=== PATIENT | male | born 1970 | race Caucasian/White ===

== ENCOUNTER 2020-12-12 14:23 | Emergency (ER) | payer SELFPAY ==
[2020-12-12 14:34] VITALS: BP 152/96; PULSE 80; RESP 16; TEMP 36.7; O2SAT 99
--- NOTE | 2020-12-12 14:39 | W.ED.GENAD ---
Discharge Plan Disposition Patient Disposition: HOME Condition: Stable Discharge Details Clinical Impression: Abrasion, corneal, Eye foreign body Primary Care Provider: Unknown,Unknown ED Provider: Jean Guillen Home Meds and New Rx's Prescriptions: New erythromycin 5 mg/gram (0.5 %) ointment 0.5 inch ophthalmic (eye) QID Qty: 1 RF: 0 Discharge Instructions Instructions: Corneal Abrasion (ED), Eye Foreign Body (ED) Additional Instructions: Foreign body of the eye removed without difficulty. [id number] Tylenol and/or Motrin as directed for discomfort. Avoid rubbing your eye. Erythromycin as directed. You may also use [id number] lubricating drops such as Systane or GenTeal, do not use at the same time as erythromycin. Please watch for new or worsening symptoms and return to the ER for any concerns. If symptoms are to persist over the next few days, I do recommend reaching out your clerical support specialist for reevaluation Medical Decision Making 50-year-old gentleman presents for potential foreign body and/or abrasion to his left eye after working outside yesterday. Eyelid flipped for examination. Tetracaine and fluorescein used for examination. Foreign body visualized and removed. Examined again with fluorescein, uptake present, corneal abrasion. Patient reports feeling asymptomatic. Denies blurry or double vision. We will instill Ilotycin here in the ER. HPI General Mode of arrival: ambulatory. Date/Time Provider Initiated Documentation: 12/12/20 14:38. Limitations to Documentation: no limitations. Information obtained by: patient. HPI Narrative: This is a 50-year-old man, denies significant past medical history, does not wear contacts or glasses, concerned about a potential foreign body and/or abrasion to his left eye. He states yesterday he was outside, felt as though dirt blew into his eye. He used jtam-nkp-bjvaccq drops with mild relief. Woke up this morning with minimal crusting. Denies any other injuries, fever, double vision or visual changes. Denies blurry vision Related Data Home Medications Medication Instructions Recorded Confirmed erythromycin 0.5 inch OPHTHALMIC (EYE) QID #1 g 12/12/20 Previous Rx's Medication Instructions Recorded erythromycin 0.5 inch OPHTHALMIC (EYE) QID #1 g 12/12/20 Allergies Allergy/AdvReac Type Severity Reaction Status Date / Time diphenhydramine Allergy Anaphylaxis Unverified 12/12/20 14:33 General Stated Complaint: EyeProblem SHANNON: 4 Review of Systems Constitutional Constitutional: Denies headache(s) Eyes Eyes: Denies blurry vision, Denies change in vision and Reports irritation ENT Ears, Nose, Mouth, and Throat: Denies headache(s) Neurologic Neurologic: Denies headache(s) [facility] Social History Smoking/Tobacco Use Status: Former Tobacco Use Smoking risk assessment performed?: Yes Alcohol Intake: current Alcohol Intake frequency: a few times a month Drug use: Never Do you feel safe at home: Yes Do you feel safe in your relationship?: Yes Exam Const General: cooperative, healthy appearing, comfortable and no acute distress Orientation: alert, awake and oriented x3 HENMT Head: normal to inspection, normocephalic and atraumatic Face and sinus: normal facial exam Mouth: moist mucous membranes Eyes Alignment and Position: alignment normal Periorbital: periorbital findings normal Eyelids: eyelids normal and other (Left upper lid flipped) Conjunctivae: conjunctival abnormality left conjunctival injection diffuse (mild) Sclera: sclerae normal Cornea: corneas abnormal on the left fluorescein used, abrasion and foreign body (3 o'clock position) and fluorescein used Pupils: PERRL EOM: EOM intact bilaterally Direct ophthalmoscopy: normal light reflex Neck Neck: normal visual inspection, full ROM, trachea midline and supple Resp Effort & Inspection: normal respiratory effort and able to speak in complete sentences Skin General skin exam: no rashes or lesions noted Neuro General: patient alert, patient awake, moves all extremities and no focal motor deficits Sensory Exam: no sensory deficits noted Psych Appearance: grossly normal Mental Status: mental status grossly normal Course Vital Signs Vital signs: Vital Signs Temperature 36.7 C 12/12/20 14:34 Pulse 80 12/12/20 14:34 Respiratory Rate 16 12/12/20 14:34 Blood Pressure 152/96 H 12/12/20 14:34 Pulse Oximetry 99 12/12/20 14:34 Temperature 36.7 C 12/12/20 14:34 Temperature Source Temporal Artery Scan 12/12/20 14:34 Pulse 80 12/12/20 14:34 Respiratory Rate 16 12/12/20 14:34 Respiratory Effort Non-Labored 12/12/20 14:37 Blood Pressure 152/96 H 12/12/20 14:34 Blood Pressure Position Sitting 12/12/20 14:34 Pulse Oximetry 99 12/12/20 14:34 Oxygen Delivery Method Room Air 12/12/20 14:34 Oxygen Flow Rate 0 12/12/20 14:34 Pain Level 7 12/12/20 14:34 Procedures FB Removal Eye Time Out performed: Yes Location: eye (L) Topical anesthetic used: tetracaine Foreign body: other (Unsure) Technique: cotton tip swab (Unsuccessful) and needle (Successful) Procedure performed under: direct visualization with magnification Post-procedure medication: ophthalmic antibiotic Patient tolerated procedure: well and no complications
[2020-12-12] MEDS: Balanced Salt Solution 15 ML BTL (15:03)
[2020-12-12] MEDS: Fluorescein STRIPS 100/BOX 1 MG (15:04)
[2020-12-12] MEDS: Tetracaine 0.5% 4 ML BTL (15:04)
[2020-12-12] MEDS: Erythromycin Ophth Oint 3.5 GM TUBE OS (15:35)
--- NOTE | 2020-12-12 16:47 | NUR.NOTE ---
Nursing Note: Vitaly called stating he still had some mild burning sensation in his eye. Is this normal?--reviewed Erthromycin eye ointment use-3-4 times daily. If discomfort becomes worse/visual changes return to er for re-evaluation.
== END 2020-12-12 15:43 | disposition home or self-care (01) ==
PROVIDERS: Emergency Provider Physician Assistant
DX: T15.02XA Foreign body in cornea, left eye, initial encounter (principal); X58.XXXA Exposure to other specified factors, initial encounter
CPT/HCPCS: 99283

== ENCOUNTER 2022-01-20 18:08 | Outpatient (REF) | payer BC, SELFPAY ==
[2022-01-20 18:57] LABS: ESR 24 mm/hr (0-20)
[2022-01-20 18:58] LABS: Abs Immature Grans 0.06 10^3/uL (0.0-0.06); Absolute Basophil Count 0.03 10^3/uL (0.0-0.2); Absolute Eosinophil Count 0.24 10^3/uL (0.0-0.7); Absolute Lymphocyte Count 1.05 10^3/uL (1.2-3.4); Absolute Monocyte Count 0.44 10^3/uL (0.1-0.8); Absolute Neutrophil Count 4.67 10^3/uL (1.2-6.7); Basophils % 0.5; Eosinophils % 3.7; HGB 15.6 g/dL (13.5-17.5); Immature Grans % 0.9; Lymphocytes % 16.2; MCH 29.2 pg (27.0-33.0); MCHC 34.7 % (32.0-36.0); MCV 84 fL (80-95); MPV 12.6 fL (8.0-11.0); Monocytes % 6.8; Neutrophils % 71.9; Platelet Count 174 10^3/uL (130-400); RBC 5.34 10^6/uL (4.36-5.78); RDW 12.3 % (11.8-14.1); RDW-SD 36.9 fL; WBC 6.49 10^3/uL (4.4-10.8)
[2022-01-20 19:19] LABS: ALT 67 U/L (16-63); AST 27 U/L (15-37); Albumin 3.7 g/dL (3.4-5.0); Alkaline Phosphatase 139 U/L (46-116); Anion Gap 5.8 mmol/L (3-11); BUN 16 mg/dL (7-18); Bilirubin, Total 0.8 mg/dL (0.2-1.0); C-Reactive Protein 2.44 mg/dL (0.0-0.3); CO2 31.2 mmol/L (21.0-32.0); CREATININE 1.3 mg/dL (0.70-1.30); Calcium 8.7 mg/dL (8.5-10.1); Chloride 99 mmol/L (98-107); Estimated GFR 65.69 (mL/min/1.73m2); Glucose 430 mg/dL (74-106); Sodium 136 mmol/L (136-145); TSH (W/Ref FT4) 1.49 uIU/mL (0.36-3.74); Total Protein 7.6 g/dL (6.4-8.2)
== END 2022-01-20 18:09 | disposition home or self-care (01) ==
LOC: LBN 18:08
PROVIDERS: Visit Provider Nurse Practitioner Family
DX: R63.4 Abnormal weight loss (principal)
CPT/HCPCS: 80053; 85652; 84443; 85025; 86140

== ENCOUNTER 2023-01-18 11:21 | Emergency (ER) | payer BC, SELFPAY ==
[2023-01-18] VITALS (43 sets, daily range): BP systolic 141–189; BP diastolic 82–143; PULSE 59–94; RESP 11–22; TEMP 36.5; O2SAT 94–100
[2023-01-18 12:05] LABS: Abs Immature Grans 0.02 10^3/uL (0.0-0.06); Absolute Basophil Count 0.03 10^3/uL (0.0-0.2); Absolute Lymphocyte Count 0.56 10^3/uL (1.2-3.4); Absolute Monocyte Count 0.34 10^3/uL (0.1-0.8); Absolute Neutrophil Count 3.58 10^3/uL (1.2-6.7); Basophils % 0.6; Eosinophils % 2.2; HCT 42.8 % (40.0-50.0); HGB 14.3 g/dL (13.5-17.5); Immature Grans % 0.4; Lymphocytes % 12.1; MCH 29.2 pg (27.0-33.0); MCHC 33.4 % (32.0-36.0); MCV 88 fL (80-95); Monocytes % 7.3; Neutrophils % 77.4; Platelet Count 126 10^3/uL (130-400); RBC 4.89 10^6/uL (4.36-5.78); RDW 14.1 % (11.8-14.1); RDW-SD 45.6 fL; WBC 4.63 10^3/uL (4.4-10.8)
--- NOTE | 2023-01-18 12:07 | W.ED.GENAD ---
Discharge Plan Disposition Patient Disposition: Home Condition: Serious Discharge Details Clinical Impression: Pancreatic mass, Hyperbilirubinemia, Transaminitis Primary Care Provider: Unknown,Unknown ED Provider: Asa Lawrence Home Meds and New Rx's Prescriptions: No Action albuterol sulfate 90 mcg/actuation HFA aerosol inhaler 2 puff inhalation Q6H PRN metformin 500 mg tablet 500 mg PO BID insulin glargine [Lantus Solostar U-100 Insulin] 100 unit/mL (3 mL) insulin pen 10 unit subcut QPM omeprazole 20 mg capsule,delayed release(DR/EC) 20 mg PO DAILY Patient Comments: pt states not taking meclizine 25 mg tablet 25 mg PO TID Patient Comments: pt states not taking erythromycin 5 mg/gram (0.5 %) ointment 0.5 inch ophthalmic (eye) QID Qty: 1 0RF Patient Comments: pt states not taking Discharge Instructions Stand Alone Forms: Work Release Medical Decision Making 1213?52-year-old male with history of insulin-dependent diabetes, on metformin, hypertension, here with mid abdominal discomfort over the past few days with associated jaundice. Patient is tender in his mid abdomen with no peritoneal findings. Patient is quite hypertensive. Afebrile, saturating well in no respiratory distress. Concern for acute hepatitis. Plan to obtain screening labs. -- Labs reviewed: transaminitis and hyperbilirubinemia (9.9) noted. 1359 -- I called [facility] transfer center and requested transfer. They are at capacity at [facility] and cannot accept the patient in transfer. I called [facility] transfer center and requested emergent transfer. They are at capacity and cannot accept the patient in transfer. [facility] transfer center contacted again and noted [facility] as potential option. Awaiting call back. 1448 --received call back from [facility] and unfortunately [facility] was unable to accept the patient in transfer because of lack of capability. [facility] was contacted and refused due to lack of capacity. [facility] was then contacted, I spoke with Dr. Medrano, discussed ED presentation and course and she will accept the patient in transfer. Lab Data Lab results reviewed: Yes I reviewed the patient's lab results. Labs: Laboratory Tests Range/Units 01/18/23 01/18/23 01/18/23 11:44 11:44 11:44 WBC (4.4-10.8) 10^3/uL 4.63 RBC (4.36-5.78) 10^6/uL 4.89 Hgb (13.5-17.5) g/dL 14.3 Hct (40.0-50.0) % 42.8 MCV (80-95) fL 88 MCH (27.0-33.0) pg 29.2 MCHC (32.0-36.0) % 33.4 RDW (11.8-14.1) % 14.1 Plt Count (130-400) 10^3/uL 126 L MPV (8.0-11.0) fL Immature Gran % 0.4 Neutrophils % 77.4 Lymphocytes % 12.1 Monocytes % 7.3 Eosinophils % 2.2 Basophils % 0.6 Nucleated RBC % (0.0-0.3) % 0.0 Absolute Neutrophils (1.2-6.7) 10^3/uL 3.58 Absolute Lymphocytes (1.2-3.4) 10^3/uL 0.56 L Absolute Monocytes (0.1-0.8) 10^3/uL 0.34 Absolute Eosinophils (0.0-0.7) 10^3/uL 0.10 Absolute Basophils (0.0-0.2) 10^3/uL 0.03 RBC Morphology Normal VBG Lactate (0.6-1.4) mmol/L Sodium (136-145) mmol/L 138 Potassium (3.5-5.1) mmol/L 3.4 L Chloride (98-107) mmol/L 100 Carbon Dioxide (21.0-32.0) mmol/L 28.2 Anion Gap (3-11) mmol/L 9.8 BUN (7-18) mg/dL 19 H Creatinine (0.70-1.30) mg/dL 1.2 Est GFR (CKD-EPI 2020) (mL/min/1.73m2) 71.86 Glucose (74-106) mg/dL 249 H Calcium (8.5-10.1) mg/dL 8.9 Magnesium (1.8-2.4) mg/dL 1.9 Total Bilirubin (0.2-1.0) mg/dL 9.9 H AST (15-37) U/L 152 H ALT (16-63) U/L 492 H Alkaline Phosphatase (46-116) U/L 269 H Troponin I Cancelled < 50 Total Protein (6.4-8.2) g/dL 7.4 Albumin (3.4-5.0) g/dL 3.6 Lipase Cancelled 11 L TSH (0.36-3.74) uIU/mL 1.38 Range/Units 01/18/23 01/18/23 11:44 12:18 WBC (4.4-10.8) 10^3/uL RBC (4.36-5.78) 10^6/uL Hgb (13.5-17.5) g/dL Hct (40.0-50.0) % MCV (80-95) fL MCH (27.0-33.0) pg MCHC (32.0-36.0) % RDW (11.8-14.1) % Plt Count (130-400) 10^3/uL MPV (8.0-11.0) fL Immature Gran % Neutrophils % Lymphocytes % Monocytes % Eosinophils % Basophils % Nucleated RBC % (0.0-0.3) % Absolute Neutrophils (1.2-6.7) 10^3/uL Absolute Lymphocytes (1.2-3.4) 10^3/uL Absolute Monocytes (0.1-0.8) 10^3/uL Absolute Eosinophils (0.0-0.7) 10^3/uL Absolute Basophils (0.0-0.2) 10^3/uL RBC Morphology VBG Lactate (0.6-1.4) mmol/L 1.1 Sodium (136-145) mmol/L Potassium (3.5-5.1) mmol/L Chloride (98-107) mmol/L Carbon Dioxide (21.0-32.0) mmol/L Anion Gap (3-11) mmol/L BUN (7-18) mg/dL Creatinine (0.70-1.30) mg/dL Est GFR (CKD-EPI 2020) (mL/min/1.73m2) Glucose (74-106) mg/dL Calcium (8.5-10.1) mg/dL Magnesium (1.8-2.4) mg/dL Total Bilirubin (0.2-1.0) mg/dL AST (15-37) U/L ALT (16-63) U/L Alkaline Phosphatase (46-116) U/L Troponin I Total Protein (6.4-8.2) g/dL Albumin (3.4-5.0) g/dL Lipase TSH (0.36-3.74) uIU/mL Cancelled HPI General Mode of arrival: ambulatory. Date/Time Provider Initiated Documentation: 01/18/23 11:26. Limitations to Documentation: no limitations. Information obtained by: patient. HPI Narrative: 52-year-old male with history of insulin-dependent diabetes, hypertension, here with chief complaint of abdominal discomfort. Patient notes abdominal discomfort over the past 3 to 4 days. Discomfort is localized to mid abdomen. He has associated loose stool over the past few days and has not been eating much. No associated nausea vomiting. Patient also notes yellow discoloration to his skin and eyes over the past couple days. Patient has no known history of liver disease. No associated fever. No tick bites. Patient denies regular Tylenol use and when he has used that he is only used a couple tablets. He does not consume alcohol regularly. Patient is a former smoker approximately 20+ pack year. Related Data Home Medications Medication Instructions Recorded Confirmed erythromycin 5 mg/gram (0.5 %) eye 0.5 inch ophthalmic (eye) QID #1 g 12/12/20 ointment albuterol sulfate 90 mcg/actuation 2 puff inhalation Q6H PRN 03/27/22 01/18/23 aerosol inhaler insulin glargine 100 unit/mL (3 10 unit subcut QPM 03/27/22 01/18/23 mL) subcutaneous pen (Lantus Solostar U-100 Insulin) meclizine 25 mg tablet 25 mg PO TID 03/27/22 metformin 500 mg tablet 500 mg PO BID 03/27/22 01/18/23 omeprazole 20 mg capsule,delayed 20 mg PO DAILY 03/27/22 release Previous Rx's Medication Instructions Recorded erythromycin 5 mg/gram (0.5 %) eye 0.5 inch ophthalmic (eye) QID #1 g 12/12/20 ointment Allergies Allergy/AdvReac Type Severity Reaction Status Date / Time diphenhydramine Allergy Anaphylaxis Unverified 12/12/20 14:33 General Stated Complaint: Abd Prob SHANNON: 3 Review of Systems All systems reviewed & are unremarkable except as noted in HPI and below Constitutional Constitutional: Denies fever(s) Gastrointestinal Gastrointestinal: Reports as per HPI PFSH All Active Problems (Updated 01/18/23 @ 14:51 by Asa Lawrence MD) Pancreatic mass (Acute) Hyperbilirubinemia (Acute) Transaminitis (Acute) Abnormal weight loss (Acute) Asthma (Chronic) Hypertension (Chronic) Diabetes (Chronic) Screening for colon cancer (Acute) Abrasion, corneal (Acute) Eye foreign body (Acute) Social History Smoking/Tobacco Use Status: Former Tobacco Use Smoking risk assessment performed?: Yes Alcohol Intake: current Alcohol Intake frequency: a few times a month Drug use: Never Do you feel safe at home: Yes Do you feel safe in your relationship?: Yes Course Vital Signs Vital signs: Vital Signs Temperature 36.5 C 01/18/23 11:30 Pulse 81 01/18/23 11:30 Respiratory Rate 16 01/18/23 11:30 Blood Pressure 181/114 H 01/18/23 11:30 Pulse Oximetry 97 01/18/23 11:30 Temperature 36.5 C 01/18/23 11:30 Pulse 72 01/18/23 11:51 Pulse 74 01/18/23 11:52 Respiratory Rate 19 01/18/23 11:52 Respiratory Effort Normal 01/18/23 11:47 Blood Pressure 171/99 H 01/18/23 11:51 Blood Pressure Mean 118 01/18/23 11:51 Pulse Oximetry 97 01/18/23 11:52 Oxygen Delivery Method Room Air 01/18/23 11:30 Oxygen Flow Rate 0 01/18/23 11:30 Pain Level 5 01/18/23 11:54 Comment States abdominal pain is stabbing, consistent. Nothing makes worse or better. 01/18/23 11:30 Lab/Test Results Lab/Test Results: Laboratory Tests Range/Units 01/18/23 11:44 Troponin I Cancelled Lipase Cancelled
[2023-01-18 12:20] LABS: Diff Comment PLT Morph Reviewed; RBC Morphology Normal
[2023-01-18 12:22] LABS: Lactate 1.1 mmol/L (0.6-1.4)
--- NOTE | 2023-01-18 12:30 | DI.CT_ITS ---
Exam(s) CT ABDOMEN PELVIS W EXAM: CT ABDOMEN PELVIS W CLINICAL HISTORY: mid abdominal pain, acute hyperbilirubinemia TECHNIQUE: Imaging Protocol: Axial computed tomography images with coronal and sagittal reformatted images were created and reviewed CONTRAST MATERIAL: Intravenous: Omnipaque 350 Contrast volume:100 mL Oral: No COMPARISON: No exams were available for comparison FINDINGS: ABDOMEN: Lung Bases: Small hiatal hernia. Liver: Normal density. There is a 5 mm hypodensity in the anterior segment of the right lobe of the l iver. There is a 4 mm hypodensity in the posterior segment of the right lobe of the liver. Portal, Superior Mesenteric, and Splenic Veins: The pancreatic head mass narrows the proximal main po rtal vein. Gallbladder and Biliary Tract: Please see the section under pancreas. There is distention of the gal lbladder. Pancreas: There is a 4.3 x 3.7 cm hypodense mass in the head of the pancreas. There is atrophy of th e distal pancreas with dilatation of the pancreatic duct. There is intra and extrahepatic bile duct dilatation and distention of the gallbladder. Spleen: Splenomegaly. Adrenals: No masses seen. Kidneys: Normal size, contour and axis. No radiodense stones or obstructive uropathy. No masses seen. Abdominal Aorta: Abdominal portion non-dilated. Bowel: No obstruction or bowel wall thickening. There is no evidence of appendicitis. There is a mod erate amount of stool in the colon. There is an area of narrowing near the rectosigmoid junction. T here is dilatation of the sigmoid colon proximally. This may be in peristalsis but small mass cannot be excluded. Colonoscopy should be considered for further evaluation. Peritoneal Cavity: There is a trace amount of free fluid in the pelvis. No free air. Lymph Nodes: Within normal limits. Bones: Within normal limits for the patient's age. No aggressive osseous lesions. Soft Tissues: There is a fat containing left inguinal hernia. PELVIS: Bladder: Symmetric distention, no gross wall thickening. Reproductive Organs: Unremarkable as visualized. Lymph Nodes: Within normal limits. Bones: Within normal limits for the patient's age. IMPRESSION: 1. 4.3 x 3.7 cm pancreatic head mass consistent with malignancy. It causes obstruction of the pancre atic and common bile duct. There is also compression upon the adjacent portal vein. 2. Distended gallbladder with intra and extrahepatic biliary ductal dilatation secondary to the pancr eatic mass. No gallstones are seen. 3. Splenomegaly. 4. Area of narrowing versus peristalsis in the rectosigmoid junction. Colonoscopy should be consider ed for further evaluation. Unexpected findings RADIATION DOSE DELIVERED: 980.14mGy.cm Total DLP DATA REPOSITORY: All CT scans at this facility are submitted to the National Radiology Data Registry (NRDR) Dose Index Registry (DIR) with the [employer] ([employer]). RADIATION OPTIMIZATION: All CT scans at this facility use at least one of these dose optimization te chniques: automated exposure control; mA and/or kV adjustment per patient size (includes targeted exa ms where dose is matched to clinical indication); or iterative reconstruction.
[2023-01-18 12:32] LABS: ALT 492 U/L (16-63); AST 152 U/L (15-37); Albumin 3.6 g/dL (3.4-5.0); Alkaline Phosphatase 269 U/L (46-116); Anion Gap 9.8 mmol/L (3-11); BUN 19 mg/dL (7-18); Bilirubin, Total 9.9 mg/dL (0.2-1.0); CO2 28.2 mmol/L (21.0-32.0); CREATININE 1.2 mg/dL (0.70-1.30); Calcium 8.9 mg/dL (8.5-10.1); Chloride 100 mmol/L (98-107); Estimated GFR 71.86 (mL/min/1.73m2); Glucose 249 mg/dL (74-106); Lipase 11 U/L (16-77); Magnesium 1.9 mg/dL (1.8-2.4); Potassium 3.4 mmol/L (3.5-5.1); Sodium 138 mmol/L (136-145); TSH (W/Ref FT4) 1.38 uIU/mL (0.36-3.74); Total Protein 7.4 g/dL (6.4-8.2); Troponin I < 50 ng/L (<or=60)
[2023-01-18] MEDS: Normal Saline - Diluent 50 ML VIAL IV (13:16)
[2023-01-18] MEDS: Omnipaque 350 MG/ML 100 ML BTL IJ (13:17)
--- NOTE | 2023-01-18 13:38 | DI.VRAD_ITS ---
PROCEDURE INFORMATION: Exam: CT Abdomen And Pelvis With Contrast Exam date and time: 01/18/2023 1:05 PM Age: 52 years old Clinical indication: Abdominal pain; Generalized TECHNIQUE: Imaging protocol: Computed tomography of the abdomen and pelvis with contrast. Radiation optimization: All CT scans at this facility use at least one of these dose optimization techniques: automated exposure control; mA and/or kV adjustment per patient size (includes targeted exams where dose is matched to clinical indication); or iterative reconstruction. Contrast material: OMNIPAQUE 350; Contrast volume: 100 ml; Contrast route: INTRAVENOUS (IV); COMPARISON: No relevant prior studies available. FINDINGS: Liver: No mass. Intra hepatic and extrahepatic ductal dilatation Gallbladder and bile ducts: The gallbladder is distended 13 cm. There is intra hepatic and extrahepatic ductal dilatation. The common bile duct is dilated 16 mm. No definite gallstone in the dilated common duct. . Pancreas: Mass in the head of the pancreas 3.95 x 3.67. Series 4, image 26. It is obstructing the pancreatic duct and the common duct. Findings consistent with pancreatic malignancy. Spleen: Splenomegaly 14 cm. Adrenal glands: Normal. No mass. Kidneys and ureters: Normal. No hydronephrosis. Stomach and bowel: Unremarkable. No obstruction. No mucosal thickening. Appendix: No evidence of appendicitis. Intraperitoneal space: Unremarkable. No free air. No significant fluid collection. Vasculature: Unremarkable. No abdominal aortic aneurysm. Lymph nodes: Unremarkable. No enlarged lymph nodes. Urinary bladder: Unremarkable as visualized. Reproductive: Unremarkable as visualized. Bones/joints: Unremarkable. No acute fracture. Soft tissues: Unremarkable. IMPRESSION: 1. Mass in the head of the pancreas 3.95 x 3.67. Series 4, image 26. It is obstructing the pancreatic duct and the common duct. Findings consistent with pancreatic malignancy. 2. The gallbladder is distended 13 cm. There is intra hepatic and extrahepatic ductal dilatation. The common bile duct is dilated 16 mm. No definite gallstone in the dilated common duct. . 3. Splenomegaly 14 cm. THIS REPORT CONTAINS FINDINGS THAT MAY BE CRITICAL TO PATIENT CARE. The findings were verbally communicated via telephone conference with Asa Lawrence at 1:37 PM EDT on 01/18/2023. The findings were acknowledged and understood. Dictated and Authenticated by: Hussein Looney MD. Ordering:VIJAYA Bray MD
[2023-01-18] MEDS: LORazepam 2 MG/ML VIAL 0.5 MG IVP ×2 (14:15→15:38)
[2023-01-18] MEDS: Lactated Ringers 1,000 ML 125 ML IV (14:57)
[2023-01-21 09:49] LABS: Lyme Ab w Rflx to Lyme Confirm Negative (Negative)
[2023-01-21 11:03] LABS: Hepatitis A Antibody IgM Negative (Negative); Hepatitis B Core Antibody Negative (Negative); Hepatitis B surface Ag Negative (Negative); Hepatitis C Ab w Rflx HCV PCR Negative (Negative)
[2023-01-23 09:17] LABS: Anaplasma phagocytophilum Negative (Negative); B. miyamotoi PCR Negative (Negative); Babesia divergens/MO-1 Negative (Negative); Babesia duncani Negative (Negative); Babesia microti Negative (Negative); Ehrlichia chaffeensis Negative (Negative); Ehrlichia ewingii/canis Negative (Negative); Ehrlichia muris eauclairensis Negative (Negative)
== END 2023-01-18 15:43 | disposition home or self-care (01) ==
PROVIDERS: Emergency Provider Student in an Organized Health Care Education/Training Program
DX: R10.9 Unspecified abdominal pain (principal); E80.6 Other disorders of bilirubin metabolism; R19.00 Intra-abdominal and pelvic swelling, mass and lump, unspecified site; R74.01 Elevation of levels of liver transaminase levels; E11.9 Type 2 diabetes mellitus without complications; Z79.84 Long term (current) use of oral hypoglycemic drugs; I10 Essential (primary) hypertension
CPT/HCPCS: 36415; 80053; 83690; 86704; 86709; 86803; 87340; 87798; 96374; 96375; 99285; 74177; 83605; 83735; 84443; 84484; 85025; 86618; J2060; J3490

== ENCOUNTER 2023-01-25 12:34 | Emergency (ER) | payer BC, SELFPAY ==
[2023-01-25 12:51] VITALS: BP 162/100; PULSE 80; RESP 20; TEMP 37; O2SAT 99
--- NOTE | 2023-01-25 13:15 | W.ED.GENAD ---
Discharge Plan Disposition Patient Disposition: Home Condition: Stable Discharge Details Clinical Impression: Rash Primary Care Provider: Unknown,Unknown ED Provider: Saravanan Hastings Home Meds and New Rx's Prescriptions: New prednisone 20 mg tablet 60 mg PO DAILY 5 Days Qty: 15 0RF Continued albuterol sulfate 90 mcg/actuation HFA aerosol inhaler 2 puff inhalation Q6H PRN metformin 500 mg tablet 500 mg PO BID insulin glargine [Lantus Solostar U-100 Insulin] 100 unit/mL (3 mL) insulin pen 10 unit subcut QPM Discontinued omeprazole 20 mg capsule,delayed release(DR/EC) 20 mg PO DAILY Patient Comments: pt states not taking meclizine 25 mg tablet 25 mg PO TID Patient Comments: pt states not taking erythromycin 5 mg/gram (0.5 %) ointment 0.5 inch ophthalmic (eye) QID Qty: 1 0RF Patient Comments: pt states not taking Discharge Instructions Instructions: Acute Rash (ED) Additional Instructions: follow up with your primary care provider as scheduled tomorrow if you feel more ill, have difficulty breathing or fevers return to the emergency department Medical Decision Making 52 yo male recently seen here and transferred to [place] (all other tertiary care centers at [facility]) for jaundice and pancreatic mass who comes in with cc of rash. HE had ercp and two stents placed while he was there and is waiting for biopsy results before seeing [place] [facility] [place]. He states for a day he has an itchy rash on his arms and torso, no fevers, chills, dyspnea. HE doesn't appear jaundiced and states this resolved shortly after his procedure. He has mild erythematous patches on his right inner arm that is not warm to touch and also on his back of various sizes. He has no severe pain, no mucous membrane lesions. The rash appears to be a dermatitis, no findings on exam or history to suggest infectious etiology, sjs/ten, or anaphylaxis. Will provide short course of oral steroids, has pcp f/u tomorrow, return precautions given. Differential Diagnosis Differential Diagnosis: contact dermatitis, urticaria HPI General Mode of arrival: ambulatory. Date/Time Provider Initiated Documentation: 01/25/23 12:44. Limitations to Documentation: no limitations. Information obtained by: patient. History of Present Illness 52 year old M presents to the emergency department with the chief complaint of rash, described as moderate, Patient started experiencing this day(s) (1) and it has been constant. No relieving factors improve symptom(s), No exacerbating factors reported . Patient notes denies chest pain, fever/chills and shortness of breath. Patient did receive the following treatments prior to arrival, none Related Data Home Medications Medication Instructions Recorded Confirmed albuterol sulfate 90 mcg/actuation 2 puff inhalation Q6H PRN 03/27/22 01/18/23 aerosol inhaler insulin glargine 100 unit/mL (3 10 unit subcut QPM 03/27/22 01/18/23 mL) subcutaneous pen (Lantus Solostar U-100 Insulin) metformin 500 mg tablet 500 mg PO BID 03/27/22 01/18/23 prednisone 20 mg tablet 60 mg PO DAILY 5 days #15 tabs 01/25/23 Previous Rx's Medication Instructions Recorded prednisone 20 mg tablet 60 mg PO DAILY 5 days #15 tabs 01/25/23 Allergies Allergy/AdvReac Type Severity Reaction Status Date / Time diphenhydramine Allergy Anaphylaxis Unverified 01/25/23 12:55 General Stated Complaint: RashLesion SHANNON: 4 Review of Systems All systems reviewed & are unremarkable except as noted in HPI and below Constitutional Constitutional: Denies chills, Denies fever(s) and Denies weakness Cardiovascular Cardiovascular: Denies chest pain and Denies dyspnea Respiratory Respiratory: Denies cough and Denies dyspnea Gastrointestinal Gastrointestinal: Denies abdominal pain, Denies nausea and Denies vomiting Musculoskeletal Musculoskeletal: Denies joint swelling Neurologic Neurologic: Denies weakness Psychiatric Psychiatric: Denies depression PFSH All Active Problems (Updated 01/25/23 @ 13:16 by Saravanan Hastings MD) Pancreatic mass (Acute) Hyperbilirubinemia (Acute) Transaminitis (Acute) Rash (Acute) Abnormal weight loss (Acute) Asthma (Chronic) Hypertension (Chronic) Diabetes (Chronic) Screening for colon cancer (Acute) Abrasion, corneal (Acute) Eye foreign body (Acute) Social History Smoking/Tobacco Use Status: Former Tobacco Use Smoking risk assessment performed?: Yes Alcohol Intake: current Alcohol Intake frequency: a few times a month Drug use: Never Substance use type: does not use Do you feel safe at home: Yes Do you feel safe in your relationship?: Yes Exam Const General: no acute distress Orientation: alert HENMT Head: normal to inspection Ears: external ears normal General nose exam: external nose normal Mouth: moist mucous membranes Eyes General: appearance normal, both eyes and all related structures Neck Neck: normal visual inspection Resp Effort & Inspection: normal respiratory effort and able to speak in complete sentences Cardio Rate: regular rate Skin General skin exam: elasticity normal Neuro General: patient alert and patient oriented x3 Extrem General: normal to inspection Psych Mental Status: mental status grossly normal Course Vital Signs Vital signs: Vital Signs Temperature 37.0 C 01/25/23 12:51 Pulse 80 01/25/23 12:51 Respiratory Rate 20 01/25/23 12:51 Blood Pressure 162/100 H 01/25/23 12:51 Pulse Oximetry 99 01/25/23 12:51 Temperature 37.0 C 01/25/23 12:51 Pulse 80 01/25/23 12:51 Respiratory Rate 20 01/25/23 12:51 Respiratory Effort Normal 01/25/23 12:56 Blood Pressure 162/100 H 01/25/23 12:51 Blood Pressure Position Sitting 01/25/23 12:51 Pulse Oximetry 99 01/25/23 12:51
[2023-01-25 13:28] VITALS: BP 151/88; PULSE 65; RESP 18; O2SAT 97
== END 2023-01-25 13:29 | disposition home or self-care (01) ==
PROVIDERS: Emergency Provider Emergency Medicine
DX: L50.9 Urticaria, unspecified (principal); K86.89 Other specified diseases of pancreas; I10 Essential (primary) hypertension; E11.9 Type 2 diabetes mellitus without complications; Z79.4 Long term (current) use of insulin
CPT/HCPCS: 99282; 99283

== ENCOUNTER 2023-01-26 13:49 | Outpatient (REF) | payer BC, SELFPAY ==
[2023-01-26 14:43] LABS: HCT 41.7 % (40.0-50.0); HGB 13.7 g/dL (13.5-17.5); MCH 29.5 pg (27.0-33.0); MCHC 32.9 % (32.0-36.0); MCV 90 fL (80-95); Platelet Count 152 10^3/uL (130-400); RBC 4.64 10^6/uL (4.36-5.78); RDW 13.2 % (11.8-14.1); RDW-SD 44.2 fL; WBC 7.44 10^3/uL (4.4-10.8)
[2023-01-26 15:04] LABS: ALT 209 U/L (16-63); AST 51 U/L (15-37); Albumin 3.4 g/dL (3.4-5.0); Alkaline Phosphatase 213 U/L (46-116); Anion Gap 7.4 mmol/L (3-11); BUN 16 mg/dL (7-18); Bilirubin, Total 3.1 mg/dL (0.2-1.0); CO2 29.6 mmol/L (21.0-32.0); CREATININE 1.1 mg/dL (0.70-1.30); Chloride 101 mmol/L (98-107); Estimated GFR 79.77 (mL/min/1.73m2); Glucose 239 mg/dL (74-106); Sodium 138 mmol/L (136-145); Total Protein 6.9 g/dL (6.4-8.2)
== END 2023-01-26 13:50 | disposition home or self-care (01) ==
LOC: NCHCN 13:49
PROVIDERS: PCP Family Medicine; Visit Provider Family Medicine
DX: I10 Essential (primary) hypertension (principal); E11.9 Type 2 diabetes mellitus without complications
CPT/HCPCS: 80053; 85027

== ENCOUNTER 2023-02-20 02:32 | Outpatient (CLI) | payer BC, SELFPAY ==
[2023-02-20 08:13] LABS: Abs Immature Grans 0.04 10^3/uL (0.0-0.06); Absolute Basophil Count 0.03 10^3/uL (0.0-0.2); Absolute Lymphocyte Count 1.07 10^3/uL (1.2-3.4); Absolute Monocyte Count 0.47 10^3/uL (0.1-0.8); Absolute Neutrophil Count 4.22 10^3/uL (1.2-6.7); Basophils % 0.5; Eosinophils % 12.1; HCT 38.4 % (40.0-50.0); Immature Grans % 0.6; Lymphocytes % 16.1; MCH 29.2 pg (27.0-33.0); MCHC 33.9 % (32.0-36.0); MCV 86 fL (80-95); MPV 12.1 fL (8.0-11.0); Monocytes % 7.1; Neutrophils % 63.6; Platelet Count 116 10^3/uL (130-400); RBC 4.45 10^6/uL (4.36-5.78); RDW 13.2 % (11.8-14.1); RDW-SD 41.2 fL; WBC 6.63 10^3/uL (4.4-10.8)
[2023-02-20 08:33] LABS: ALT 33 U/L (16-63); AST 12 U/L (15-37); Albumin 3.3 g/dL (3.4-5.0); Alkaline Phosphatase 122 U/L (46-116); Anion Gap 6.4 mmol/L (3-11); BUN 15 mg/dL (7-18); Bilirubin, Total 0.8 mg/dL (0.2-1.0); CO2 29.6 mmol/L (21.0-32.0); CREATININE 1.1 mg/dL (0.70-1.30); Calcium 8.8 mg/dL (8.5-10.1); Calculated LDL 86 mg/dL (<100); Chloride 100 mmol/L (98-107); Cholesterol 158 mg/dL (<200); Estimated GFR 79.77 (mL/min/1.73m2); Glucose 290 mg/dL (74-106); HDL Cholesterol 44 mg/dL (40-60); Potassium 3.6 mmol/L (3.5-5.1); Sodium 136 mmol/L (136-145); Total Protein 7.3 g/dL (6.4-8.2); Triglyceride 144 mg/dL (<150)
[2023-02-23 10:58] LABS: CA 19-9 534 U/mL (<35)
== END 2023-02-20 02:33 | disposition home or self-care (01) ==
LOC: LBO 02:32
PROVIDERS: PCP Family Medicine; Visit Provider Nurse Practitioner Family
DX: E11.9 Type 2 diabetes mellitus without complications (principal); C25.0 Malignant neoplasm of head of pancreas
CPT/HCPCS: 36415; 80053; 80061; 85025; 86301

== ENCOUNTER 2023-03-08 00:03 | Outpatient (RCR) | payer BC, SELFPAY ==
[2023-02-22] MEDS: Heparin 500 UNITS/5 ML SYRINGE IV (13:23)
[2023-02-22] MEDS: Normal Saline Flush 10 ML SYR IVP (13:24)
[2023-03-06] MEDS: Normal Saline Flush 10 ML SYR IVP (08:13)
[2023-03-06 08:54] LABS: Abs Immature Grans 0.03 10^3/uL (0.0-0.06); Absolute Basophil Count 0.03 10^3/uL (0.0-0.2); Absolute Eosinophil Count 0.29 10^3/uL (0.0-0.7); Absolute Lymphocyte Count 0.94 10^3/uL (1.2-3.4); Absolute Monocyte Count 0.72 10^3/uL (0.1-0.8); Absolute Neutrophil Count 4.25 10^3/uL (1.2-6.7); Basophils % 0.5; Eosinophils % 4.6; HCT 35.7 % (40.0-50.0); HGB 12.2 g/dL (13.5-17.5); Immature Grans % 0.5; MCH 29.3 pg (27.0-33.0); MCHC 34.2 % (32.0-36.0); MCV 86 fL (80-95); MPV 11.4 fL (8.0-11.0); Monocytes % 11.5; Neutrophils % 67.9; Platelet Count 125 10^3/uL (130-400); RBC 4.17 10^6/uL (4.36-5.78); RDW-SD 39.8 fL; WBC 6.26 10^3/uL (4.4-10.8)
[2023-03-06 09:01] LABS: ALT 30 U/L (16-63); AST 12 U/L (15-37); Albumin 3.2 g/dL (3.4-5.0); Alkaline Phosphatase 107 U/L (46-116); Anion Gap 7.5 mmol/L (3-11); BUN 13 mg/dL (7-18); Bilirubin, Total 0.8 mg/dL (0.2-1.0); CO2 29.5 mmol/L (21.0-32.0); CREATININE 1.1 mg/dL (0.70-1.30); Calcium 9.1 mg/dL (8.5-10.1); Chloride 103 mmol/L (98-107); Estimated GFR 79.77 (mL/min/1.73m2); Glucose 209 mg/dL (74-106); Potassium 3.5 mmol/L (3.5-5.1); Sodium 140 mmol/L (136-145); Total Protein 7.2 g/dL (6.4-8.2)
[2023-03-08 13:06] VITALS: BP 123/81; PULSE 80; RESP 16; TEMP 36.2; O2SAT 98
[2023-03-08] MEDS: Normal Saline Flush 10 ML SYR IVP (13:11)
[2023-03-08] MEDS: Heparin 500 UNITS/5 ML SYRINGE IV (13:12)
[2023-03-09 16:30] LABS: CA 19-9 547 U/mL (<35)
== END 2023-03-17 23:59 | disposition home or self-care (01) ==
LOC: INF 00:03
PROVIDERS: PCP Family Medicine; Visit Provider Internal Medicine Hematology & Oncology
DX: C25.0 Malignant neoplasm of head of pancreas (principal); Z45.2 Encounter for adjustment and management of vascular access device
CPT/HCPCS: 36591; 80053; 96523; 85025; 86301

== ENCOUNTER 2023-04-02 14:57 | Emergency (ER) | payer BC, SELFPAY ==
[2023-04-02] VITALS (16 sets, daily range): BP systolic 120–162; BP diastolic 87–105; PULSE 77–93; RESP 13–21; TEMP 36.4–36.6; O2SAT 94–99
--- NOTE | 2023-04-02 15:00 | DI.CT_ITS ---
Exam(s) CT ABDOMEN PELVIS W EXAM: CT ABDOMEN PELVIS W CLINICAL HISTORY: abd pain; hx pancreatic ca. TECHNIQUE: Imaging Protocol: Axial computed tomography images with coronal and sagittal reformatted images were created and reviewed CONTRAST MATERIAL: Intravenous: Omnipaque-350 100cc Oral: None COMPARISON: CT CT ABDOMEN PELVIS W from 01/18/2023 FINDINGS: VISUALIZED LUNG BASES: No significant nodules nor pleural effusions evident. Tiny calcified granulom a left lower lobe posteriorly. ABDOMEN: There has been interval placement of a self expanding-type cyst stent in the common bile duct. LIVER: There is a new hypodense lesion in the caudate lobe of the liver which measures approximately 3.5 x 4 by7.5cm craniocaudal. This was not previously present either represents rapid malignant spre ad or abscess. GALLBLADDER/BILIARY: Gallbladder is less distended than previous. Mild wall thickening. Some air is seen in the gallbladder lumen as well as within intrahepatic ducts. No evidence of gallbladder perf oration. PANCREAS: Pancreatic head malignant mass is again noted. Pancreatic duct is dilated. SPLEEN: Splenomegaly again noted, measuring 17 cm craniocaudal.. No intrasplenic lesions. Splenic v ein is patent but prominent in diameter, measuring 1.5 cm. There is narrowing of the portal vein con fluence related to adjacent neoplasm. There is significant narrowing of the portal vein now evident anterior to the lower aspect of the of the above described new mass or abscess. There is no intralum inal thrombus within the portal vein at this time. Some periportal edema is noted. ADRENALS: There are no significant adrenal masses. KIDNEYS:No cysts evident. No solid renal masses. No calculi nor hydronephrosis.. ABDOMINAL AORTA: Abdominal aorta is not enlarged. There is some tumor case mint around the right bra nch of the celiac which is the common hepatic artery. There is some tumor tissue adjacent to but not encircling the superior mesenteric artery. LYMPH NODES:Mildly prominent retroperitoneal lymph nodes. No para-aortic adenopathy. ABDOMINAL WALL: Fat containing left inguinal hernia. GI: There are few slightly dilated and fluid-filled small bowel loops but there does not appear to be small bowel obstruction. : Is predominately collapsed and difficult to evaluate. PELVIS: GI: Appendix not able to be identified as separate structure but no obvious appendicitis.No evidence of sigmoid diverticulitis. LYMPH NODES: There is no intrapelvic nor inguinal adenopathy. REPRODUCTIVE: Prostate size normal. URINARY BLADDER: Mildly distended. Otherwise unremarkable. OSSEOUS: No fractures and no significant osseous lesions. IMPRESSION: 1. Compared to prior CT scan of 01/18/2023 there has been interval placement of a self expanding-type stent in the CBD. The lower most aspect of the stent is in the lower CBD. The CBD diameter immedia tely above the stent is 11 mm. 2. There is a new abnormal peripherally enhancing hypodensity in and below the caudate lobe adjacent to the stent which measures approximately 7.5 cm craniocaudal by 3.5 x 4.5 cm. Possibly an abscess or rapid contiguous metastatic growth. Other possibility given the recent ERCP intervention would be from bile leak. 3. Splenomegaly again noted 4. There is now some narrowing of the portal vein adjacent to the above finding and just posterior to the CBD stent. At this time there is no obvious intraluminal thrombus within the portal vein. Other findings as above. Called by myself to ER physician RADIATION DOSE DELIVERED: Total DLP DATA REPOSITORY: All CT scans at this facility are submitted to the National Radiology Data Registry (NRDR) Dose Index Registry (DIR) with the [employer] (ACR). RADIATION OPTIMIZATION: All CT scans at this facility use at least one of these dose optimization te chniques: automated exposure control; mA and/or kV adjustment per patient size (includes targeted exa ms where dose is matched to clinical indication); or iterative reconstruction.
--- NOTE | 2023-04-02 15:11 | ED.GENADUL_ITS ---
Discharge Plan Disposition Patient Disposition: Home Condition: Stable Discharge Details Clinical Impression: Nausea & vomiting, Abdominal pain Primary Care Provider: Zohaib Camargo ED Provider: Andrea Álvarez Home Meds and New Rx's Prescriptions: New prochlorperazine [Compazine] 25 mg suppository 25 mg [place] BID PRN (Reason: nausea and vomiting) Qty: 12 0RF No Action albuterol sulfate 90 mcg/actuation HFA aerosol inhaler 2 puff inhalation Q6H PRN metformin 500 mg tablet 500 mg PO BID insulin glargine [Lantus Solostar U-100 Insulin] 100 unit/mL (3 mL) insulin pen 10 unit subcut QPM Discharge Instructions Instructions: Acute Nausea and Vomiting (ED), Abdominal Pain (ED) HPI General Date/Time Provider Initiated Documentation: 04/02/23 15:03 . HPI Narrative: 52 year old male presents to the ED with c/o n/v/d and abd pain. He has recent dx of pancreatic ca 2 months ago, on chemo, last tx was 1 week ago (gets it every 2 weeks). He has not felt well for the past few days, but n/v/d today. No fever/chills. No cp/sob. He did try 2 different nausea meds at home without any relief. Related Data Home Medications Medication Instructions Recorded Confirmed albuterol sulfate 90 mcg/actuation 2 puff inhalation Q6H PRN 03/27/22 04/02/23 aerosol inhaler insulin glargine 100 unit/mL (3 10 unit subcut QPM 03/27/22 04/02/23 mL) subcutaneous pen (Lantus Solostar U-100 Insulin) metformin 500 mg tablet 500 mg PO BID 03/27/22 04/02/23 prochlorperazine 25 mg rectal 25 mg [place] BID PRN nausea and 04/02/23 suppository (Compazine) vomiting #12 ea Previous Rx's Medication Instructions Recorded prochlorperazine 25 mg rectal 25 mg [place] BID PRN nausea and 04/02/23 suppository (Compazine) vomiting #12 ea Allergies Allergy/AdvReac Type Severity Reaction Status Date / Time diphenhydramine Allergy Anaphylaxis Unverified 04/02/23 15:46 General Stated Complaint: Nausea/Vomit/Diar SHANNON: 3 Review of Systems Narrative: CONST: no fever or chills HEENT: no sore throat SKIN: no rashes PULM: no sob, no cough CARD: no cp, no palpitations ABD: +abd pain, +n/v/d EXTR: no swelling NEURO: No focal weakness PFSH All Active Problems (Updated 04/02/23 @ 20:07 by Andrea Álvarez MD) Abdominal pain (Acute) Nausea & vomiting (Acute) Abnormal weight loss (Acute) Asthma (Chronic) Hypertension (Chronic) Diabetes (Chronic) Screening for colon cancer (Acute) Abrasion, corneal (Acute) Eye foreign body (Acute) Social History Smoking/Tobacco Use Status: Former Tobacco Use Smoking risk assessment performed?: Yes Alcohol Intake: current Alcohol Intake frequency: a few times a month Drug use: Never Substance use type: does not use Do you feel safe at home: Yes Do you feel safe in your relationship?: Yes Exam Narrative Exam Narrative: Const: well appearing, no acute distress HEENT: normocephalic, atraumatic; MMM Lungs: CTA, no wheezing or rales Heart: RRR Abd: soft, NT/ND Ext: well perfused Neuro: non-focal Skin: no rashes Course Reevaluation(s) Initial Evaluation: spoke to the radiologist, new hypodense area adjacent to his biliary stent compared to recent scan. Pt feeling better, still having a little pain, but is in LLQ, will give a little more pain meds, PO ok now. Consult out to [facility] to discuss CT. Reevaluation: 1857 - attempted to speak to [facility] GI, call back from transfer center, stent placed at [facility], recommend calling GI there but if unable to get in touch with anyone then can call back. [facility] contacted for consult. 1955 - pt states he wants to go home, still waiting for GI callback. He feels better, nausea improved, and tolerating PO. Not unreasonable, discussed risks including permanant disability and , he and verbalize understanding. They will plan call their doctors in the morning to f/u on CT findings. Reevaluation #2: 2056 - I spoke to GI at [facility], discussed all pertinent aspects of case, says CT findings not complication of stent, that would have happened in January, suspects extension of his cancer. Vital Signs Vital signs: Vital Signs Temperature 36.6 C 04/02/23 14:58 Pulse 93 H 04/02/23 14:58 Respiratory Rate 16 04/02/23 14:58 Blood Pressure 162/105 H 04/02/23 14:58 Pulse Oximetry 99 04/02/23 14:58 Temperature 36.6 C 04/02/23 15:08 Temperature Source Skin 04/02/23 15:08 Pulse 93 H 04/02/23 15:08 Respiratory Rate 16 04/02/23 15:08 Respiratory Effort Normal, Non-Labored 04/02/23 15:10 Blood Pressure 133/100 H 04/02/23 15:08 Blood Pressure Position Sitting 04/02/23 15:08 Pulse Oximetry 99 04/02/23 15:08 Oxygen Delivery Method Room Air 04/02/23 15:08 Oxygen Flow Rate 0 04/02/23 15:08 Pain Level 6 04/02/23 15:08
[2023-04-02] MEDS: MORPHine 4 MG/ML SYR IVP ×2 (15:31→18:53)
[2023-04-02] MEDS: Ondansetron 4 MG/2 ML VIAL 8 MG IVP (15:31)
[2023-04-02] MEDS: Normal Saline 1,000 ML 1000 ML IV (15:32)
[2023-04-02 15:47] LABS: Abs Immature Grans 0.07 10^3/uL (0.0-0.06); Absolute Basophil Count 0.02 10^3/uL (0.0-0.2); Absolute Eosinophil Count 0.06 10^3/uL (0.0-0.7); Absolute Lymphocyte Count 0.85 10^3/uL (1.2-3.4); Absolute Monocyte Count 0.28 10^3/uL (0.1-0.8); Absolute Neutrophil Count 5.02 10^3/uL (1.2-6.7); Basophils % 0.3; HCT 34.7 % (40.0-50.0); HGB 11.7 g/dL (13.5-17.5); Immature Grans % 1.1; Lymphocytes % 13.5; MCH 27.4 pg (27.0-33.0); MCHC 33.7 % (32.0-36.0); MCV 81 fL (80-95); MPV 11.4 fL (8.0-11.0); Monocytes % 4.4; Neutrophils % 79.7; Platelet Count 150 10^3/uL (130-400); RBC 4.27 10^6/uL (4.36-5.78); RDW-SD 38.4 fL
[2023-04-02 16:03] LABS: ALT 26 U/L (16-63); AST 14 U/L (15-37); Alkaline Phosphatase 83 U/L (46-116); Anion Gap 5.3 mmol/L (3-11); BUN 10 mg/dL (7-18); Bilirubin, Total 0.6 mg/dL (0.2-1.0); CO2 29.7 mmol/L (21.0-32.0); Calcium 9.8 mg/dL (8.5-10.1); Chloride 99 mmol/L (98-107); Estimated GFR 89.44 (mL/min/1.73m2); Glucose 262 mg/dL (74-106); Lipase < 10 U/L (16-77); Potassium 3.9 mmol/L (3.5-5.1); Sodium 134 mmol/L (136-145); Total Protein 7.7 g/dL (6.4-8.2)
[2023-04-02] MEDS: Normal Saline - Diluent 50 ML VIAL IJ (16:20)
[2023-04-02] MEDS: Omnipaque 350 MG/ML 100 ML BTL IJ (16:21)
[2023-04-02] MEDS: Normal Saline Flush 10 ML SYR IVP (16:22)
== END 2023-04-02 20:31 | disposition home or self-care (01) ==
PROVIDERS: Emergency Provider Emergency Medicine; PCP Family Medicine
DX: R11.2 Nausea with vomiting, unspecified (principal); R19.7 Diarrhea, unspecified; R10.9 Unspecified abdominal pain; E11.9 Type 2 diabetes mellitus without complications; C25.9 Malignant neoplasm of pancreas, unspecified; Z92.21 Personal history of antineoplastic chemotherapy; Z79.4 Long term (current) use of insulin; Z87.891 Personal history of nicotine dependence
CPT/HCPCS: 80053; 83690; 96361; 96374; 96375; 96376; 99285; 74177; 85025; 99284; J2270; J2405; J3490; J8498

== ENCOUNTER 2023-04-12 01:21 | Outpatient (RCR) | payer BC, SELFPAY ==
[2023-03-18 00:23] VITALS: BP 123/81; PULSE 80; RESP 16; TEMP 36.2
[2023-03-20 09:01] LABS: Abs Immature Grans 0.02 10^3/uL (0.0-0.06); Absolute Basophil Count 0.01 10^3/uL (0.0-0.2); Absolute Eosinophil Count 0.18 10^3/uL (0.0-0.7); Absolute Lymphocyte Count 0.84 10^3/uL (1.2-3.4); Absolute Monocyte Count 0.67 10^3/uL (0.1-0.8); Absolute Neutrophil Count 3.49 10^3/uL (1.2-6.7); Basophils % 0.2; Eosinophils % 3.5; HCT 31.5 % (40.0-50.0); HGB 10.7 g/dL (13.5-17.5); Immature Grans % 0.4; Lymphocytes % 16.1; MCH 28.8 pg (27.0-33.0); MCV 85 fL (80-95); MPV 11.9 fL (8.0-11.0); Monocytes % 12.9; Neutrophils % 66.9; Platelet Count 130 10^3/uL (130-400); RBC 3.71 10^6/uL (4.36-5.78); RDW 12.6 % (11.8-14.1); RDW-SD 38.4 fL; WBC 5.21 10^3/uL (4.4-10.8)
[2023-03-20] MEDS: Normal Saline Flush 10 ML SYR IVP (09:13)
[2023-03-20 09:17] LABS: ALT 22 U/L (16-63); AST 9 U/L (15-37); Albumin 3.1 g/dL (3.4-5.0); Alkaline Phosphatase 110 U/L (46-116); Anion Gap 10.2 mmol/L (3-11); BUN 11 mg/dL (7-18); Bilirubin, Total 0.5 mg/dL (0.2-1.0); CO2 26.8 mmol/L (21.0-32.0); CREATININE 1.1 mg/dL (0.70-1.30); Calcium 8.8 mg/dL (8.5-10.1); Chloride 98 mmol/L (98-107); Estimated GFR 79.77 (mL/min/1.73m2); Glucose 479 mg/dL (74-106); Potassium 3.6 mmol/L (3.5-5.1); Sodium 135 mmol/L (136-145); Total Protein 7.3 g/dL (6.4-8.2)
[2023-03-23 13:23] LABS: CA 19-9 684 U/mL (<35)
[2023-03-27 08:32] LABS: Absolute Eosinophil Count 0.07 10^3/uL (0.0-0.7); Absolute Lymphocyte Count 0.99 10^3/uL (1.2-3.4); Absolute Monocyte Count 1.28 10^3/uL (0.1-0.8); Basophils % 0.3; Eosinophils % 0.6; HCT 34.1 % (40.0-50.0); HGB 11.4 g/dL (13.5-17.5); Immature Grans % 1.7; Lymphocytes % 8.3; MCH 28.2 pg (27.0-33.0); MCHC 33.4 % (32.0-36.0); MCV 84 fL (80-95); MPV 11.6 fL (8.0-11.0); Monocytes % 10.7; Neutrophils % 78.4; Platelet Count 151 10^3/uL (130-400); RBC 4.04 10^6/uL (4.36-5.78); RDW 13.1 % (11.8-14.1); WBC 11.98 10^3/uL (4.4-10.8)
[2023-03-27 08:37] LABS: Absolute Basophil Count 0.04 10^3/uL (0.0-0.2); Absolute Neutrophil Count 9.39 10^3/uL (1.2-6.7)
[2023-03-27 08:54] LABS: ALT 23 U/L (16-63); AST 18 U/L (15-37); Alkaline Phosphatase 97 U/L (46-116); Anion Gap 12.9 mmol/L (3-11); BUN 14 mg/dL (7-18); Bilirubin, Total 0.9 mg/dL (0.2-1.0); CO2 24.1 mmol/L (21.0-32.0); Calcium 8.9 mg/dL (8.5-10.1); Chloride 99 mmol/L (98-107); Estimated GFR 89.44 (mL/min/1.73m2); Glucose 145 mg/dL (74-106); Potassium 3.3 mmol/L (3.5-5.1); Sodium 136 mmol/L (136-145)
[2023-03-27] MEDS: Normal Saline Flush 10 ML SYR IVP (09:18)
[2023-03-29] MEDS: Heparin 500 UNITS/5 ML SYRINGE IV (13:37)
[2023-03-29] MEDS: Normal Saline Flush 10 ML SYR IVP (13:38)
[2023-03-30 09:35] LABS: CA 19-9 205 U/mL (<35)
[2023-04-10] MEDS: Normal Saline Flush 10 ML SYR IVP (08:17)
[2023-04-10 08:28] LABS: Abs Immature Grans 0.04 10^3/uL (0.0-0.06); Absolute Basophil Count 0.01 10^3/uL (0.0-0.2); Absolute Eosinophil Count 0.11 10^3/uL (0.0-0.7); Absolute Lymphocyte Count 0.83 10^3/uL (1.2-3.4); Absolute Monocyte Count 0.76 10^3/uL (0.1-0.8); Absolute Neutrophil Count 5.21 10^3/uL (1.2-6.7); Basophils % 0.1; Eosinophils % 1.6; HCT 32.3 % (40.0-50.0); HGB 10.5 g/dL (13.5-17.5); Immature Grans % 0.6; Lymphocytes % 11.9; MCH 27.5 pg (27.0-33.0); MCHC 32.5 % (32.0-36.0); MCV 85 fL (80-95); MPV 11.1 fL (8.0-11.0); Monocytes % 10.9; Neutrophils % 74.9; Platelet Count 154 10^3/uL (130-400); RBC 3.82 10^6/uL (4.36-5.78); RDW 13.6 % (11.8-14.1); RDW-SD 41.8 fL; WBC 6.96 10^3/uL (4.4-10.8)
[2023-04-10 08:48] LABS: ALT 18 U/L (16-63); AST 12 U/L (15-37); Albumin 2.6 g/dL (3.4-5.0); Alkaline Phosphatase 86 U/L (46-116); Anion Gap 7.4 mmol/L (3-11); BUN 6 mg/dL (7-18); Bilirubin, Total 0.8 mg/dL (0.2-1.0); CO2 27.6 mmol/L (21.0-32.0); Calcium 8.8 mg/dL (8.5-10.1); Chloride 101 mmol/L (98-107); Estimated GFR 89.44 (mL/min/1.73m2); Glucose 208 mg/dL (74-106); Potassium 3.2 mmol/L (3.5-5.1); Sodium 136 mmol/L (136-145)
[2023-04-12 13:30] VITALS: BP 149/80; PULSE 91; TEMP 36.6; O2SAT 99
[2023-04-12] MEDS: Normal Saline Flush 10 ML SYR IVP (13:33)
[2023-04-12] MEDS: Heparin 500 UNITS/5 ML SYRINGE IV (13:33)
[2023-04-13 13:39] LABS: CA 19-9 84 U/mL (<35)
== END 2023-04-16 23:59 | disposition home or self-care (01) ==
LOC: INF 01:21
PROVIDERS: PCP Family Medicine; Visit Provider Internal Medicine Hematology & Oncology
DX: C25.0 Malignant neoplasm of head of pancreas (principal); Z45.2 Encounter for adjustment and management of vascular access device
CPT/HCPCS: 36591; 80053; 96523; 85025; 86301

== ENCOUNTER 2023-05-08 01:38 | Outpatient (RCR) | payer BC, SELFPAY ==
[2023-04-17 00:25] VITALS: BP 123/81; PULSE 80; RESP 16; TEMP 36.2
[2023-04-22] MEDS: Normal Saline Flush 10 ML SYR IVP (07:51)
[2023-04-22 08:03] LABS: Abs Immature Grans 0.07 10^3/uL (0.0-0.06); Absolute Basophil Count 0.02 10^3/uL (0.0-0.2); Absolute Eosinophil Count 0.04 10^3/uL (0.0-0.7); Absolute Lymphocyte Count 0.73 10^3/uL (1.2-3.4); Absolute Monocyte Count 1.03 10^3/uL (0.1-0.8); Absolute Neutrophil Count 7.05 10^3/uL (1.2-6.7); Basophils % 0.2; Eosinophils % 0.4; HCT 29.9 % (40.0-50.0); HGB 9.7 g/dL (13.5-17.5); Immature Grans % 0.8; Lymphocytes % 8.2; MCH 26.2 pg (27.0-33.0); MCHC 32.4 % (32.0-36.0); MCV 81 fL (80-95); Monocytes % 11.5; Neutrophils % 78.9; Platelet Count 178 10^3/uL (130-400); RDW 14.4 % (11.8-14.1); RDW-SD 42.2 fL; WBC 8.94 10^3/uL (4.4-10.8)
[2023-04-22 08:24] LABS: ALT 20 U/L (16-63); AST 18 U/L (15-37); Albumin 2.5 g/dL (3.4-5.0); Alkaline Phosphatase 89 U/L (46-116); Anion Gap 10.1 mmol/L (3-11); BUN 9 mg/dL (7-18); CO2 27.9 mmol/L (21.0-32.0); CREATININE 1.1 mg/dL (0.70-1.30); Calcium 8.8 mg/dL (8.5-10.1); Chloride 95 mmol/L (98-107); Estimated GFR 79.77 (mL/min/1.73m2); Glucose 256 mg/dL (74-106); Sodium 133 mmol/L (136-145); Total Protein 8.1 g/dL (6.4-8.2)
[2023-04-23 00:34] LABS: CA 19-9 125 U/mL (<35)
== END 2023-05-17 23:59 | disposition home or self-care (01) ==
LOC: INF 01:38
PROVIDERS: PCP Family Medicine; Visit Provider Internal Medicine Hematology & Oncology
DX: C25.0 Malignant neoplasm of head of pancreas (principal); Z45.2 Encounter for adjustment and management of vascular access device
CPT/HCPCS: 36591; 80053; 85025; 86301

== ENCOUNTER 2023-05-08 08:49 | Outpatient (CLI) | payer BC, SELFPAY ==
[2023-05-08 07:56] LABS: Abs Immature Grans 0.05 10^3/uL (0.0-0.06); Absolute Basophil Count 0.02 10^3/uL (0.0-0.2); Absolute Eosinophil Count 0.06 10^3/uL (0.0-0.7); Absolute Lymphocyte Count 1.06 10^3/uL (1.2-3.4); Absolute Neutrophil Count 4.97 10^3/uL (1.2-6.7); Basophils % 0.3; Eosinophils % 0.9; HCT 32.3 % (40.0-50.0); HGB 9.9 g/dL (13.5-17.5); Immature Grans % 0.8; Lymphocytes % 16.4; MCH 25.7 pg (27.0-33.0); MCHC 30.7 % (32.0-36.0); MCV 84 fL (80-95); MPV 9.9 fL (8.0-11.0); Monocytes % 4.6; Platelet Count 229 10^3/uL (130-400); RBC 3.85 10^6/uL (4.36-5.78); RDW 18.3 % (11.8-14.1); RDW-SD 55.6 fL; WBC 6.46 10^3/uL (4.4-10.8)
[2023-05-08 08:17] LABS: ALT 19 U/L (16-63); AST 12 U/L (15-37); Albumin 2.4 g/dL (3.4-5.0); Alkaline Phosphatase 84 U/L (46-116); Anion Gap 6.7 mmol/L (3-11); BUN 12 mg/dL (7-18); Bilirubin, Total 0.3 mg/dL (0.2-1.0); CO2 29.3 mmol/L (21.0-32.0); CREATININE 0.9 mg/dL (0.70-1.30); Calcium 8.9 mg/dL (8.5-10.1); Chloride 100 mmol/L (98-107); Estimated GFR 101.49 (mL/min/1.73m2); Glucose 194 mg/dL (74-106); Potassium 3.9 mmol/L (3.5-5.1); Sodium 136 mmol/L (136-145); Total Protein 8.9 g/dL (6.4-8.2)
[2023-05-08 21:02] LABS: CA 19-9 183 U/mL (<35)
== END 2023-05-08 08:50 | disposition home or self-care (01) ==
LOC: LBO 08:50
PROVIDERS: PCP Family Medicine; Visit Provider Internal Medicine Hematology & Oncology
DX: C25.0 Malignant neoplasm of head of pancreas (principal)
CPT/HCPCS: 36415; 80053; 85025; 86301

== ENCOUNTER 2023-06-04 15:23 | Emergency (ER) | payer BC, SELFPAY ==
--- NOTE | 2023-06-04 15:30 | DI.RAD_ITS ---
Exam(s) XR ABDOMEN FLAT PLATE EXAM: 2D digital imaging was performed. CLINICAL HISTORY: eval drain. COMPARISON: No exams were available for comparison TECHNIQUE: Supine views of the abdomen performed. FINDINGS: BOWEL GAS PATTERN: Nondistended. Large quantity of fecal material. No gastric or small bowel diste nsion. CALCIFICATIONS: No radiopaque calcifications. OSSEOUS STRUCTURES: Normal for age. OTHER FINDINGS: Tips. Lung bases are clear. Heart size normal. Degenerative changes in the spine. IMPRESSION: 1. Nonobstructive bowel gas pattern. Findings consistent with constipation. 2. No radiopaque calculi. DATA REPOSITORY: RADIATION DOSE DELIVERED:
[2023-06-04 15:37] VITALS: BP 190/114; PULSE 91; RESP 19; O2SAT 100
--- NOTE | 2023-06-04 16:12 | W.ED.GENAD ---
HPI General Date/Time Provider Initiated Documentation: 06/04/23 15:24. Limitations to Documentation: no limitations. Information obtained by: patient, family and RN/MD. HPI Narrative: 52-year-old gentleman with past medical history of hypertension, diabetes, pancreatic cancer and recent hepatic abscess presents for evaluation after dislodgment of his biliary drain. The tube came out today while he was doing some housework. They noted that there has not been any output from the tube in the last 2 days. Denies any fever or abdominal pain. Has been compliant with his antibiotics. He follows with [facility] oncology and has an appointment tomorrow for lab work. Related Data Home Medications Medication Instructions Recorded Confirmed albuterol sulfate 90 mcg/actuation 2 puff inhalation Q6H PRN 03/27/22 06/04/23 aerosol inhaler insulin glargine 100 unit/mL (3 10 unit subcut QPM 03/27/22 06/04/23 mL) subcutaneous pen (Lantus Solostar U-100 Insulin) metformin 500 mg tablet 500 mg PO BID 03/27/22 06/04/23 prochlorperazine 25 mg rectal 25 mg [place] BID PRN nausea and 04/02/23 06/04/23 suppository (Compazine) vomiting #12 ea amoxicillin 500 mg-potassium 2 tab PO TID 06/04/23 06/04/23 clavulanate 125 mg tablet empagliflozin 10 mg tablet 10 mg PO ONCE 06/04/23 06/04/23 (Jardiance) morphine 15 mg tablet,extended mg PO Q12H 06/04/23 release oxycodone 10 mg tablet 10 mg PO Q4H PRN 06/04/23 06/04/23 Previous Rx's Medication Instructions Recorded prochlorperazine 25 mg rectal 25 mg [place] BID PRN nausea and 04/02/23 suppository (Compazine) vomiting #12 ea Allergies Allergy/AdvReac Type Severity Reaction Status Date / Time diphenhydramine Allergy Anaphylaxis Unverified 06/04/23 15:31 General Stated Complaint: Abd Prob SHANNON: 2 Exam Narrative Exam Narrative: Review of Systems: All systems reviewed & are unremarkable except as noted in HPI and below Well-developed, no acute distress, chronically ill-appearing NACT PERRL, normal conjunctiva RRR Unlabored respiratory effort, port in right chest wall Nondistended abdomen, no significant tenderness Biliary drain with empty drain bag, tube appears intact and has been completely dislodged Extremities w/o deformity, no cyanosis, no edema No rashes or lesions. no focal neurologic deficits Appropriate mood and affect Course Vital Signs Vital signs: Vital Signs Pulse 91 H 06/04/23 15:37 Respiratory Rate 19 06/04/23 15:37 Blood Pressure 190/114 H 06/04/23 15:37 Pulse Oximetry 100 06/04/23 15:37 Pulse 91 H 06/04/23 15:37 Respiratory Rate 19 06/04/23 15:37 Blood Pressure 190/114 H 06/04/23 15:37 Blood Pressure Position Sitting 06/04/23 15:37 Pulse Oximetry 100 06/04/23 15:37 Oxygen Delivery Method Room Air 06/04/23 15:37 Oxygen Flow Rate 0 06/04/23 15:37 Pain Level 8 06/04/23 15:37 Medical Decision Making Emergent evaluation of biliary drain displacement. The patient and family are concerned that there is likely tube still inside of him however the tube tip appears intact. An x-ray was obtained and there does not appear to be any retained material. I discussed with interventional radiology at [facility] with the tube was placed in April for hepatic abscess. They report that the abscess had been improving since that time and that if he has not had any drain output that he may not need tube replacement. I also discussed the patient with the oncologist at [facility] who concurs no additional emergent workup is needed at this time and that the patient can follow-up with his regularly scheduled tomorrow. Return precautions advised. Medical Records Medical records reviewed: Yes I reviewed the patient's medical records. Quality:SDOH Health Related Social Needs: No Data to Display PFSH All Active Problems Biliary drain displacement (Acute) Abnormal weight loss (Acute) Asthma (Chronic) Hypertension (Chronic) Diabetes (Chronic) Screening for colon cancer (Acute) Abrasion, corneal (Acute) Eye foreign body (Acute) Social History Smoking/Tobacco Use Status: Former Tobacco Use Smoking risk assessment performed?: Yes Alcohol Intake: current Alcohol Intake frequency: a few times a month Drug use: Never Substance use type: does not use Housing: house Do you feel safe at home: Yes Do you feel safe in your relationship?: Yes Discharge Plan Disposition Patient Disposition: Home Discharge Details Clinical Impression: Biliary drain displacement Primary Care Provider: Zohaib Camargo ED Provider: Little Turner Home Meds and New Rx's Prescriptions: No Action albuterol sulfate 90 mcg/actuation HFA aerosol inhaler 2 puff inhalation Q6H PRN metformin 500 mg tablet 500 mg PO BID insulin glargine [Lantus Solostar U-100 Insulin] 100 unit/mL (3 mL) insulin pen 10 unit subcut QPM prochlorperazine [Compazine] 25 mg suppository 25 mg [place] BID PRN (Reason: nausea and vomiting) Qty: 12 0RF morphine 15 mg tablet extended release PO Q12H Patient Comments: TAKE ONE TABLET BY MOUTH TWICE A DAY oxycodone 10 mg tablet 10 mg PO Q4H PRN Patient Comments: TAKE 1-2 TABLETS BY MOUTH EVERY 4 HOURS NEEDED FOR PAIN Jardiance 10 mg tablet 10 mg PO ONCE Patient Comments: TAKE ONE TABLET BY MOUTH EVERY DAY amoxicillin-pot clavulanate 500-125 mg tablet 2 tab PO TID Patient Comments: TAKE TWO TABLETS BY MOUTH THREE TIMES A DAY Discharge Instructions Additional Instructions: please follow up with oncology as scheduled tomorrow Discharge Data Discharge Date/Time-TO BE ENTERED AT DEPARTURE: 06/04/23 17:47
[2023-06-04] MEDS: Simethicone/Sod Bicarb/Cit Ac, 4 gram PACKET 1 PACKET PO (16:28)
[2023-06-04 17:45] VITALS: BP 189/120; PULSE 88; RESP 20; O2SAT 97
--- NOTE | 2023-06-05 13:21 | NUR.NOTE ---
Accessed pt chart to determine EKG orders. EKG order cancelled due to no EKG. Nursing Note:
== END 2023-06-04 17:47 | disposition home or self-care (01) ==
PROVIDERS: Emergency Provider Emergency Medicine; PCP Family Medicine
DX: T85.520A Displacement of bile duct prosthesis, initial encounter (principal); C25.9 Malignant neoplasm of pancreas, unspecified; I10 Essential (primary) hypertension; E11.9 Type 2 diabetes mellitus without complications; Z79.4 Long term (current) use of insulin; Z92.21 Personal history of antineoplastic chemotherapy; Z87.891 Personal history of nicotine dependence
CPT/HCPCS: 99283; 74018

== ENCOUNTER 2023-06-07 00:01 | Outpatient (RCR) | payer BC, SELFPAY ==
[2023-05-18 00:10] VITALS: BP 123/81; PULSE 80; RESP 16; TEMP 36.2
[2023-05-22] MEDS: Normal Saline Flush 10 ML SYR IVP (08:03)
[2023-05-22 08:29] LABS: Abs Immature Grans 0.05 10^3/uL (0.0-0.06); Absolute Basophil Count 0.02 10^3/uL (0.0-0.2); Absolute Eosinophil Count 0.41 10^3/uL (0.0-0.7); Absolute Lymphocyte Count 0.88 10^3/uL (1.2-3.4); Absolute Monocyte Count 0.38 10^3/uL (0.1-0.8); Absolute Neutrophil Count 4.41 10^3/uL (1.2-6.7); Basophils % 0.3; Eosinophils % 6.7; HCT 33.2 % (40.0-50.0); HGB 10.1 g/dL (13.5-17.5); Immature Grans % 0.8; Lymphocytes % 14.3; MCH 25.6 pg (27.0-33.0); MCHC 30.4 % (32.0-36.0); MCV 84 fL (80-95); MPV 10.5 fL (8.0-11.0); Monocytes % 6.2; Neutrophils % 71.7; Platelet Count 142 10^3/uL (130-400); RBC 3.94 10^6/uL (4.36-5.78); RDW 18.9 % (11.8-14.1); RDW-SD 58.5 fL; WBC 6.15 10^3/uL (4.4-10.8)
[2023-05-22 08:44] LABS: ALT 18 U/L (16-63); AST 12 U/L (15-37); Alkaline Phosphatase 86 U/L (46-116); Anion Gap 8.6 mmol/L (3-11); BUN 9 mg/dL (7-18); Bilirubin, Total 0.4 mg/dL (0.2-1.0); CO2 28.4 mmol/L (21.0-32.0); Calcium 8.7 mg/dL (8.5-10.1); Chloride 102 mmol/L (98-107); Estimated GFR 89.44 (mL/min/1.73m2); Glucose 228 mg/dL (74-106); Potassium 3.3 mmol/L (3.5-5.1); Sodium 139 mmol/L (136-145); Total Protein 8.7 g/dL (6.4-8.2)
[2023-05-25 11:44] LABS: CA 19-9 185 U/mL (<35)
[2023-06-05] MEDS: Normal Saline Flush 10 ML SYR IVP (07:40)
[2023-06-05 07:53] LABS: Abs Immature Grans 0.02 10^3/uL (0.0-0.06); Absolute Basophil Count 0.02 10^3/uL (0.0-0.2); Absolute Eosinophil Count 0.24 10^3/uL (0.0-0.7); Absolute Monocyte Count 0.42 10^3/uL (0.1-0.8); Basophils % 0.3; Eosinophils % 4.1; HCT 33.3 % (40.0-50.0); HGB 10.2 g/dL (13.5-17.5); Immature Grans % 0.3; Lymphocytes % 13.6; MCH 25.4 pg (27.0-33.0); MCHC 30.6 % (32.0-36.0); MCV 83 fL (80-95); MPV 10.4 fL (8.0-11.0); Monocytes % 7.1; Neutrophils % 74.6; Platelet Count 119 10^3/uL (130-400); RBC 4.02 10^6/uL (4.36-5.78); RDW 17.6 % (11.8-14.1); RDW-SD 53.2 fL
[2023-06-05 08:06] LABS: ALT 13 U/L (16-63); AST 12 U/L (15-37); Albumin 3.1 g/dL (3.4-5.0); Alkaline Phosphatase 93 U/L (46-116); Anion Gap 7.6 mmol/L (3-11); BUN 14 mg/dL (7-18); Bilirubin, Total 0.4 mg/dL (0.2-1.0); CO2 28.4 mmol/L (21.0-32.0); Calcium 8.9 mg/dL (8.5-10.1); Chloride 101 mmol/L (98-107); Estimated GFR 89.44 (mL/min/1.73m2); Glucose 214 mg/dL (74-106); Potassium 3.7 mmol/L (3.5-5.1); Sodium 137 mmol/L (136-145); Total Protein 8.6 g/dL (6.4-8.2)
[2023-06-07] MEDS: Normal Saline Flush 10 ML SYR IVP (12:26)
[2023-06-08 11:45] LABS: CA 19-9 176 U/mL (<35)
== END 2023-06-17 23:59 | disposition home or self-care (01) ==
LOC: INF 00:01
PROVIDERS: PCP Family Medicine; Visit Provider Internal Medicine Hematology & Oncology
DX: C25.0 Malignant neoplasm of head of pancreas (principal); Z45.2 Encounter for adjustment and management of vascular access device
CPT/HCPCS: 36591; 80053; 96523; 85025; 86301

== ENCOUNTER 2023-07-05 00:29 | Outpatient (RCR) | payer BC, SELFPAY ==
[2023-06-18 00:06] VITALS: BP 123/81; PULSE 80; RESP 16; TEMP 36.2
[2023-06-19] MEDS: Normal Saline Flush 10 ML SYR IVP (07:20)
[2023-06-19 07:31] LABS: Abs Immature Grans 0.02 10^3/uL (0.0-0.06); Absolute Basophil Count 0.01 10^3/uL (0.0-0.2); Absolute Lymphocyte Count 0.64 10^3/uL (1.2-3.4); Absolute Monocyte Count 0.43 10^3/uL (0.1-0.8); Absolute Neutrophil Count 4.08 10^3/uL (1.2-6.7); Basophils % 0.2; Eosinophils % 1.9; HCT 31.5 % (40.0-50.0); HGB 9.9 g/dL (13.5-17.5); Immature Grans % 0.4; Lymphocytes % 12.1; MCH 24.9 pg (27.0-33.0); MCHC 31.4 % (32.0-36.0); MCV 79 fL (80-95); MPV 10.2 fL (8.0-11.0); Monocytes % 8.1; Neutrophils % 77.3; Platelet Count 104 10^3/uL (130-400); RBC 3.98 10^6/uL (4.36-5.78); RDW 17.1 % (11.8-14.1); RDW-SD 49.2 fL; WBC 5.28 10^3/uL (4.4-10.8)
[2023-06-19 07:48] LABS: ALT 18 U/L (16-63); AST 12 U/L (15-37); Alkaline Phosphatase 88 U/L (46-116); Anion Gap 9.1 mmol/L (3-11); BUN 10 mg/dL (7-18); Bilirubin, Total 0.5 mg/dL (0.2-1.0); CO2 27.9 mmol/L (21.0-32.0); CREATININE 0.8 mg/dL (0.70-1.30); Calcium 8.8 mg/dL (8.5-10.1); Chloride 102 mmol/L (98-107); Estimated GFR 105.17 (mL/min/1.73m2); Glucose 173 mg/dL (74-106); Potassium 3.4 mmol/L (3.5-5.1); Sodium 139 mmol/L (136-145); Total Protein 7.9 g/dL (6.4-8.2)
[2023-06-21 11:41] VITALS: BP 136/96; PULSE 85; RESP 18; TEMP 36; O2SAT 100
[2023-06-21] MEDS: Normal Saline Flush 10 ML SYR IVP (11:43)
[2023-06-22 09:57] LABS: CA 19-9 227 U/mL (<35)
[2023-07-03 08:21] LABS: Abs Immature Grans 0.01 10^3/uL (0.0-0.06); Absolute Eosinophil Count 0.07 10^3/uL (0.0-0.7); Absolute Lymphocyte Count 0.43 10^3/uL (1.2-3.4); Absolute Monocyte Count 0.22 10^3/uL (0.1-0.8); HCT 32.8 % (40.0-50.0); HGB 10.2 g/dL (13.5-17.5); Immature Grans % 0.3; Lymphocytes % 12.5; MCH 24.5 pg (27.0-33.0); MCHC 31.1 % (32.0-36.0); MCV 79 fL (80-95); Monocytes % 6.4; Neutrophils % 78.8; RBC 4.16 10^6/uL (4.36-5.78); RDW 16.9 % (11.8-14.1); RDW-SD 48.1 fL; WBC 3.43 10^3/uL (4.4-10.8)
[2023-07-03 08:37] LABS: ALT 18 U/L (16-63); AST 14 U/L (15-37); Albumin 3.2 g/dL (3.4-5.0); Alkaline Phosphatase 94 U/L (46-116); Anion Gap 10.1 mmol/L (3-11); BUN 9 mg/dL (7-18); Bilirubin, Total 0.3 mg/dL (0.2-1.0); CO2 27.9 mmol/L (21.0-32.0); CREATININE 0.9 mg/dL (0.70-1.30); Calcium 8.6 mg/dL (8.5-10.1); Chloride 102 mmol/L (98-107); Estimated GFR 101.49 (mL/min/1.73m2); Glucose 309 mg/dL (74-106); Sodium 140 mmol/L (136-145); Total Protein 7.9 g/dL (6.4-8.2)
[2023-07-03 08:38] LABS: Diff Comment Diff Reviewed; Platelet Count 81 10^3/uL (130-400); RBC Morphology Normal
[2023-07-03] MEDS: Normal Saline Flush 10 ML SYR IVP (08:56)
[2023-07-03 21:53] LABS: CA 19-9 257 U/mL (<35)
[2023-07-05] MEDS: Normal Saline Flush 10 ML SYR IVP (13:23)
== END 2023-07-16 23:59 | disposition home or self-care (01) ==
LOC: INF 00:29
PROVIDERS: PCP Family Medicine; Visit Provider Internal Medicine Hematology & Oncology
DX: C25.0 Malignant neoplasm of head of pancreas (principal); Z45.2 Encounter for adjustment and management of vascular access device
CPT/HCPCS: 36591; 80053; 96523; 85025; 86301

== ENCOUNTER 2023-07-31 17:18 | Emergency (ER) | payer BC, SELFPAY ==
[2023-07-31] VITALS (82 sets, daily range): BP systolic 84–133; BP diastolic 48–82; PULSE 65–139; RESP 9–22; TEMP 38–40.4; O2SAT 93–100
--- NOTE | 2023-07-31 17:15 | RT.EKG_ITS ---
APPROVED REPORT Exam: Resting ECG Reason for Exam: Passing out Patient Location: E HR:139 bpm ECG Measurements Heart Rate 139 AXIS IL 143 P 86 QRSd 78 QRS -87 QT 278 T 67 QTc 423 Conclusion Sinus tachycardia...rate> 99 Left anterior fascicular block...axis(240,-40), init forces inf sinus tachycardia, left axis
--- NOTE | 2023-07-31 17:15 | DI.RAD_ITS ---
Exam(s) XR CHEST 2V PA LATERAL EXAM: XR CHEST 2V PA LATERAL CLINICAL HISTORY: ams fever, hx of pancreatic ca. TECHNIQUE: 2D digital imaging was performed. COMPARISON: No exams were available for comparison FINDINGS: 2 views: Distal tip of the right-sided Port-A-Cath is at the SVC-RA junction. Heart size is normal. The mediastinum is not widened. No obvious infiltrates nor pleural effusions. No pulmonary edema. No pneumothorax. IMPRESSION: No acute pulmonary findings. DATA REPOSITORY: RADIATION DOSE DELIVERED:
--- NOTE | 2023-07-31 17:15 | DI.CT_ITS ---
Exam(s) CT HEAD WO EXAM: CT HEAD WO CLINICAL HISTORY: fever ams, hx pancreatic ca. TECHNIQUE: Imaging Protocol: Axial computed tomography images with coronal and sagittal reformatted images were created and reviewed COMPARISON: CR XR CHEST 2V PA LATERAL from 07/31/2023 FINDINGS: There are no skull fractures. There is no fluid in the visualized paranasal sinuses. There is no evidence of intracranial hemorrhage, mass effect, or shift of midline structures. There are no extra-axial fluid collections. The ventricles are not enlarged or shifted and there is no blo od within the ventricular system nor within the basal cisterns. IMPRESSION: No acute intracranial findings on this noninfused CT scan of the brain. Called by myself to ER physician. RADIATION DOSE DELIVERED: Total DLP DATA REPOSITORY: All CT scans at this facility are submitted to the National Radiology Data Registry (NRDR) Dose Index Registry (DIR) with the [employer] (ACR). RADIATION OPTIMIZATION: All CT scans at this facility use at least one of these dose optimization te chniques: automated exposure control; mA and/or kV adjustment per patient size (includes targeted exa ms where dose is matched to clinical indication); or iterative reconstruction.
[2023-07-31 17:41] LABS: BE (Venous) 8 mmol/L (-2-3); HCO3 (Venous) 31 mmol/L (23-28); O2 Sat (Venous) 69 %; TCO2 (Venous) 29 mmol/L (24-29); pCO2 (Venous) 42 mmHg (41-51); pH (Venous) 7.48 (7.31-7.41); pO2 (Venous) 34 mmHg
[2023-07-31] MEDS: Normal Saline 1,000 ML 1000 ML IV ×2 (17:43→18:37)
[2023-07-31] MEDS: ACETAMINOPHEN 1,000 MG/100 ML BTL 400 MG IVPB (17:44)
[2023-07-31 17:47] LABS: Abs Immature Grans 0.04 10^3/uL (0.0-0.06); Absolute Basophil Count 0.01 10^3/uL (0.0-0.2); Absolute Eosinophil Count 0.01 10^3/uL (0.0-0.7); Absolute Lymphocyte Count 0.11 10^3/uL (1.2-3.4); Absolute Monocyte Count 0.15 10^3/uL (0.1-0.8); Absolute Neutrophil Count 2.47 10^3/uL (1.2-6.7); Basophils % 0.4; Eosinophils % 0.4; HCT 31.4 % (40.0-50.0); HGB 9.8 g/dL (13.5-17.5); Immature Grans % 1.4; Lymphocytes % 3.9; MCH 24.3 pg (27.0-33.0); MCHC 31.2 % (32.0-36.0); MCV 78 fL (80-95); Monocytes % 5.4; Neutrophils % 88.5; Platelet Count 103 10^3/uL (130-400); RBC 4.04 10^6/uL (4.36-5.78); RDW-SD 50.2 fL; WBC 2.79 10^3/uL (4.4-10.8)
--- NOTE | 2023-07-31 17:55 | W.ED.GENAD ---
Discharge Plan Disposition Patient Disposition: Transfer-Acute Inpatient Care Specific Acute Inpt Facility: [facility] Condition: Serious Discharge Details Chief Complaint: Dizzy/Sync Clinical Impression: Septic shock, Ascending cholangitis Primary Care Provider: Zohaib Camargo ED Provider: Rodri Rodgers Home Meds and New Rx's Prescriptions: No Action albuterol sulfate 90 mcg/actuation HFA aerosol inhaler 2 puff inhalation Q6H PRN metformin 500 mg tablet 500 mg PO BID insulin glargine [Lantus Solostar U-100 Insulin] 100 unit/mL (3 mL) insulin pen 10 unit subcut QPM Hold Instructions: pts girlfriend states doesnt take at this time. prochlorperazine [Compazine] 25 mg suppository 25 mg [place] BID PRN (Reason: nausea and vomiting) Qty: 12 0RF morphine 15 mg tablet extended release 15 mg PO Q12H Patient Comments: TAKE ONE TABLET BY MOUTH TWICE A DAY oxycodone 10 mg tablet 10 mg PO Q4H PRN Patient Comments: TAKE 1-2 TABLETS BY MOUTH EVERY 4 HOURS NEEDED FOR PAIN Jardiance 10 mg tablet 10 mg PO ONCE Patient Comments: TAKE ONE TABLET BY MOUTH EVERY DAY amoxicillin-pot clavulanate 500-125 mg tablet 2 tab PO BID Patient Comments: TAKE TWO TABLETS BY MOUTH THREE TIMES A DAY sennosides [senna] 8.6 mg tablet 8.6 mg PO DAILY Patient Comments: TAKE ONE TABLET BY MOUTH TWICE A DAY Creon 24,000-76,000 -120,000 unit capsule,delayed release(DR/EC) 4 cap PO .COMPLEX Patient Comments: TAKE FOUR CAPSULES BY MOUTH PER MEAL AND 2-3 PER SNACK (15 PER DAY) Rx Instructions: 4 caps orally with meals; potassium chloride 20 mEq tablet,ER particles/crystals 20 meq PO BID Patient Comments: TAKE ONE TABLET BY MOUTH TWICE A DAY HPI General Date/Time Provider Initiated Documentation: 07/31/23 17:28. HPI Narrative: 52-year-old male history of pancreatic cancer, diabetes, recently returned from [place], brought in by friend for altered mental status, less responsive acting more agitated felt warm to the touch. Related Data Home Medications Medication Instructions Recorded Confirmed albuterol sulfate 90 mcg/actuation 2 puff inhalation Q6H PRN 03/27/22 07/31/23 aerosol inhaler insulin glargine 100 unit/mL (3 10 unit subcut QPM 03/27/22 07/31/23 mL) subcutaneous pen (Lantus Solostar U-100 Insulin) metformin 500 mg tablet 500 mg PO BID 03/27/22 07/31/23 prochlorperazine 25 mg rectal 25 mg [place] BID PRN nausea and 04/02/23 07/31/23 suppository (Compazine) vomiting #12 ea amoxicillin 500 mg-potassium 2 tab PO BID 06/04/23 07/31/23 clavulanate 125 mg tablet empagliflozin 10 mg tablet 10 mg PO ONCE 06/04/23 07/31/23 (Jardiance) morphine 15 mg tablet,extended 15 mg PO Q12H 06/04/23 07/31/23 release oxycodone 10 mg tablet 10 mg PO Q4H PRN 06/04/23 07/31/23 xinudc-xkhdnjrg-cutslus 4 cap PO .COMPLEX 07/31/23 07/31/23 24,000-76,000-120,000 unit capsule,delayed rel (Creon) potassium chloride 20 mEq 20 meq PO BID 07/31/23 07/31/23 tablet,extended release(part/cryst) sennosides 8.6 mg tablet (senna) 8.6 mg PO DAILY 07/31/23 07/31/23 Previous Rx's Medication Instructions Recorded prochlorperazine 25 mg rectal 25 mg [place] BID PRN nausea and 04/02/23 suppository (Compazine) vomiting #12 ea Allergies Allergy/AdvReac Type Severity Reaction Status Date / Time diphenhydramine Allergy Anaphylaxis Unverified 07/31/23 18:01 General Stated Complaint: Dizzy/Sync SHANNON: 2 Review of Systems Narrative: Review of Systems Constitutional: Altered mental status Eyes: negative ENT: negative Cardiovascular: negative Respiratory: negative Gastrointestinal: negative : negative Musculoskeletal: negative Skin: negative Neurologic: negative Psych: negative Exam Narrative Exam Narrative: Physical Examination General: Somnolent HEENT: normocephalic, atraumatic; PERRL, EOM intact, conjunctiva normal; dry oral mucosa Neck: supple, trachea midline; full ROM Chest: normal to inspection; Chemo-Port right subclavian clean dry no fluctuance or induration Respiratory: normal respiratory effort, speaking in full sentences, clear to auscultation, no wheezing, rales or rhonchi Cardiac: Tachycardia regular rhythm, S1S2 intact, no murmurs rubs or gallops GI: abdomen soft, non-tender, non-distended; no palpable mass or hepatosplenomegaly Skin: Sunburn, warm to the touch Neuro: Somnolent, following basic commands, no focality, incoherent speech Extremities: No edema, no trauma Psych: Somnolent however intermittently agitated Course Vital Signs Vital signs: Vital Signs Temperature 40.4 C H 07/31/23 17:23 Pulse 65 07/31/23 17:23 Respiratory Rate 18 07/31/23 17:23 Blood Pressure 126/77 07/31/23 17:23 Pulse Oximetry 93 07/31/23 17:23 Temperature 39.2 C H 07/31/23 17:40 Temperature Source Rectal 07/31/23 17:40 Pulse 65 07/31/23 17:23 Respiratory Rate 18 07/31/23 17:23 Respiratory Effort Normal 07/31/23 17:26 Blood Pressure 126/77 07/31/23 17:23 Blood Pressure Position Sitting 07/31/23 17:23 Pulse Oximetry 93 07/31/23 17:23 Oxygen Delivery Method Room Air 07/31/23 17:23 Oxygen Flow Rate 0 07/31/23 17:23 Lab/Test Results Lab/Test Results: 07/31/23 17:39 Blood Blood Culture - Pending 07/31/23 17:33 Blood Blood Culture - Pending Laboratory Tests Range/Units 07/31/23 17:33 VBG pH (7.31-7.41) 7.48 H VBG pCO2 (41-51) mmHg 42 VBG pO2 mmHg 34 VBG HCO3 (23-28) mmol/L 31 H VBG Total CO2 (24-29) mmol/L 29 VBG O2 Saturation % 69 VBG Base Excess (-2-3) mmol/L 8 H Medical Decision Making 52-year-old male history of pancreatic cancer, diabetes, recently returned from [place] presents with altered mental status, was with his friend acting normally then became more somnolent and intermittently agitated, noted to be warm to the touch and sunburn, dry oral mucosa, moved to room, stat fingerstick showed blood sugar greater than 300, EKG sinus tachycardia, heart rate in the 130s sinus tach, normotensive, oxygen ranging from 94 to 97% on room air. No peripheral edema no signs of trauma. Pupils round equal reactive; will obtain rectal temp as patient's temporal temp may be affected by sunburn. Consider dehydration versus DKA versus hyper osmolar nonketotic syndrome versus viral illness versus bacterial infection such as pneumonia or UTI or bacteremia must also consider encephalitis versus early meningitis although nonmeningeal, nonfocal neurologic exam low suspicion for CVA or intracerebral hemorrhage muscles consider intracerebral metastasis of pancreatic disease most also consider electrolyte derangement lower suspicions for trauma. Labs cultures urinalysis chest x-ray CT head fluids will check rectal temperature if no improvements after fluids will consider lumbar puncture and antibiotics if rectally febrile. 18: 52 patient improving after fluids and antipyretics, does have rectal temperature. No headache no meningeal alert following commands interactive. Collateral information obtained from patient's partner, patient has not had pancreatic surgery however has had multiple stents placed in his biliary tree and has had intra-abdominal abscesses in the past. Clinical picture history physical and labs now more concerning for cholangitis versus intra-abdominal abscess lower suspicion for meningitis given improved mental status no neck pain no headache. Per patient's partner he has had a fever over the last several days starting with a arrived in [place] has been taking amoxicillin or Augmentin. 20: [address] findings with radiologist who describes profound inflammatory process in right upper quadrant including concerns for acute ascending cholangitis as well as cholecystitis, stat consult to [facility] GI to discuss ERCP for decompression of the biliary tree. Initiating pressors as patient has had multiple episodes of hypotension as low as 80s systolic with maps around 60 despite crystalloid boluses 20: 54 patient responding to norepinephrine, blood pressure currently 123/74 heart rate of 100, mental status greatly improving, discussed case with [facility] ICU team as well as GI team who would like patient transferred for admission to critical care unit and likely ERCP in the morning. Accepting physician Dr. Devlin. Patient and family amenable to transfer Quality:SDOH Health Related Social Needs: No Data to Display Critical Care Time Critical Care Time Critical Care Time: Yes Total Critical Care Time: 30 Attestation: Critical care time spent at the bedside assessing patient interpreting labs diabetic imaging, coordinating care of patient in septic shock requiring pressor support and ICU level admission transferred to [facility] intensive care unit PFSH All Active Problems (Updated 07/31/23 @ 20:56 by Rodri Rodgers MD) Ascending cholangitis (Acute) Septic shock (Acute) Abnormal weight loss (Acute) Asthma (Chronic) Hypertension (Chronic) Diabetes (Chronic) Screening for colon cancer (Acute) Abrasion, corneal (Acute) Eye foreign body (Acute) Social History Smoking/Tobacco Use Status: Former Tobacco Use Smoking risk assessment performed?: Yes Alcohol Intake: current Alcohol Intake frequency: a few times a month Drug use: Never Substance use type: does not use Housing: house Do you feel safe at home: Yes Do you feel safe in your relationship?: Yes
[2023-07-31 18:07] LABS: Bilirubin Negative (Negative); Blood Negative (Negative); Clarity Clear (Clear); Glucose 500 mg/dL (Negative); Ketones Trace mg/dL (Negative); Leukocyte Esterase Negative (Negative); Nitrite Negative (Negative)
[2023-07-31 18:17] LABS: ALT 166 U/L (16-63); AST 177 U/L (15-37); Albumin 2.7 g/dL (3.4-5.0); Alkaline Phosphatase 683 U/L (46-116); Anion Gap 11.4 mmol/L (3-11); BUN 10 mg/dL (7-18); Bilirubin, Total 3.7 mg/dL (0.2-1.0); CO2 29.6 mmol/L (21.0-32.0); Calcium 8.4 mg/dL (8.5-10.1); Chloride 98 mmol/L (98-107); Creatine Kinase 90 U/L (39-308); Estimated GFR 89.44 (mL/min/1.73m2); Glucose 334 mg/dL (74-106); Lipase 10 U/L (16-77); Magnesium 1.7 mg/dL (1.8-2.4); Potassium 3.6 mmol/L (3.5-5.1); Sodium 139 mmol/L (136-145); TSH (W/Ref FT4) 1.57 uIU/mL (0.36-3.74)
[2023-07-31 18:18] LABS: ETHANOL BLOOD < 3.0 mg/dL (<10)
[2023-07-31 18:21] LABS: *AMPHETAMINES SCREEN URINE Negative (Negative); *BARBITURATES SCREEN URINE Negative (Negative); *BENZODIAZEPINES SCREEN URINE Negative (Negative); Cannabinoids THC Negative (Negative); Cocaine Screen,Urine Negative (Negative); METHADONE URINE SCREEN Negative (Negative); OPIATES URINE SCREEN Negative (Negative)
[2023-07-31 18:24] LABS: Tricyclic Antidepressants Negative (Negative)
[2023-07-31 18:25] LABS: INR 1.3 (0.9-1.1); PTT Activated 30.4 sec (23.6-32.8); Prothrombin Time 12.9 sec (9.1-11.1)
[2023-07-31 18:38] LABS: Acetaminophen 19 ug/mL (10-30)
[2023-07-31 18:40] LABS: COVID-19 PCR Negative (Negative); Influenza A PCR Negative (Negative); Influenza B PCR Negative (Negative); RSV PCR Negative (Negative); Source Nasopharynx
[2023-07-31 18:42] LABS: Salicylate < 2.8 mg/dL (<2.8)
--- NOTE | 2023-07-31 18:45 | DI.CT_ITS ---
Exam(s) CT ABDOMEN PELVIS W EXAM: CT ABDOMEN PELVIS W CLINICAL HISTORY: pancreatic ca, hx biliary stents, and abd abscess. TECHNIQUE: Imaging Protocol: Axial computed tomography images with coronal and sagittal reformatted images were created and reviewed CONTRAST MATERIAL: Intravenous: Omnipaque-350 100cc Oral: None COMPARISON: CT CT ABDOMEN PELVIS W from 04/02/2023 FINDINGS: VISUALIZED LUNG BASES: No nodules nor pleural effusions evident. ABDOMEN: Again noted is a CBD stent. The CBD diameter above the stent is enlarged to 1.9 cm and there is also dilatation of intrahepatic ducts, more so than previous. The gallbladder is also distended and antwon atous. There are no calcified gallstones noted. LIVER: There are new lesions in the liver consistent with probable metastatic disease. One of these measures 3.3 x 2.8 cm. The other measures 2.2 by 1.7 cm. The lesion in the caudate lobe of the live r appears to have decreased in size, presently measuring 1.6 x 1.3 cm. No dilated intrahepatic ducts . GALLBLADDER/BILIARY: Distended and edematous. CBD dilated as above PANCREAS: Hypodense pancreatic head mass is again noted similar in size. SPLEEN: Splenomegaly again noted. Splenic vein is patent. Significant narrowing of the portal vein confluence-proximal portal vein in the region of the tumor is again noted and this has further progre ssed. ADRENALS: There are no significant adrenal masses. KIDNEYS:No cysts evident. No solid renal masses. No calculi nor hydronephrosis.. ABDOMINAL AORTA: Abdominal aorta is not enlarged. LYMPH NODES:Multiple mesenteric lymph nodes noted. Also some para-aortic adenopathy. ABDOMINAL WALL: Fat only containing left inguinal hernia noted. GI: There is no evidence of bowel obstruction, free air, nor abscess. PELVIS: GI: No evidence of appendicitis.No evidence of sigmoid diverticulitis. LYMPH NODES: There is no intrapelvic nor inguinal adenopathy. REPRODUCTIVE: Prostate not enlarged. Seminal vesicles unremarkable. URINARY BLADDER: There is a Mckeon catheter in the urinary bladder and the bladder contains some air m ost probably related to this instrumentation. OSSEOUS: No fractures and no significant osseous lesions. IMPRESSION: 1. Compared to the prior CT scan of 11 there is a aeration. The CBD stent appears occluded with the CBD above this level dilated to 1.9 cm and containing denser than bile material, dilatation of intrah epatic ducts now evident, and there is also gallbladder distension and pericholecystic fluid consiste nt with acute cholecystitis. 2. Increasing lesions in the liver which are most probably metastatic. There are now 2 new lesions i n the right hepatic lobe measuring 3.3 and 2.2 cm 3. Significant narrowing of the portal vein by tumor tissue. This has further increased from the dariana or study. 4. Persistent lesion in the pancreatic head. Enlarged mesenteric lymph nodes. Significant splenomegaly. Spleen measures 22 cm length. RADIATION DOSE DELIVERED: Total DLP DATA REPOSITORY: All CT scans at this facility are submitted to the National Radiology Data Registry (NRDR) Dose Index Registry (DIR) with the [employer] (ACR). RADIATION OPTIMIZATION: All CT scans at this facility use at least one of these dose optimization te chniques: automated exposure control; mA and/or kV adjustment per patient size (includes targeted exa ms where dose is matched to clinical indication); or iterative reconstruction.
[2023-07-31] MEDS: Omnipaque 350 MG/ML 100 ML BTL IJ (18:59)
[2023-07-31] MEDS: Normal Saline - Diluent 50 ML VIAL IJ (18:59)
[2023-07-31] MEDS: PIPERACILLIN/TAZO 3.375 GM in Normal Saline 50 ML IVPB (19:46)
[2023-07-31] MEDS: Famotidine 20 MG/2 ML VIAL IVP (19:47)
[2023-07-31] MEDS: VANCOMYCIN 1,500 MG in Normal Saline 250 ML 166.6666 MG IVPB (19:47)
[2023-07-31] MEDS: MORPHine 4 MG/ML SYR 2 MG IVP (19:47)
--- NOTE | 2023-07-31 20:01 | DI.VRAD_ITS ---
Addendum created by Elvira Ross MD on 07/31/2023 8:01:01 PM EDT: THIS REPORT CONTAINS FINDINGS THAT MAY BE CRITICAL TO PATIENT CARE. The findings were verbally communicated via telephone conference with Rodri Rodgers at 7:50 PM EDT on 07/31/2023. The findings were acknowledged and understood. Initial report created on 07/31/2023 8:00:45 PM EDT: PROCEDURE INFORMATION: Exam: CT Abdomen And Pelvis With Contrast Exam date and time: 07/31/2023 6:57 PM Age: 52 years old Clinical indication: Other: Pancreatic CA, HX biliary stents, and abd abscess TECHNIQUE: Imaging protocol: Computed tomography of the abdomen and pelvis with contrast. Contrast material: 350; Contrast volume: 100 ml; Contrast route: INTRAVENOUS (IV); COMPARISON: CT ABDOMEN PELVIS W 02/04/2023 16:22 FINDINGS: Lungs: Calcified granuloma posterior left lower lobe. Diaphragm: Hiatal hernia. Liver: Dilated intrahepatic biliary ducts. There are 2 new mass lesions in the right hepatic lobe measuring 3 point 0 cm in the dome of the liver laterally and 2.0 cm in the dome medially. There is a 1 point 1 cm hypodense mass in the inferior right hepatic lobe. Gallbladder and bile ducts: Markedly dilated intrahepatic biliary ducts which has progressed since the prior study. Biliary stent in place. There is radiodense material in the common bile duct stent. Distended gallbladder with enhancing wall. Pancreas: Interval enlargement of the rim enhancing cystic lesions in the region of the pancreatic head the pancreatic body and tail are similar to prior study. Spleen: Splenomegaly. The spleen measures 22 cm in length. Adrenal glands: Normal. No mass. Kidneys and ureters: Normal. No hydronephrosis. Stomach and bowel: Fluid and air distended stomach. Large solid stool volume. Active focal inflammatory changes in the right upper quadrant with fluid around the gallbladder and infiltration of the fat in the right upper quadrant around the distal stomach, duodenum, hepatic flexure, and gallbladder. Dilated loop of small bowel in the left lower quadrant with enhancement of the mucosa measuring 2.9 cm in diameter. Appendix: No evidence of appendicitis. Intraperitoneal space: Trace free fluid in the pelvis. Infiltration of the mesenteric fat. Infiltration of the anterior right perirenal fascia and lateral conal fascia. Vasculature: Unremarkable. No abdominal aortic aneurysm. Lymph nodes: Unremarkable. No enlarged lymph nodes. Urinary bladder: Urine distended bladder with Mckeon catheter in place. Free air within the urinary bladder. Reproductive: Unremarkable as visualized. Bones/joints: Multilevel degenerative scoliotic changes of the spine. Degenerative changes of the SI joint. Soft tissues: Fat distension of the left inguinal canal. Infiltration of the anterior right perirenal fascia and lateral conal fascia. IMPRESSION: 1. Dilated intrahepatic biliary ducts and proximal common bile duct measuring 1.2 cm in diameter with fluid distended inflamed gallbladder and pericholecystic fluid consistent with acute cholecystitis. In addition this inflammatory process involves the organs in the right upper quadrant including the gallbladder, hepatic flexure, pancreas, and the distal stomach with free fluid in the pelvis. Findings are consistent with pancreatitis and acute ascending cholangitis and cholecystitis. 2. New mass lesions within the liver of concern for metastatic disease. 3. Enlarged mesenteric lymph nodes with infiltration of the mesenteric fat. 4. Marked splenomegaly. 5. Multiple additional findings as discussed above. THIS REPORT CONTAINS FINDINGS THAT MAY BE CRITICAL TO PATIENT CARE. The findings were verbally communicated via telephone conference with Rodri Rodgers at 7:50 PM EDT on 07/31/2023. The findings were acknowledged and understood. Dictated and Authenticated by: Elvira Ross MD. Ordering:BRAD Mace MD
[2023-07-31] MEDS: Norepinephrine in D5W 8 MG/250 ML BAG 9.375 MG IV (20:24)
[2023-07-31 21:23] LABS: Lactate 1.1 mmol/L (0.6-1.4)
[2023-08-01] VITALS: BP 118/78; PULSE 87; PULSE 89; RESP 15; O2SAT 96
[2023-08-01 00:01] VITALS: PULSE 85; RESP 19; O2SAT 96
[2023-08-01 00:10] VITALS: PULSE 97; RESP 16; O2SAT 96
[2023-08-01 00:15] VITALS: BP 131/79; PULSE 83; PULSE 86; RESP 17; O2SAT 95
--- NOTE | 2023-08-01 08:25 | NUR.NOTE ---
Lab called with preliminary blood culture results. Given to Dr. Garrett Hastings and then faxed to [facility] pt transferred to ICU [address] Hastings aware. Nursing Note:
--- NOTE | 2023-08-06 07:54 | NUR.NOTE ---
Final blood culture results and sensitivities printed and were faxed to [address]; fax # [phone]. Dr. Hastings aware. Nursing Note:
== END 2023-08-01 00:21 | disposition short-term general hospital (02) ==
PROVIDERS: Emergency Provider Emergency Medicine; PCP Family Medicine
DX: R65.21 Severe sepsis with septic shock (principal); K83.09 Other cholangitis; E11.65 Type 2 diabetes mellitus with hyperglycemia; R00.0 Tachycardia, unspecified; I95.9 Hypotension, unspecified; C25.9 Malignant neoplasm of pancreas, unspecified; Z95.9 Presence of cardiac and vascular implant and graft, unspecified; Z96.89 Presence of other specified functional implants; Z79.84 Long term (current) use of oral hypoglycemic drugs; Z79.4 Long term (current) use of insulin
CPT/HCPCS: 51702; 80053; 80307; 82550; 82805; 82962; 83690; 87040; 87077; 87637; 93005; 96361; 96365; 96366; 96368; 96375; 99285; 70450; 71046; 74177; 80320; 80329; 81003; 83605; 83735; 84443; 85025; 85610; 85730; 87186; 93010; J0131; J2270; J2543; J3370; J3490

== ENCOUNTER 2023-08-12 04:32 | Outpatient (RCR) | payer BC, SELFPAY ==
[2023-07-17 00:04] VITALS: BP 123/81; PULSE 80; RESP 16; TEMP 36.2
[2023-07-17 08:18] LABS: Abs Immature Grans 0.02 10^3/uL (0.0-0.06); Absolute Basophil Count 0.01 10^3/uL (0.0-0.2); Absolute Eosinophil Count 0.08 10^3/uL (0.0-0.7); Absolute Lymphocyte Count 0.47 10^3/uL (1.2-3.4); Absolute Monocyte Count 0.54 10^3/uL (0.1-0.8); Absolute Neutrophil Count 4.35 10^3/uL (1.2-6.7); Basophils % 0.2; Eosinophils % 1.5; HCT 33.7 % (40.0-50.0); HGB 10.6 g/dL (13.5-17.5); Immature Grans % 0.4; Lymphocytes % 8.6; MCH 24.6 pg (27.0-33.0); MCHC 31.5 % (32.0-36.0); MCV 78 fL (80-95); MPV 10.8 fL (8.0-11.0); Monocytes % 9.9; Neutrophils % 79.4; RBC 4.31 10^6/uL (4.36-5.78); RDW 16.7 % (11.8-14.1); RDW-SD 46.6 fL; WBC 5.47 10^3/uL (4.4-10.8)
[2023-07-17 08:34] LABS: Diff Comment Diff Reviewed; Platelet Count 82 10^3/uL (130-400); RBC Morphology Normal
[2023-07-17 08:35] LABS: ALT 18 U/L (16-63); AST 13 U/L (15-37); Albumin 3.2 g/dL (3.4-5.0); Alkaline Phosphatase 99 U/L (46-116); Anion Gap 11.5 mmol/L (3-11); BUN 9 mg/dL (7-18); Bilirubin, Total 0.5 mg/dL (0.2-1.0); CO2 26.5 mmol/L (21.0-32.0); CREATININE 0.9 mg/dL (0.70-1.30); Calcium 8.9 mg/dL (8.5-10.1); Chloride 102 mmol/L (98-107); Estimated GFR 101.49 (mL/min/1.73m2); Glucose 227 mg/dL (74-106); Potassium 3.3 mmol/L (3.5-5.1); Sodium 140 mmol/L (136-145); Total Protein 8.4 g/dL (6.4-8.2)
[2023-07-17] MEDS: Normal Saline Flush 10 ML SYR IVP (10:26)
[2023-07-17 20:02] LABS: CA 19-9 230 U/mL (<35)
[2023-08-12] MEDS: Normal Saline Flush 10 ML SYR IVP (07:35)
[2023-08-12 08:23] LABS: Abs Immature Grans 0.08 10^3/uL (0.0-0.06); Absolute Basophil Count 0.01 10^3/uL (0.0-0.2); Absolute Eosinophil Count 0.09 10^3/uL (0.0-0.7); Absolute Lymphocyte Count 0.52 10^3/uL (1.2-3.4); Absolute Neutrophil Count 5.29 10^3/uL (1.2-6.7); Basophils % 0.2; Eosinophils % 1.4; HGB 7.3 g/dL (13.5-17.5); Immature Grans % 1.3; Lymphocytes % 8.3; MCH 25.6 pg (27.0-33.0); MCHC 30.4 % (32.0-36.0); MCV 84 fL (80-95); MPV 10.7 fL (8.0-11.0); Monocytes % 4.8; Platelet Count 193 10^3/uL (130-400); RBC 2.85 10^6/uL (4.36-5.78); RDW 22.5 % (11.8-14.1); WBC 6.29 10^3/uL (4.4-10.8)
[2023-08-12 08:35] LABS: Anisocytosis 2+; Diff Comment Diff Reviewed; Hypochromasia 2+; Polychromasia Present
[2023-08-12 09:07] LABS: ALT 23 U/L (16-63); AST 16 U/L (15-37); Albumin 1.9 g/dL (3.4-5.0); Alkaline Phosphatase 251 U/L (46-116); Anion Gap 6.8 mmol/L (3-11); BUN 6 mg/dL (7-18); Bilirubin, Total 0.4 mg/dL (0.2-1.0); CO2 27.2 mmol/L (21.0-32.0); Calcium 7.9 mg/dL (8.5-10.1); Chloride 100 mmol/L (98-107); Estimated GFR 89.44 (mL/min/1.73m2); Glucose 302 mg/dL (74-106); Potassium 4.1 mmol/L (3.5-5.1); Sodium 134 mmol/L (136-145); Total Protein 7.1 g/dL (6.4-8.2)
== END 2023-08-16 23:59 | disposition home or self-care (01) ==
LOC: INF 04:32
PROVIDERS: PCP Family Medicine; Visit Provider Internal Medicine Hematology & Oncology
DX: C25.0 Malignant neoplasm of head of pancreas (principal); D50.9 Iron deficiency anemia, unspecified; Z45.2 Encounter for adjustment and management of vascular access device
CPT/HCPCS: 36591; 80053; 86850; 86900; 86901; 96523; 85025; 86301

== ENCOUNTER 2023-08-19 14:10 | Outpatient (REF) | payer BC, SELFPAY ==
[2023-08-19 14:54] LABS: Abs Immature Grans 0.06 10^3/uL (0.0-0.06); Absolute Basophil Count 0.01 10^3/uL (0.0-0.2); Absolute Eosinophil Count 0.04 10^3/uL (0.0-0.7); Absolute Lymphocyte Count 0.57 10^3/uL (1.2-3.4); Absolute Monocyte Count 0.26 10^3/uL (0.1-0.8); Absolute Neutrophil Count 4.75 10^3/uL (1.2-6.7); Basophils % 0.2; Eosinophils % 0.7; HCT 25.9 % (40.0-50.0); HGB 7.7 g/dL (13.5-17.5); Immature Grans % 1.1; MCH 25.9 pg (27.0-33.0); MCHC 29.7 % (32.0-36.0); MCV 87 fL (80-95); MPV 10.4 fL (8.0-11.0); Monocytes % 4.6; Neutrophils % 83.4; Platelet Count 125 10^3/uL (130-400); RBC 2.97 10^6/uL (4.36-5.78); RDW 24.1 % (11.8-14.1); RDW-SD 75.2 fL; WBC 5.69 10^3/uL (4.4-10.8)
[2023-08-19 15:09] LABS: Anion Gap 7.3 mmol/L (3-11); BUN 8 mg/dL (7-18); CO2 29.7 mmol/L (21.0-32.0); CREATININE 0.9 mg/dL (0.70-1.30); Calcium 7.9 mg/dL (8.5-10.1); Chloride 102 mmol/L (98-107); Estimated GFR 101.49 (mL/min/1.73m2); Glucose 280 mg/dL (74-106); Potassium 4.3 mmol/L (3.5-5.1); Sodium 139 mmol/L (136-145)
[2023-08-19 15:15] LABS: Anisocytosis 2+; Diff Comment RBC Morph Reviewed
== END 2023-08-19 14:11 | disposition home or self-care (01) ==
LOC: NCHCN 14:10
PROVIDERS: PCP Family Medicine; Visit Provider Family Medicine
DX: K75.0 Abscess of liver (principal); K83.8 Other specified diseases of biliary tract; A41.89 Other specified sepsis
CPT/HCPCS: 80048; 85025

== ENCOUNTER 2023-08-24 11:10 | Outpatient (REF) | payer BC, SELFPAY ==
[2023-08-24 20:04] LABS: Anion Gap 4.7 mmol/L (3-11); BUN 6 mg/dL (7-18); CO2 31.3 mmol/L (21.0-32.0); CREATININE 0.9 mg/dL (0.70-1.30); Calcium 8.1 mg/dL (8.5-10.1); Chloride 99 mmol/L (98-107); Estimated GFR 101.49 (mL/min/1.73m2); Glucose 240 mg/dL (74-106); Potassium 3.6 mmol/L (3.5-5.1); Sodium 135 mmol/L (136-145)
[2023-08-24 20:07] LABS: Abs Immature Grans 0.04 10^3/uL (0.0-0.06); Absolute Basophil Count 0.02 10^3/uL (0.0-0.2); Absolute Eosinophil Count 0.09 10^3/uL (0.0-0.7); Absolute Lymphocyte Count 0.45 10^3/uL (1.2-3.4); Absolute Monocyte Count 0.25 10^3/uL (0.1-0.8); Absolute Neutrophil Count 5.02 10^3/uL (1.2-6.7); Basophils % 0.3; Eosinophils % 1.5; HCT 30.7 % (40.0-50.0); HGB 8.9 g/dL (13.5-17.5); Immature Grans % 0.7; Lymphocytes % 7.7; MCH 26.1 pg (27.0-33.0); MCV 90 fL (80-95); MPV 10.8 fL (8.0-11.0); Monocytes % 4.3; Neutrophils % 85.5; Platelet Count 137 10^3/uL (130-400); RBC 3.41 10^6/uL (4.36-5.78); RDW 23.8 % (11.8-14.1); RDW-SD 77.8 fL; WBC 5.87 10^3/uL (4.4-10.8)
[2023-08-24 20:32] LABS: Anisocytosis 2+; Diff Comment RBC Morph Reviewed; Hypochromasia 1+
== END 2023-08-24 11:11 | disposition home or self-care (01) ==
LOC: LBN 11:10
PROVIDERS: PCP Family Medicine; Visit Provider Family Medicine
DX: K75.0 Abscess of liver (principal); A41.89 Other specified sepsis
CPT/HCPCS: 80048; 85027; 85025

== ENCOUNTER 2023-09-01 03:46 | Outpatient (RCR) | payer BC, SELFPAY ==
[2023-08-17 00:03] VITALS: BP 123/81; PULSE 80; RESP 16; TEMP 36.2
[2023-08-21] MEDS: Normal Saline Flush 10 ML SYR IVP (13:28)
[2023-08-21 13:52] LABS: Abs Immature Grans 0.05 10^3/uL (0.0-0.06); Absolute Basophil Count 0.01 10^3/uL (0.0-0.2); Absolute Eosinophil Count 0.08 10^3/uL (0.0-0.7); Absolute Lymphocyte Count 0.54 10^3/uL (1.2-3.4); Absolute Monocyte Count 0.31 10^3/uL (0.1-0.8); Absolute Neutrophil Count 5.07 10^3/uL (1.2-6.7); Basophils % 0.2; Eosinophils % 1.3; HCT 26.4 % (40.0-50.0); HGB 7.9 g/dL (13.5-17.5); Immature Grans % 0.8; Lymphocytes % 8.9; MCH 25.9 pg (27.0-33.0); MCHC 29.9 % (32.0-36.0); MCV 87 fL (80-95); MPV 9.7 fL (8.0-11.0); Monocytes % 5.1; Neutrophils % 83.7; Platelet Count 133 10^3/uL (130-400); RBC 3.05 10^6/uL (4.36-5.78); RDW-SD 73.2 fL; WBC 6.06 10^3/uL (4.4-10.8)
[2023-08-21 13:53] LABS: RDW 23.4 % (11.8-14.1)
[2023-08-21 14:07] LABS: ALT 14 U/L (16-63); AST 13 U/L (15-37); Albumin 2.1 g/dL (3.4-5.0); Alkaline Phosphatase 151 U/L (46-116); Anion Gap 8.5 mmol/L (3-11); BUN 5 mg/dL (7-18); Bilirubin, Total 0.4 mg/dL (0.2-1.0); CO2 27.5 mmol/L (21.0-32.0); CREATININE 0.9 mg/dL (0.70-1.30); Chloride 100 mmol/L (98-107); Estimated GFR 101.49 (mL/min/1.73m2); Glucose 280 mg/dL (74-106); Potassium 3.6 mmol/L (3.5-5.1); Sodium 136 mmol/L (136-145); Total Protein 7.6 g/dL (6.4-8.2)
[2023-08-21 23:28] LABS: CA 19-9 119 U/mL (<35)
[2023-09-01] MEDS: Normal Saline Flush 10 ML SYR IVP (07:41)
[2023-09-01 08:38] LABS: Abs Immature Grans 0.02 10^3/uL (0.0-0.06); Absolute Basophil Count 0.01 10^3/uL (0.0-0.2); Absolute Eosinophil Count 0.15 10^3/uL (0.0-0.7); Absolute Lymphocyte Count 0.55 10^3/uL (1.2-3.4); Absolute Monocyte Count 0.28 10^3/uL (0.1-0.8); Absolute Neutrophil Count 2.69 10^3/uL (1.2-6.7); Basophils % 0.3; Eosinophils % 4.1; HCT 28.9 % (40.0-50.0); HGB 8.8 g/dL (13.5-17.5); Immature Grans % 0.5; Lymphocytes % 14.9; MCH 25.8 pg (27.0-33.0); MCHC 30.4 % (32.0-36.0); MCV 85 fL (80-95); MPV 10.1 fL (8.0-11.0); Monocytes % 7.6; Neutrophils % 72.6; Platelet Count 137 10^3/uL (130-400); RBC 3.41 10^6/uL (4.36-5.78); RDW 21.1 % (11.8-14.1); RDW-SD 64.8 fL
[2023-09-01 08:53] LABS: ALT 10 U/L (16-63); AST 14 U/L (15-37); Albumin 2.5 g/dL (3.4-5.0); Alkaline Phosphatase 107 U/L (46-116); Anion Gap 8.1 mmol/L (3-11); BUN 4 mg/dL (7-18); Bilirubin, Total 0.4 mg/dL (0.2-1.0); CO2 29.9 mmol/L (21.0-32.0); CREATININE 0.9 mg/dL (0.70-1.30); Calcium 8.6 mg/dL (8.5-10.1); Chloride 103 mmol/L (98-107); Estimated GFR 101.49 (mL/min/1.73m2); Glucose 186 mg/dL (74-106); Potassium 3.6 mmol/L (3.5-5.1); Sodium 141 mmol/L (136-145); Total Protein 7.8 g/dL (6.4-8.2)
[2023-09-01 09:16] LABS: Anisocytosis 1+; Diff Comment RBC Morph Reviewed
[2023-09-01 09:17] LABS: Hypochromasia 2+
== END 2023-09-15 23:59 | disposition home or self-care (01) ==
LOC: INF 03:46
PROVIDERS: PCP Family Medicine; Visit Provider Internal Medicine Hematology & Oncology
DX: C25.0 Malignant neoplasm of head of pancreas (principal); Z45.2 Encounter for adjustment and management of vascular access device
CPT/HCPCS: 36591; 80053; 85025; 86301

== ENCOUNTER 2023-10-16 12:40 | Outpatient (RCR) | payer BC, SELFPAY ==
[2023-09-16 00:04] VITALS: BP 123/81; PULSE 80; RESP 16; TEMP 36.2
[2023-10-09 10:12] LABS: Abs Immature Grans 0.03 10^3/uL (0.0-0.06); Absolute Basophil Count 0.01 10^3/uL (0.0-0.2); Absolute Eosinophil Count 0.08 10^3/uL (0.0-0.7); Absolute Lymphocyte Count 0.22 10^3/uL (1.2-3.4); Absolute Neutrophil Count 3.52 10^3/uL (1.2-6.7); Basophils % 0.2 %; HCT 33.1 % (40.0-50.0); HGB 10.2 g/dL (13.5-17.5); Immature Grans % 0.7 %; Lymphocytes % 5.4 %; MCH 24.8 pg (27.0-33.0); MCHC 30.8 % (32.0-36.0); MCV 81 fL (80-95); MPV 10.6 fL (8.0-11.0); Monocytes % 4.9 %; Neutrophils % 86.8 %; RBC 4.11 10^6/uL (4.36-5.78); RDW-SD 46.9 fL; WBC 4.06 10^3/uL (4.4-10.8)
[2023-10-09 10:33] LABS: Diff Comment Diff Reviewed; Platelet Count 72 10^3/uL (130-400); RBC Morphology Normal
[2023-10-09 10:34] LABS: ALT 23 U/L (16-63); AST 13 U/L (15-37); Albumin 3.6 g/dL (3.4-5.0); Alkaline Phosphatase 86 U/L (46-116); Anion Gap 3.4 mmol/L (3-11); BUN 15 mg/dL (7-18); Bilirubin, Total 0.6 mg/dL (0.2-1.0); CO2 26.6 mmol/L (21.0-32.0); CREATININE 0.9 mg/dL (0.70-1.30); Calcium 9.1 mg/dL (8.5-10.1); Chloride 103 mmol/L (98-107); Estimated GFR 100.86 (mL/min/1.73m2); Glucose 388 mg/dL (74-106); Potassium 3.6 mmol/L (3.5-5.1); Sodium 133 mmol/L (136-145); Total Protein 8.4 g/dL (6.4-8.2)
[2023-10-09] MEDS: Normal Saline Flush 10 ML SYR IVP (11:32)
[2023-10-09 20:55] LABS: CA 19-9 319 U/mL (<35)
[2023-10-13] MEDS: Normal Saline Flush 10 ML SYR IVP (13:20)
[2023-10-13 13:51] LABS: Abs Immature Grans 0.01 10^3/uL (0.0-0.06); Absolute Eosinophil Count 0.12 10^3/uL (0.0-0.7); Absolute Lymphocyte Count 0.21 10^3/uL (1.2-3.4); Absolute Monocyte Count 0.27 10^3/uL (0.1-0.8); Absolute Neutrophil Count 2.81 10^3/uL (1.2-6.7); Eosinophils % 3.5 %; HCT 32.5 % (40.0-50.0); HGB 10.1 g/dL (13.5-17.5); Immature Grans % 0.3 %; Lymphocytes % 6.1 %; MCH 24.8 pg (27.0-33.0); MCHC 31.1 % (32.0-36.0); MCV 80 fL (80-95); MPV 10.5 fL (8.0-11.0); Monocytes % 7.9 %; Neutrophils % 82.2 %; RBC 4.07 10^6/uL (4.36-5.78); RDW 16.2 % (11.8-14.1); RDW-SD 46.1 fL; WBC 3.42 10^3/uL (4.4-10.8)
[2023-10-13 14:08] LABS: Platelet Count 64 10^3/uL (130-400)
[2023-10-13 14:09] LABS: Diff Comment PLT Morph Reviewed; RBC Morphology Normal
[2023-10-16 13:01] LABS: Abs Immature Grans 0.01 10^3/uL (0.0-0.06); Absolute Basophil Count 0.01 10^3/uL (0.0-0.2); Absolute Eosinophil Count 0.06 10^3/uL (0.0-0.7); Absolute Lymphocyte Count 0.15 10^3/uL (1.2-3.4); Absolute Monocyte Count 0.22 10^3/uL (0.1-0.8); Basophils % 0.3 %; Eosinophils % 1.9 %; HCT 32.4 % (40.0-50.0); HGB 10.1 g/dL (13.5-17.5); Immature Grans % 0.3 %; Lymphocytes % 4.8 %; MCH 24.7 pg (27.0-33.0); MCHC 31.2 % (32.0-36.0); MCV 79 fL (80-95); MPV 9.8 fL (8.0-11.0); Neutrophils % 85.7 %; RBC 4.09 10^6/uL (4.36-5.78); RDW 16.2 % (11.8-14.1); RDW-SD 46.2 fL; WBC 3.15 10^3/uL (4.4-10.8)
[2023-10-16 13:09] LABS: Diff Comment Diff Reviewed; Platelet Count 57 10^3/uL (130-400); RBC Morphology Normal
[2023-10-16 13:19] LABS: ALT 27 U/L (16-63); AST 16 U/L (15-37); Albumin 3.6 g/dL (3.4-5.0); Alkaline Phosphatase 92 U/L (46-116); Anion Gap 9.7 mmol/L (3-11); BUN 14 mg/dL (7-18); Bilirubin, Total 0.5 mg/dL (0.2-1.0); CO2 27.3 mmol/L (21.0-32.0); Calcium 8.8 mg/dL (8.5-10.1); Chloride 100 mmol/L (98-107); Estimated GFR 88.88 (mL/min/1.73m2); Potassium 3.6 mmol/L (3.5-5.1); Sodium 137 mmol/L (136-145); Total Protein 8.1 g/dL (6.4-8.2)
[2023-10-16 13:22] LABS: Glucose 535 mg/dL (74-106)
== END 2023-10-16 23:59 | disposition home or self-care (01) ==
LOC: INF 12:40
PROVIDERS: PCP Family Medicine; Visit Provider Internal Medicine Hematology & Oncology
DX: C25.0 Malignant neoplasm of head of pancreas (principal); Z45.2 Encounter for adjustment and management of vascular access device
CPT/HCPCS: 36591; 80053; 85025; 86301

== ENCOUNTER 2023-11-05 00:44 | Outpatient (RCR) | payer BC, SELFPAY ==
[2023-10-17 00:04] VITALS: BP 123/81; PULSE 80; RESP 16; TEMP 36.2
[2023-10-22] MEDS: Normal Saline Flush 10 ML SYR IVP (10:39)
[2023-10-22 10:48] LABS: Abs Immature Grans 0.01 10^3/uL (0.0-0.06); Absolute Basophil Count 0.01 10^3/uL (0.0-0.2); Absolute Eosinophil Count 0.13 10^3/uL (0.0-0.7); Absolute Lymphocyte Count 0.11 10^3/uL (1.2-3.4); Absolute Monocyte Count 0.32 10^3/uL (0.1-0.8); Absolute Neutrophil Count 3.24 10^3/uL (1.2-6.7); Basophils % 0.3 %; Eosinophils % 3.4 %; HCT 33.6 % (40.0-50.0); HGB 10.6 g/dL (13.5-17.5); Immature Grans % 0.3 %; Lymphocytes % 2.9 %; MCH 24.8 pg (27.0-33.0); MCHC 31.5 % (32.0-36.0); MCV 79 fL (80-95); MPV 10.9 fL (8.0-11.0); Monocytes % 8.4 %; Neutrophils % 84.7 %; Platelet Count 55 10^3/uL (130-400); RBC 4.28 10^6/uL (4.36-5.78); RDW-SD 45.3 fL; WBC 3.82 10^3/uL (4.4-10.8)
[2023-10-22 11:00] LABS: ALT 29 U/L (16-63); AST 16 U/L (15-37); Albumin 3.4 g/dL (3.4-5.0); Alkaline Phosphatase 82 U/L (46-116); Anion Gap 6.9 mmol/L (3-11); BUN 12 mg/dL (7-18); Bilirubin, Total 0.4 mg/dL (0.2-1.0); CO2 29.1 mmol/L (21.0-32.0); CREATININE 0.8 mg/dL (0.70-1.30); Calcium 8.6 mg/dL (8.5-10.1); Chloride 103 mmol/L (98-107); Estimated GFR 104.51 (mL/min/1.73m2); Glucose 173 mg/dL (74-106); Potassium 3.3 mmol/L (3.5-5.1); Sodium 139 mmol/L (136-145); Total Protein 7.9 g/dL (6.4-8.2)
[2023-10-27] MEDS: Normal Saline Flush 10 ML SYR IVP (10:00)
[2023-10-27 10:32] LABS: Abs Immature Grans 0.03 10^3/uL (0.0-0.06); Absolute Basophil Count 0.02 10^3/uL (0.0-0.2); Absolute Eosinophil Count 0.07 10^3/uL (0.0-0.7); Absolute Lymphocyte Count 0.07 10^3/uL (1.2-3.4); Absolute Monocyte Count 0.56 10^3/uL (0.1-0.8); Absolute Neutrophil Count 7.31 10^3/uL (1.2-6.7); Basophils % 0.2 %; Eosinophils % 0.9 %; HCT 33.7 % (40.0-50.0); HGB 10.8 g/dL (13.5-17.5); Immature Grans % 0.4 %; Lymphocytes % 0.9 %; MCH 24.9 pg (27.0-33.0); MCV 78 fL (80-95); MPV 10.5 fL (8.0-11.0); Monocytes % 6.9 %; Neutrophils % 90.7 %; Platelet Count 67 10^3/uL (130-400); RBC 4.34 10^6/uL (4.36-5.78); RDW 16.2 % (11.8-14.1); WBC 8.06 10^3/uL (4.4-10.8)
[2023-10-27 10:46] LABS: ALT 29 U/L (16-63); AST 20 U/L (15-37); Albumin 3.4 g/dL (3.4-5.0); Alkaline Phosphatase 79 U/L (46-116); Anion Gap 10.8 mmol/L (3-11); BUN 11 mg/dL (7-18); Bilirubin, Total 0.6 mg/dL (0.2-1.0); CO2 26.2 mmol/L (21.0-32.0); CREATININE 0.9 mg/dL (0.70-1.30); Calcium 8.8 mg/dL (8.5-10.1); Chloride 102 mmol/L (98-107); Estimated GFR 100.86 (mL/min/1.73m2); Glucose 134 mg/dL (74-106); Potassium 3.5 mmol/L (3.5-5.1); Sodium 139 mmol/L (136-145); Total Protein 7.9 g/dL (6.4-8.2)
[2023-11-05] MEDS: Normal Saline Flush 10 ML SYR IVP (07:54)
[2023-11-05 08:27] LABS: Abs Immature Grans 0.03 10^3/uL (0.0-0.06); Absolute Basophil Count 0.01 10^3/uL (0.0-0.2); Absolute Eosinophil Count 0.08 10^3/uL (0.0-0.7); Absolute Lymphocyte Count 0.09 10^3/uL (1.2-3.4); Absolute Monocyte Count 0.25 10^3/uL (0.1-0.8); Absolute Neutrophil Count 2.65 10^3/uL (1.2-6.7); Basophils % 0.3 %; Eosinophils % 2.6 %; HGB 10.6 g/dL (13.5-17.5); Lymphocytes % 2.9 %; MCH 24.7 pg (27.0-33.0); MCHC 31.2 % (32.0-36.0); MCV 79 fL (80-95); MPV 9.7 fL (8.0-11.0); Neutrophils % 85.2 %; Platelet Count 59 10^3/uL (130-400); RBC 4.29 10^6/uL (4.36-5.78); RDW 16.1 % (11.8-14.1); RDW-SD 46.3 fL; WBC 3.11 10^3/uL (4.4-10.8)
[2023-11-05 08:46] LABS: ALT 31 U/L (16-63); AST 21 U/L (15-37); Albumin 3.4 g/dL (3.4-5.0); Alkaline Phosphatase 83 U/L (46-116); Anion Gap 8.5 mmol/L (3-11); BUN 11 mg/dL (7-18); Bilirubin, Total 0.36 mg/dL (0.2-1.0); CO2 28.5 mmol/L (21.0-32.0); CREATININE 0.8 mg/dL (0.70-1.30); Calcium 8.7 mg/dL (8.5-10.1); Chloride 104 mmol/L (98-107); Estimated GFR 104.51 (mL/min/1.73m2); Glucose 170 mg/dL (74-106); Potassium 3.5 mmol/L (3.5-5.1); Sodium 141 mmol/L (136-145); Total Protein 7.9 g/dL (6.4-8.2)
== END 2023-11-15 23:59 | disposition home or self-care (01) ==
LOC: INF 00:44
PROVIDERS: PCP Family Medicine; Visit Provider Internal Medicine Hematology & Oncology
DX: C25.0 Malignant neoplasm of head of pancreas (principal); D50.9 Iron deficiency anemia, unspecified; Z45.2 Encounter for adjustment and management of vascular access device
CPT/HCPCS: 36591; 80053; 85025

== ENCOUNTER 2023-11-09 12:13 | Emergency (ER) | payer BC, SELFPAY ==
[2023-11-09] VITALS (49 sets, daily range): BP systolic 87–153; BP diastolic 58–131; PULSE 68–93; RESP 8–23; TEMP 36.2–36.8; O2SAT 95–100
--- NOTE | 2023-11-09 12:15 | RT.EKG_ITS ---
APPROVED REPORT Exam: Resting ECG Reason for Exam: GI bleed/hypotension Patient Location: E HR:77 bpm ECG Measurements Heart Rate 77 AXIS ND 142 P 52 QRSd 87 QRS -65 QT 398 T 31 QTc 452 Conclusion Sinus rhythm 77 no stemi
--- NOTE | 2023-11-09 12:28 | ED.GENADUL_ITS ---
Discharge Plan Disposition Patient Disposition: Transfer-Acute Inpatient Care Specific Acute Inpt Facility: [facility] Condition: Fair Discharge Details Chief Complaint: GI Bleed Clinical Impression: GI bleeding Primary Care Provider: Zohaib Camargo ED Provider: Trey Mays Home Meds and New Rx's Prescriptions: No Action albuterol sulfate 90 mcg/actuation HFA aerosol inhaler 2 puff inhalation Q6H PRN metformin 500 mg tablet 500 mg PO BID insulin glargine [Lantus Solostar U-100 Insulin] 100 unit/mL (3 mL) insulin pen 10 unit subcut QPM Hold Instructions: pts girlfriend states doesnt take at this time. morphine 15 mg tablet extended release 15 mg PO Q12H Patient Comments: TAKE ONE TABLET BY MOUTH TWICE A DAY oxycodone 10 mg tablet 10 mg PO Q4H PRN Patient Comments: TAKE 1-2 TABLETS BY MOUTH EVERY 4 HOURS NEEDED FOR PAIN Jardiance 10 mg tablet 10 mg PO ONCE Patient Comments: TAKE ONE TABLET BY MOUTH EVERY DAY sennosides [senna] 8.6 mg tablet 8.6 mg PO DAILY Patient Comments: TAKE ONE TABLET BY MOUTH TWICE A DAY Creon 24,000-76,000 -120,000 unit capsule,delayed release(DR/EC) 4 cap PO .COMPLEX Patient Comments: TAKE FOUR CAPSULES BY MOUTH PER MEAL AND 2-3 PER SNACK (15 PER DAY) Rx Instructions: 4 caps orally with meals; potassium chloride 20 mEq tablet,ER particles/crystals 20 meq PO BID Patient Comments: TAKE ONE TABLET BY MOUTH TWICE A DAY levofloxacin 750 mg tablet Patient Comments: TAKE ONE TABLET BY MOUTH EVERY MORNING X30 HPI General Date/Time Provider Initiated Documentation: 11/09/23 12:28 . HPI Narrative: 53 year-old male presents to ED today by POV/ambulating with a chief complaint of of dark stool this morning- about one hour prior to arrival, dark red blood in stool. Quality described as dizziness, lightheaded, denies abdominal pain, no radiation to syncope, chest pain- BP initially soft in triage but improved in ED room. Severity is described as severe. Palliating factors include nothing specific. Provoking factors include nothing specific. Events leading up to the incident/Associated Symptoms: Patient has pancreatic cancer with pancreatic stent, has baseline hypertension, diabetes. Patient not anticoagulated. Related Data Home Medications Medication Instructions Recorded Confirmed albuterol sulfate 90 mcg/actuation 2 puff inhalation Q6H PRN 03/27/22 11/09/23 aerosol inhaler insulin glargine 100 unit/mL (3 10 unit subcut QPM 03/27/22 11/09/23 mL) subcutaneous pen (Lantus Solostar U-100 Insulin) metformin 500 mg tablet 500 mg PO BID 03/27/22 11/09/23 empagliflozin 10 mg tablet 10 mg PO ONCE 06/04/23 11/09/23 (Jardiance) morphine 15 mg tablet,extended 15 mg PO Q12H 06/04/23 11/09/23 release oxycodone 10 mg tablet 10 mg PO Q4H PRN 06/04/23 11/09/23 imnggl-[id number]-ednkblg 4 cap PO .COMPLEX 07/31/23 11/09/23 24,000-76,000-120,000 unit capsule,delayed rel (Creon) potassium chloride 20 mEq 20 meq PO BID 07/31/23 11/09/23 tablet,extended release(part/cryst) sennosides 8.6 mg tablet (senna) 8.6 mg PO DAILY 07/31/23 11/09/23 levofloxacin 750 mg tablet mg 11/09/23 Allergies Allergy/AdvReac Type Severity Reaction Status Date / Time diphenhydramine Allergy Anaphylaxis Unverified 11/09/23 12:35 General Stated Complaint: GI Bleed SHANNON: 2 Review of Systems All systems reviewed & are unremarkable except as noted in HPI and below Exam Narrative Exam Narrative: GENERAL APPEARANCE: Cachectic, non-toxic, awake and alert, atraumatic, no acute distress. SKIN: Warm, pale, dry, intact, without rashes/lesions/ulcerations. HEAD: Normocephalic, atraumatic, normal hair distribution for gender/age. EYES: Normal conjunctiva, no exudates on lids/lashes. ENT: Nares patent, no circumoral cyanosis, no facial swelling NECK: Supple, trachea midline, painless cervical ROM. LUNGS/CHEST: Lungs CTA bilaterally- no rhonchi/rales/wheezes diffusely, non- labored respirations, normal A/P diameter, symmetrical expansion, no chest wall deformity HEART (CV/PV): Regular rate and rhythm without murmur, no peripheral edema, no JVD. ABDOMEN: Soft, non-distended, no guarding, mild diffuse tenderness, no rebound tenderness, no CVA tenderness to percussion, negative Gallagher's sign. CHRIS: no annmarie blood on CHRIS MSK: Normal ROM, no swelling/deformity to bilateral UEs or LEs, moving all extremities without weakness, no cyanosis, spine midline without tenderness, normal curvature. NEURO: Mental Status AAOx4 - alert to person, place, time, events No facial droop, no forehead involvement. Motor: No focal weakness - strength 5/5 in bilateral UEs and LEs, proximal and distal, symmetric. Sensory: sensation intact to light touch globally. Gait NT. PSYCH: euthymic, cooperative, pleasant, appropriate speech Course Vital Signs Vital signs: Vital Signs Temperature 36.7 C 11/09/23 12:22 Pulse 68 11/09/23 12:22 Respiratory Rate 16 11/09/23 12:22 Blood Pressure 87/62 L 11/09/23 12:22 Pulse Oximetry 100 11/09/23 12:22 Temperature 36.7 C 11/09/23 12:22 Temperature Source Temporal Artery Scan 11/09/23 12:22 Pulse 68 11/09/23 12:22 Respiratory Rate 16 11/09/23 12:22 Blood Pressure 87/62 L 11/09/23 12:22 Blood Pressure Position Supine 11/09/23 12:22 Pulse Oximetry 100 11/09/23 12:22 Oxygen Delivery Method Room Air 11/09/23 12:22 Oxygen Flow Rate 0 11/09/23 12:22 Medical Decision Making This dictation utilizes [id number] dictation software and may contain unedited grammatical errors. 53 year-old male presents to ED today by POV/ambulating with a chief complaint of of dark stool this morning- about one hour prior to arrival, dark red blood in stool. Quality described as dizziness, lightheaded, denies abdominal pain, no radiation to syncope, chest pain- BP initially soft in triage but improved in ED room. Severity is described as severe. Palliating factors include nothing specific. Provoking factors include nothing specific. Events leading up to the incident/Associated Symptoms: Patient has pancreatic cancer with pancreatic stent, has baseline hypertension, diabetes. Patients' medical history: Pancreati c cancer, recently finished radiation treatment less than 1 week ago, most recent chemo was in September, hypertension, asthma, hypertension, diabetes. Family and social history: Lives with , no recent travel, no sick contacts. Pertinent exam findings / vital signs include no annmarie blood on CHRIS, diffuse mild abdominal tenderness without focal peritoneal signs, negative Gallagher's, mildly hypotensive. Differential / pathologies of concern include GI bleeding, gastritis, diverticulitis, gastroenteritis, unlikely perforated viscus. Diagnostic studies of: -CBC, BMP, type and screen, CK, troponin, lipase, liver panel, magnesium, CRP/ESR, PT/PTT, BNP, lactate, procalcitonin, XR ABD KUB. -CBC shows anemia 9.1, baseline 10- repeat after 500mL fluids and q2hr is 7.9- significant drop of GI bleeding > need transfer for definitive CTA and likely urgent EGD/colonoscopy -BMP shows hypokalemia 3.0 -Magnesium mildly low at 1.7 -CRP mildly elevated 1.83, ESR 24 -Lipase within normal limits -BNP negative, Trope negative -Benign LFTs -Lactate normal, procalcitonin <0.1 - do not suspect sepsis -UA sample not given -Type and screen: A+, Ab screen neg > immune compromised would need irradiated blood -XR ABD no obstructive pattern, PA chest no acute pathology Interventions of: -initiating 1 unit A POS, Potassium repletion IV, Magnesium 1gm IV. Patient got 10mg IV Morphine, takes baseline 15mg PO BID +oxycodone q4hr PRN. ED Course/Assessment/Plan: 53-year-old male with recent completion of round of radiation therapy for her known pancreatic cancer presents with acute GI bleeding starting this morning about 1 hour prior to arrival having a large dark red bloody stool and feeling nauseous and dizzy. He is immune compromised, his hemoglobin initially was 9.1 with a baseline of 10 with a an acute drop to 7.9 in a matter of 2 hours after receiving only 500 mL fluid bolus, he was hypotensive on arrival 80s over 60s, still remains soft [address] scanner is down at [facility] for the remainder of at least today and I think the patient does need urgent transfer for CTA to assess for GI hemorrhage. He likely needs urgent EGD/colonoscopy. He was repleted with potassium, he has no signs of sepsis or infection, is receiving 1 unit of irradiated packed red blood cells. [place] [facility] [place] ED [place] in order for the patient to to obtain definitive CTA and likely urgent EGD/colonoscopy @ 1445. Excepted for ED to ED transfer at 1530 Dr. Pierce. Disposition of GI Bleeding. Patient verbalized understanding of the plan and return to ED criteria and engaged in shared decision making. Medical Records Medical records reviewed: Yes I reviewed the patient's medical records. Imaging Data Radiologic Study: Attestation: I personally reviewed and interpreted this imaging study as follows: Imaging: X-Ray Radiologist's impression: XR ABD FLAT UPRIGHT PA CHEST EXAM: 2D digital imaging was performed. CLINICAL HISTORY: dark stools. COMPARISON: CR XR ABDOMEN FLAT PLATE from 06/04/2023 CR XR CHEST 2V PA LATERAL from 07/31/[address] ABDOMEN PELVIS W from 07/31/2023 TECHNIQUE: Supine and upright abdomen and PA chest views were performed. Four images were obtained. FINDINGS: MEDIASTINUM: Normal. HEART: Normal. PULMONARY VASCULATURE: Normal. LUNGS: No focal consolidating infiltrates. PLEURAL SPACE: No pleural effusion or pneumothorax. BONE:Within normal limits for the patient's age. OTHER FINDINGS:The indwelling central venous catheter is again seen. The tip is in good position in the superior vena cava. BOWEL GAS PATTERN: Nondistended. FREE AIR: None. CALCIFICATIONS: No radiopaque calcifications. OSSEOUS STRUCTURES: Normal for age. OTHER FINDINGS: Biliary stents are again seen in the right upper quadrant. A 2nd stent has been placed in the right upper quadrant since the prior examinations. IMPRESSION: 1. Nonobstructive bowel gas pattern. 2. No acute pulmonary process. Lab Data Lab results reviewed: Yes I reviewed the patient's lab results. Labs: Laboratory Tests Range/Units 11/09/23 11/09/23 11/09/23 12:46 12:46 12:56 WBC (4.4-10.8) 10^3/uL 5.62 RBC (4.36-5.78) 10^6/uL 3.71 L Hgb (13.5-17.5) g/dL 9.1 L Hct (40.0-50.0) % 29.4 L MCV (80-95) fL 79 L MCH (27.0-33.0) pg 24.5 L MCHC (32.0-36.0) % 31.0 L RDW (11.8-14.1) % 16.7 H Plt Count (130-400) 10^3/uL 90 L MPV (8.0-11.0) fL 10.3 Immature Gran % % 0.4 Neutrophils % % 89.7 Lymphocytes % % 1.4 Monocytes % % 7.1 Eosinophils % % 1.4 Basophils % % 0.0 Nucleated RBC % (0.0-0.3) % 0.0 Absolute Neutrophils (1.2-6.7) 10^3/uL 5.04 Absolute Lymphocytes (1.2-3.4) 10^3/uL 0.08 L Absolute Monocytes (0.1-0.8) 10^3/uL 0.40 Absolute Eosinophils (0.0-0.7) 10^3/uL 0.08 Absolute Basophils (0.0-0.2) 10^3/uL 0.00 RBC Morphology Normal ESR (0-20) mm/hr 24 H PT (9.1-11.1) sec 12.0 H INR (0.9-1.1) 1.2 H APTT (23.6-32.8) sec 27.6 VBG Lactate (0.6-1.4) mmol/L 1.0 Sodium (136-145) mmol/L 139 Potassium (3.5-5.1) mmol/L 3.0 L Chloride (98-107) mmol/L 104 Carbon Dioxide (21.0-32.0) mmol/L 26.8 Anion Gap (3-11) mmol/L 8.2 BUN (7-18) mg/dL 11 Creatinine (0.70-1.30) mg/dL 0.8 Est GFR (CKD-EPI 2020) (mL/min/1.73m2) 104.51 Glucose (74-106) mg/dL 204 H Calcium (8.5-10.1) mg/dL 8.0 L Magnesium (1.8-2.4) mg/dL 1.7 L Total Bilirubin (0.2-1.0) mg/dL 0.65 Conjugated Bilirubin (0.0-0.2) mg/dL 0.2 AST (15-37) U/L 17 ALT (16-63) U/L 22 Alkaline Phosphatase (46-116) U/L 69 Creatine Kinase (39-308) U/L 76 Troponin I (< or =60) ng/L < 50 C-Reactive Protein (<or=0.5) mg/dL 1.83 H Cancelled NT-Pro-B Natriuret Pep (<300) pg/mL 44 Total Protein (6.4-8.2) g/dL 6.7 Albumin (3.4-5.0) g/dL 2.9 L Lipase (16-77) U/L < 10 L Procalcitonin ng/mL < 0.1 ABO/Rh A Positive Antibody Screen NEGATIVE Range/Units 11/09/23 14:25 WBC (4.4-10.8) 10^3/uL RBC (4.36-5.78) 10^6/uL Hgb (13.5-17.5) g/dL 7.9 L Hct (40.0-50.0) % 25.5 L MCV (80-95) fL MCH (27.0-33.0) pg MCHC (32.0-36.0) % RDW (11.8-14.1) % Plt Count (130-400) 10^3/uL MPV (8.0-11.0) fL Immature Gran % % Neutrophils % % Lymphocytes % % Monocytes % % Eosinophils % % Basophils % % Nucleated RBC % (0.0-0.3) % Absolute Neutrophils (1.2-6.7) 10^3/uL Absolute Lymphocytes (1.2-3.4) 10^3/uL Absolute Monocytes (0.1-0.8) 10^3/uL Absolute Eosinophils (0.0-0.7) 10^3/uL Absolute Basophils (0.0-0.2) 10^3/uL RBC Morphology ESR (0-20) mm/hr PT (9.1-11.1) sec INR (0.9-1.1) APTT (23.6-32.8) sec VBG Lactate (0.6-1.4) mmol/L Sodium (136-145) mmol/L Potassium (3.5-5.1) mmol/L Chloride (98-107) mmol/L Carbon Dioxide (21.0-32.0) mmol/L Anion Gap (3-11) mmol/L BUN (7-18) mg/dL Creatinine (0.70-1.30) mg/dL Est GFR (CKD-EPI 2020) (mL/min/1.73m2) Glucose (74-106) mg/dL Calcium (8.5-10.1) mg/dL Magnesium (1.8-2.4) mg/dL Total Bilirubin (0.2-1.0) mg/dL Conjugated Bilirubin (0.0-0.2) mg/dL AST (15-37) U/L ALT (16-63) U/L Alkaline Phosphatase (46-116) U/L Creatine Kinase (39-308) U/L Troponin I (< or =60) ng/L C-Reactive Protein (<or=0.5) mg/dL NT-Pro-B Natriuret Pep (<300) pg/mL Total Protein (6.4-8.2) g/dL Albumin (3.4-5.0) g/dL Lipase (16-77) U/L Procalcitonin ng/mL ABO/Rh Antibody Screen Quality:SDOH Health Related Social Needs: No Data to Display PFSH All Active Problems (Updated 11/09/23 @ 15:39 by ASA Romano) GI bleeding (Chronic) Abnormal weight loss (Acute) Asthma (Chronic) Hypertension (Chronic) Diabetes (Chronic) Screening for colon cancer (Acute) Abrasion, corneal (Acute) Eye foreign body (Acute) Social History Smoking/Tobacco Use Status: Former Tobacco Use Smoking risk assessment performed?: Yes Alcohol Intake: current Alcohol Intake frequency: a few times a month Drug use: Never Substance use type: does not use Housing: house Do you feel safe at home: Yes Do you feel safe in your relationship?: Yes
[2023-11-09 12:56] LABS: Abs Immature Grans 0.02 10^3/uL (0.0-0.06); Absolute Eosinophil Count 0.08 10^3/uL (0.0-0.7); Absolute Lymphocyte Count 0.08 10^3/uL (1.2-3.4); Absolute Neutrophil Count 5.04 10^3/uL (1.2-6.7); Eosinophils % 1.4 %; HCT 29.4 % (40.0-50.0); HGB 9.1 g/dL (13.5-17.5); Immature Grans % 0.4 %; Lymphocytes % 1.4 %; MCH 24.5 pg (27.0-33.0); MCV 79 fL (80-95); MPV 10.3 fL (8.0-11.0); Monocytes % 7.1 %; Neutrophils % 89.7 %; RBC 3.71 10^6/uL (4.36-5.78); RDW 16.7 % (11.8-14.1); RDW-SD 47.1 fL; WBC 5.62 10^3/uL (4.4-10.8)
[2023-11-09 12:59] LABS: ESR 24 mm/hr (0-20)
[2023-11-09 13:14] LABS: Diff Comment Diff Reviewed; Platelet Count 90 10^3/uL (130-400); RBC Morphology Normal
[2023-11-09 13:16] LABS: INR 1.2 (0.9-1.1); PTT Activated 27.6 sec (23.6-32.8)
[2023-11-09 13:22] LABS: ALT 22 U/L (16-63); AST 17 U/L (15-37); Albumin 2.9 g/dL (3.4-5.0); Alkaline Phosphatase 69 U/L (46-116); Anion Gap 8.2 mmol/L (3-11); BUN 11 mg/dL (7-18); Bilirubin, Direct 0.2 mg/dL (0.0-0.2); Bilirubin, Total 0.65 mg/dL (0.2-1.0); C-Reactive Protein 1.83 mg/dL (<or=0.5); CO2 26.8 mmol/L (21.0-32.0); CREATININE 0.8 mg/dL (0.70-1.30); Chloride 104 mmol/L (98-107); Creatine Kinase 76 U/L (39-308); Estimated GFR 104.51 (mL/min/1.73m2); Glucose 204 mg/dL (74-106); Lipase < 10 U/L (16-77); Magnesium 1.7 mg/dL (1.8-2.4); NT-proBNP 44 pg/mL (<300); Sodium 139 mmol/L (136-145); Total Protein 6.7 g/dL (6.4-8.2); Troponin I < 50 ng/L (< or =60)
[2023-11-09 13:32] LABS: Procalcitonin < 0.1 ng/mL
[2023-11-09] MEDS: Normal Saline 500 ML IV (13:45)
[2023-11-09 14:33] LABS: HCT 25.5 % (40.0-50.0); HGB 7.9 g/dL (13.5-17.5)
[2023-11-09] MEDS: MORPHine 10 MG/ML VIAL IVP (14:57)
[2023-11-09] MEDS: MAGNESIUM SULFATE 1 GM/100 ML BAG IVINF (15:18)
[2023-11-09] MEDS: POTASSIUM CHLORIDE 20 MEQ/100 ML BAG 50 MEQ IVINF (15:23)
== END 2023-11-09 17:15 | disposition short-term general hospital (02) ==
PROVIDERS: Emergency Provider Physician Assistant; PCP Family Medicine
DX: K92.2 Gastrointestinal hemorrhage, unspecified (principal); E11.9 Type 2 diabetes mellitus without complications; Z79.4 Long term (current) use of insulin; Z79.84 Long term (current) use of oral hypoglycemic drugs; Z87.891 Personal history of nicotine dependence
CPT/HCPCS: 36430; 80048; 80076; 82550; 83690; 84145; 85652; 86850; 86900; 86901; 86920; 86945; 93005; 96361; 96365; 96375; 99285; 74022; 83605; 83735; 83880; 84484; 85014; 85018; 85025; 85610; 85730; 86140; 93010; J2270; J3475; J3480; P9016

== ENCOUNTER 2023-12-04 00:46 | Outpatient (RCR) | payer BC, SELFPAY ==
[2023-11-16 00:03] VITALS: BP 123/81; PULSE 80; RESP 16; TEMP 36.2
[2023-11-20] MEDS: Normal Saline Flush 10 ML SYR IVP (12:39)
[2023-11-20 13:01] LABS: Abs Immature Grans 0.04 10^3/uL (0.0-0.06); Absolute Basophil Count 0.01 10^3/uL (0.0-0.2); Absolute Eosinophil Count 0.07 10^3/uL (0.0-0.7); Absolute Lymphocyte Count 0.21 10^3/uL (1.2-3.4); Absolute Monocyte Count 0.32 10^3/uL (0.1-0.8); Absolute Neutrophil Count 4.15 10^3/uL (1.2-6.7); Basophils % 0.2 %; Eosinophils % 1.5 %; HGB 9.7 g/dL (13.5-17.5); Immature Grans % 0.8 %; Lymphocytes % 4.4 %; MCH 26.8 pg (27.0-33.0); MCHC 32.3 % (32.0-36.0); MCV 83 fL (80-95); MPV 9.7 fL (8.0-11.0); Monocytes % 6.7 %; Neutrophils % 86.4 %; Platelet Count 118 10^3/uL (130-400); RBC 3.62 10^6/uL (4.36-5.78); RDW 17.2 % (11.8-14.1); RDW-SD 52.1 fL
[2023-11-20 13:19] LABS: ALT 21 U/L (16-63); AST 15 U/L (15-37); Albumin 2.5 g/dL (3.4-5.0); Alkaline Phosphatase 80 U/L (46-116); Anion Gap 4.7 mmol/L (3-11); BUN 8 mg/dL (7-18); Bilirubin, Total 0.43 mg/dL (0.2-1.0); CO2 29.3 mmol/L (21.0-32.0); CREATININE 0.8 mg/dL (0.70-1.30); Chloride 103 mmol/L (98-107); Estimated GFR 104.51 (mL/min/1.73m2); Glucose 197 mg/dL (74-106); Potassium 3.5 mmol/L (3.5-5.1); Sodium 137 mmol/L (136-145); Total Protein 6.5 g/dL (6.4-8.2)
[2023-11-23 09:13] LABS: CA 19-9 302 U/mL (<35)
[2023-12-04 14:09] LABS: Abs Immature Grans 0.03 10^3/uL (0.0-0.06); Absolute Basophil Count 0.01 10^3/uL (0.0-0.2); Absolute Eosinophil Count 0.49 10^3/uL (0.0-0.7); Absolute Lymphocyte Count 0.29 10^3/uL (1.2-3.4); Absolute Monocyte Count 0.22 10^3/uL (0.1-0.8); Absolute Neutrophil Count 2.99 10^3/uL (1.2-6.7); Basophils % 0.2 %; Eosinophils % 12.2 %; HCT 29.3 % (40.0-50.0); HGB 9.6 g/dL (13.5-17.5); Immature Grans % 0.7 %; Lymphocytes % 7.2 %; MCHC 32.8 % (32.0-36.0); MCV 83 fL (80-95); Monocytes % 5.5 %; Neutrophils % 74.2 %; Platelet Count 141 10^3/uL (130-400); RBC 3.55 10^6/uL (4.36-5.78); RDW 18.3 % (11.8-14.1); RDW-SD 55.2 fL; WBC 4.03 10^3/uL (4.4-10.8)
[2023-12-04 14:25] LABS: ALT 28 U/L (16-63); AST 16 U/L (15-37); Albumin 2.7 g/dL (3.4-5.0); Alkaline Phosphatase 98 U/L (46-116); BUN 8 mg/dL (7-18); Bilirubin, Total 0.45 mg/dL (0.2-1.0); Calcium 8.2 mg/dL (8.5-10.1); Chloride 104 mmol/L (98-107); Estimated GFR 88.88 (mL/min/1.73m2); Glucose 158 mg/dL (74-106); Potassium 3.6 mmol/L (3.5-5.1); Sodium 141 mmol/L (136-145); Total Protein 7.5 g/dL (6.4-8.2)
[2023-12-04] MEDS: Normal Saline Flush 10 ML SYR IVP (14:33)
[2023-12-04 23:54] LABS: CA 19-9 345 U/mL (<35)
== END 2023-12-16 23:59 | disposition home or self-care (01) ==
LOC: INF 00:46
PROVIDERS: Nurse Practitioner Family; PCP Family Medicine; Visit Provider Internal Medicine Hematology & Oncology
DX: C25.0 Malignant neoplasm of head of pancreas (principal); Z45.2 Encounter for adjustment and management of vascular access device
CPT/HCPCS: 36591; 80053; 85025; 86301

== ENCOUNTER 2023-12-22 21:13 | Outpatient (REF) | payer BC, SELFPAY ==
[2023-12-22 22:55] LABS: C Diff PCR Negative (Negative)
== END 2023-12-22 21:14 | disposition home or self-care (01) ==
LOC: LBN 21:13
PROVIDERS: PCP Family Medicine; Visit Provider Internal Medicine Hematology & Oncology
DX: C25.0 Malignant neoplasm of head of pancreas (principal)
CPT/HCPCS: 87493

== ENCOUNTER 2024-01-04 14:09 | Emergency (ER) | payer BC, SELFPAY ==
[2024-01-04 14:14] VITALS: BP 130/81; PULSE 97; RESP 16; TEMP 36.9; O2SAT 98
[2024-01-04] MEDS: HYDROmorphone 2 MG/ML SYR IVP ×2 (16:54→17:32)
[2024-01-04] MEDS: Ondansetron 4 MG/2 ML VIAL IVP (16:55)
[2024-01-04 17:06] LABS: Abs Immature Grans 0.02 10^3/uL (0.0-0.06); Absolute Eosinophil Count 0.05 10^3/uL (0.0-0.7); Absolute Lymphocyte Count 0.21 10^3/uL (1.2-3.4); Absolute Monocyte Count 0.29 10^3/uL (0.1-0.8); Absolute Neutrophil Count 4.33 10^3/uL (1.2-6.7); HCT 27.3 % (40.0-50.0); HGB 8.3 g/dL (13.5-17.5); Immature Grans % 0.4 %; Lymphocytes % 4.3 %; MCH 25.9 pg (27.0-33.0); MCHC 30.4 % (32.0-36.0); MCV 85 fL (80-95); MPV 10.3 fL (8.0-11.0); Monocytes % 5.9 %; Neutrophils % 88.4 %; Platelet Count 110 10^3/uL (130-400); RBC 3.21 10^6/uL (4.36-5.78); RDW 17.8 % (11.8-14.1); RDW-SD 55.9 fL
[2024-01-04 17:19] LABS: ALT 101 U/L (16-63); AST 180 U/L (15-37); Albumin 2.5 g/dL (3.4-5.0); Alkaline Phosphatase 334 U/L (46-116); Anion Gap 5.6 mmol/L (3-11); BUN 10 mg/dL (7-18); Bilirubin, Total 0.54 mg/dL (0.2-1.0); CO2 28.4 mmol/L (21.0-32.0); CREATININE 0.9 mg/dL (0.70-1.30); Chloride 105 mmol/L (98-107); Estimated GFR 100.86 (mL/min/1.73m2); Glucose 168 mg/dL (74-106); Potassium 3.9 mmol/L (3.5-5.1); Sodium 139 mmol/L (136-145); Total Protein 7.6 g/dL (6.4-8.2)
[2024-01-04] MEDS: Omnipaque 350 MG/ML 100 ML BTL IJ (18:52)
[2024-01-04] MEDS: Normal Saline - Diluent 50 ML VIAL IJ (18:54)
--- NOTE | 2024-01-04 18:55 | DI.CT_ITS ---
Exam(s) CT ABDOMEN PELVIS W EXAM: CT ABDOMEN PELVIS W CLINICAL HISTORY: LLQ ABD PAIN, REDUCED HERNIA TECHNIQUE: Imaging Protocol: Axial computed tomography images with coronal and sagittal reformatted images were created and reviewed. CONTRAST MATERIAL: Intravenous: Omnipaque 350 Contrast volume:100 mL Oral: No COMPARISON: CT CT ABDOMEN PELVIS W from 07/31/[address] CHEST W from 08/12/2023 FINDINGS: The examination is limited due to patient motion artifact. ABDOMEN: Lung Bases: There are small bilateral pleural effusions, left greater than right. Gastroesophageal v arices are present. Liver: The patient has a TIPS. There is hypodense material in the midportion of the tips suspicious for thrombus. No measurable mass. Portal, Superior Mesenteric, and Splenic Veins: The distal splenic vein is patent as is the distal valentin perior mesenteric vein. There is a TIPS in place. Gallbladder and Biliary Tract: There is a biliary stent with pneumobilia seen in the liver. No stone s are seen in the gallbladder. Pancreas: There is atrophy of the body of the pancreas. The pancreatic head is heterogeneous with ar eas of air seen within the head. This may represent necrosis or abscess. This is in the area of the previous in the seen pancreatic head mass. The patient has a known history of pancreatic carcinoma. Spleen: Splenomegaly. Adrenals: No masses seen. Kidneys: Normal size, contour and axis. No radiodense stones or obstructive uropathy. No masses seen. Abdominal Aorta: Abdominal portion non-dilated. Bowel: There has been interval placement of a stent extending from the distal stomach into the duoden um. There is mild wall thickening seen in the ascending colon and proximal transverse colon. There is also mild wall thickening in loops of small bowel. This may be secondary to hepatic dysfunction. Enterocolitis should also be considered. There is no evidence of bowel obstruction. No evidence of appendicitis. Peritoneal Cavity: There is a large amount of abdominal pelvic ascites. There are varices in the upp er abdomen. No free air. Lymph Nodes: Within normal limits. Bones: Within normal limits for the patient's age. Soft Tissues: There is a left inguinal hernia containing fluid. PELVIS: Bladder: Urinary bladder is distended but grossly unremarkable. Reproductive Organs: Unremarkable as visualized. Lymph Nodes: Within normal limits. Bones: Within normal limits for the patient's age. IMPRESSION: 1. Since the prior examination the patient has had a TIPS placed. There is hypodense material seen i n the central TIPS which may represent thrombosis. 2. Since prior examination of patient has also had a stent placed in the distal stomach and duodenum. 3. Findings of hepatic cirrhosis and splenomegaly with a large amount of abdominal ascites and gastro esophageal and abdominal varices. 4. Bowel wall thickening involving both large and small bowel loops which may reflect hepatic dysfunc tion. Enterocolitis cannot be excluded. 5. Heterogeneity of the pancreatic head. Foci of air are seen now seen in the pancreatic head. This may represent necrosis of the pancreatic mass or abscess. 6. Bilateral pleural effusions, left greater than right. 7. Left inguinal hernia containing fluid. 8. Findings were discussed with Dr. Turner at 7:26 p.m. on 01/04/2024. RADIATION DOSE DELIVERED: Total DLP DATA REPOSITORY: All CT scans at this facility are submitted to the National Radiology Data Registry (NRDR) Dose Index Registry (DIR) with the [employer] ([employer]). RADIATION OPTIMIZATION: All CT scans at this facility use at least one of these dose optimization te chniques: automated exposure control; mA and/or kV adjustment per patient size (includes targeted exa ms where dose is matched to clinical indication); or iterative reconstruction.
--- NOTE | 2024-01-04 20:55 | ED.GENADUL_ITS ---
Discharge Plan Disposition Patient Disposition: Home Discharge Details Clinical Impression: Abdominal pain, Hernia, inguinal, left, Metastasis from pancreatic cancer Primary Care Provider: Zohaib Camargo ED Provider: Little Turner Home Meds and New Rx's Prescriptions: No Action albuterol sulfate 90 mcg/actuation HFA aerosol inhaler 2 puff inhalation Q6H PRN metformin 500 mg tablet 500 mg PO BID insulin glargine [Lantus Solostar U-100 Insulin] 100 unit/mL (3 mL) insulin pen 10 unit subcut QPM morphine 15 mg tablet extended release 15 mg PO Q12H Patient Comments: TAKE ONE TABLET BY MOUTH TWICE A DAY oxycodone 10 mg tablet 10 mg PO Q4H PRN Patient Comments: TAKE 1-2 TABLETS BY MOUTH EVERY 4 HOURS NEEDED FOR PAIN Jardiance 10 mg tablet 10 mg PO ONCE Patient Comments: TAKE ONE TABLET BY MOUTH EVERY DAY sennosides [senna] 8.6 mg tablet 8.6 mg PO DAILY Patient Comments: TAKE ONE TABLET BY MOUTH TWICE A DAY Creon 24,000-76,000 -120,000 unit capsule,delayed release(DR/EC) 4 cap PO .COMPLEX Patient Comments: TAKE FOUR CAPSULES BY MOUTH PER MEAL AND 2-3 PER SNACK (15 PER DAY) Rx Instructions: 4 caps orally with meals; potassium chloride 20 mEq tablet,ER particles/crystals 20 meq PO BID Patient Comments: TAKE ONE TABLET BY MOUTH TWICE A DAY levofloxacin 750 mg tablet Patient Comments: TAKE ONE TABLET BY MOUTH EVERY MORNING X30 Discharge Instructions Additional Instructions: * CONTINUE HOME MEDICATIONS AND COORDINATE WITH YOUR ONCOLOGY TEAM * IF YOU HAVE PAIN AT THE HERNIA SITE, TRY GENTLE PRESSURE TO REDUCE, IF IT DOESN'T REDUCE, COME TO ER FOR RE-EVALUATION HPI General Date/Time Provider Initiated Documentation: 01/04/24 14:22 . Limitations to Documentation: no limitations . Information obtained by: patient and family . HPI Narrative: 53-year-old gentleman with past medical history of metastatic pancreatic cancer on therapy followed by [facility] oncology presents for evaluation of severe abdominal pain. Patient reports that the pain is localized to the left lower abdomen. It is associated with a lump on that side. He reports that he has a known hernia on the right side. That this lump on the left side is new. It has been there for 3 days. It is very uncomfortable and not being well followed by his home pain medication. Not associated with fever vomiting or diarrhea. Related Data Home Medications ?Medication ?Instructions ?Recorded ?Confirmed albuterol sulfate 90 mcg/actuation 2 puff inhalation Q6H PRN 03/27/22 11/09/23 aerosol inhaler insulin glargine 100 unit/mL (3 10 unit subcut QPM 03/27/22 11/09/23 mL) subcutaneous pen (Lantus Solostar U-100 Insulin) metformin 500 mg tablet 500 mg PO BID 03/27/22 11/09/23 empagliflozin 10 mg tablet 10 mg PO ONCE 06/04/23 11/09/23 (Jardiance) morphine 15 mg tablet,extended 15 mg PO Q12H 06/04/23 11/09/23 release oxycodone 10 mg tablet 10 mg PO Q4H PRN 06/04/23 11/09/23 [id number] 4 cap PO .COMPLEX 07/31/23 11/09/23 24,000-76,000-120,000 unit capsule,delayed rel (Creon) potassium chloride 20 mEq 20 meq PO BID 07/31/23 11/09/23 tablet,extended release(part/cryst) sennosides 8.6 mg tablet (senna) 8.6 mg PO DAILY 07/31/23 11/09/23 levofloxacin 750 mg tablet mg 11/09/23 Allergies Allergy/AdvReac Type Severity Reaction Status Date / Time diphenhydramine Allergy Anaphylaxis Unverified 01/04/24 14:20 General Stated Complaint: Abd Prob SHANNON: 2 Exam Narrative Exam Narrative: Review of Systems: All systems reviewed & are unremarkable except as noted in HPI and below Cachectic, chronically ill-appearing, appears very uncomfortable NCAT RRR Unlabored respiratory effort Distended abdomen, firm but not rigid, right lower quadrant inguinal hernia reducible, left lower quadrant hernia is firm but reducible with gentle pressure Course Vital Signs Vital signs: Vital Signs Temperature 36.9 C 01/04/24 14:14 Pulse 97 H 01/04/24 14:14 Respiratory Rate 16 01/04/24 14:14 Blood Pressure 130/81 01/04/24 14:14 Pulse Oximetry 98 01/04/24 14:14 Temperature 36.9 C 01/04/24 14:14 Temperature Source Temporal Artery Scan 01/04/24 14:14 Pulse 97 H 01/04/24 14:14 Respiratory Rate 16 01/04/24 14:14 Respiratory Effort Normal 01/04/24 20:07 Blood Pressure 130/81 01/04/24 14:14 Pulse Oximetry 98 01/04/24 14:14 Oxygen Delivery Method Room Air 01/04/24 14:14 Oxygen Flow Rate 0 01/04/24 14:14 Pain Level 9 01/04/24 14:14 Lab/Test Results Lab/Test Results: Laboratory Tests Range/Units 01/04/24 01/04/24 01/04/24 16:43 16:57 19:43 WBC (4.4-10.8) 10^3/uL 4.90 RBC (4.36-5.78) 10^6/uL 3.21 L Hgb (13.5-17.5) g/dL 8.3 L Hct (40.0-50.0) % 27.3 L MCV (80-95) fL 85 MCH (27.0-33.0) pg 25.9 L MCHC (32.0-36.0) % 30.4 L RDW (11.8-14.1) % 17.8 H Plt Count (130-400) 10^3/uL 110 L MPV (8.0-11.0) fL 10.3 Immature Gran % % 0.4 Neutrophils % % 88.4 Lymphocytes % % 4.3 Monocytes % % 5.9 Eosinophils % % 1.0 Basophils % % 0.0 Nucleated RBC % (0.0-0.3) % 0.0 Absolute Neutrophils (1.2-6.7) 10^3/uL 4.33 Absolute Lymphocytes (1.2-3.4) 10^3/uL 0.21 L Absolute Monocytes (0.1-0.8) 10^3/uL 0.29 Absolute Eosinophils (0.0-0.7) 10^3/uL 0.05 Absolute Basophils (0.0-0.2) 10^3/uL 0.00 Sodium (136-145) mmol/L 139 Potassium (3.5-5.1) mmol/L 3.9 Chloride (98-107) mmol/L 105 Carbon Dioxide (21.0-32.0) mmol/L 28.4 Anion Gap (3-11) mmol/L 5.6 BUN (7-18) mg/dL 10 Creatinine (0.70-1.30) mg/dL 0.9 Est GFR (CKD-EPI 2020) (mL/min/1.73m2) 100.86 Glucose (74-106) mg/dL 168 H Calcium (8.5-10.1) mg/dL 9.0 Magnesium Cancelled Total Bilirubin (0.2-1.0) mg/dL 0.54 AST (15-37) U/L 180 H ALT (16-63) U/L 101 H Alkaline Phosphatase (46-116) U/L 334 H Troponin I Cancelled Cancelled Total Protein (6.4-8.2) g/dL 7.6 Albumin (3.4-5.0) g/dL 2.5 L Medical Decision Making Emergent evaluation of abdominal pain. Patient has severe metastatic disease. On initial examination, he appeared very uncomfortable and did have a noted left inguinal hernia that I was able to reduce with some gentle pressure. IV narcotic pain medication was provided. Lab work was reviewed. Anemia of 8.3 noted, but no significant change from prior, his LFTs are slightly uptrending. His bilirubin is not elevated. A CT scan was obtained. Discussed with the radiologist and compared to prior imaging both CT and MRI that have been obtained at [facility]. The imaging reports from the outside images do not demonstrate a significant change in respect to the CT that was obtained tonight. After the IV medication, on reevaluation the patient is sitting up in bed feeling fine and reports that his pain is resolved. He has very close follow-up scheduled with his oncology team as there following him closely for the multiple abnormalities noted on the CT scan. Return precautions advised. Recommend follow-up and reevaluation with oncology team as soon as possible for close monitoring of the LFTs and further reevaluation of abdominal pain Medical Records Medical records reviewed: Yes I reviewed the patient's medical records. Lab Data Lab results reviewed: Yes I reviewed the patient's lab results. Quality:SDOH Health Related Social Needs: No Data to Display PFSH All Active Problems Metastasis from pancreatic cancer (Acute) Hernia, inguinal, left (Acute) Abdominal pain (Acute) Abnormal weight loss (Acute) Asthma (Chronic) Hypertension (Chronic) Diabetes (Chronic) Screening for colon cancer (Acute) Abrasion, corneal (Acute) Eye foreign body (Acute) Social History Smoking/Tobacco Use Status: Former Tobacco Use Smoking risk assessment performed?: Yes Alcohol Intake: current Alcohol Intake frequency: a few times a month Drug use: Never Substance use type: does not use Housing: house Do you feel safe at home: Yes Do you feel safe in your relationship?: Yes
== END 2024-01-04 20:10 | disposition home or self-care (01) ==
PROVIDERS: Emergency Provider Emergency Medicine; PCP Family Medicine
DX: R10.32 Left lower quadrant pain (principal); K40.20 Bilateral inguinal hernia, without obstruction or gangrene, not specified as recurrent; C25.7 Malignant neoplasm of other parts of pancreas; C79.89 Secondary malignant neoplasm of other specified sites; I10 Essential (primary) hypertension; E11.9 Type 2 diabetes mellitus without complications; Z79.4 Long term (current) use of insulin; Z79.84 Long term (current) use of oral hypoglycemic drugs; Z87.891 Personal history of nicotine dependence
CPT/HCPCS: 36415; 80053; 96374; 96375; 96376; 99285; 74177; 83605; 83735; 84484; 85025; 99284; J1170; J2405; J3490

== ENCOUNTER 2024-01-06 22:18 | Emergency (ER) | payer BC, SELFPAY ==
[2024-01-06] VITALS (19 sets, daily range): BP systolic 86–127; BP diastolic 58–89; PULSE 111–139; RESP 12–22; TEMP 39.4; O2SAT 88–97
[2024-01-06 22:49] LABS: BE (Venous) 2 mmol/L (-2-3); HCO3 (Venous) 26 mmol/L (23-28); O2 Sat (Venous) 89 %; TCO2 (Venous) 24 mmol/L (24-29); pCO2 (Venous) 33 mmHg (41-51); pH (Venous) 7.49 (7.31-7.41); pO2 (Venous) 52 mmHg
[2024-01-06] MEDS: Lactated Ringers 1,000 ML 1000 ML IV ×2 (22:50→23:55)
[2024-01-06 22:52] LABS: Lactate 2.3 mmol/L (0.6-1.4)
[2024-01-06 22:53] LABS: Abs Immature Grans 0.03 10^3/uL (0.0-0.06); Absolute Basophil Count 0.02 10^3/uL (0.0-0.2); Absolute Lymphocyte Count 0.15 10^3/uL (1.2-3.4); Absolute Monocyte Count 0.19 10^3/uL (0.1-0.8); Absolute Neutrophil Count 5.05 10^3/uL (1.2-6.7); Basophils % 0.4 %; HCT 25.4 % (40.0-50.0); HGB 7.9 g/dL (13.5-17.5); Immature Grans % 0.6 %; Lymphocytes % 2.8 %; MCHC 31.1 % (32.0-36.0); MCV 84 fL (80-95); Monocytes % 3.5 %; Neutrophils % 92.7 %; Platelet Count 106 10^3/uL (130-400); RBC 3.04 10^6/uL (4.36-5.78); RDW 18.6 % (11.8-14.1); RDW-SD 56.9 fL; WBC 5.44 10^3/uL (4.4-10.8)
[2024-01-06 23:04] LABS: INR 1.3 (0.9-1.1); PTT Activated 35.2 sec (23.6-32.8); Prothrombin Time 12.6 sec (9.1-11.1)
[2024-01-06] MEDS: ACETAMINOPHEN 1,000 MG/100 ML BTL 400 MG IVPB (23:06)
[2024-01-06] MEDS: HYDROmorphone 2 MG/ML SYR 1 MG IVP (23:07)
[2024-01-06 23:10] LABS: ALT 113 U/L (16-63); AST 63 U/L (15-37); Albumin 2.4 g/dL (3.4-5.0); Alkaline Phosphatase 311 U/L (46-116); Anion Gap 9.9 mmol/L (3-11); BUN 11 mg/dL (7-18); Bilirubin, Total 0.59 mg/dL (0.2-1.0); CO2 25.1 mmol/L (21.0-32.0); CREATININE 1.3 mg/dL (0.70-1.30); Calcium 8.2 mg/dL (8.5-10.1); Chloride 103 mmol/L (98-107); Estimated GFR 64.88 (mL/min/1.73m2); Glucose 162 mg/dL (74-106); Potassium 3.7 mmol/L (3.5-5.1); Sodium 138 mmol/L (136-145); Total Protein 7.4 g/dL (6.4-8.2); Troponin I < 50 ng/L (< or =60)
[2024-01-06 23:26] LABS: Procalcitonin 0.7 ng/mL
[2024-01-06 23:41] LABS: COVID-19 PCR Negative (Negative); Influenza A PCR Negative (Negative); Influenza B PCR Negative (Negative); RSV PCR Negative (Negative)
[2024-01-06 23:47] LABS: Source Nasopharynx
[2024-01-07] VITALS (40 sets, daily range): BP systolic 82–149; BP diastolic 58–100; PULSE 90–118; RESP 10–19; O2SAT 92–100
[2024-01-07] MEDS: CEFEPIME 2 GM in Normal Saline 100 ML IVPB
[2024-01-07] MEDS: VANCOMYCIN 1,300 MG in Normal Saline 500 ML 333.3333 MG IVPB (00:03)
[2024-01-07 00:19] LABS: MRSA PCR Negative (Negative)
--- NOTE | 2024-01-07 00:45 | DI.CT_ITS ---
Exam(s) CT CHEST/ABD/PEL W EXAM: CT CHEST/ABD/PEL W CLINICAL HISTORY: abdominal pain, cancer, septic, hx of liver absces. TECHNIQUE: Imaging Protocol: Axial computed tomography images with coronal and sagittal reformatted images were created and reviewed CONTRAST MATERIAL: Intravenous: Omnipaque 350 Contrast volume:100 ml Oral: Percent no COMPARISON: CT CT ABDOMEN PELVIS W from 01/04/2024 FINDINGS: CHEST: Right-sided port. Tracheobronchial tree: Patent. Pulmonary parenchyma: Bibasilar atelectasis no consolidation or dominant measurable mass. Pleura: Small bilateral pleural effusions. No pneumothorax. Mediastinum: Esophageal varices. Aorta: Thoracic portion non-dilated. Pulmonary arteries: No visible emboli. Heart: Normal size. No pericardial effusion. Bones: Unremarkable for age. No lytic or blastic lesions.No compression fractures. Soft tissues: Unremarkable. ABDOMEN and PELVIS: Liver: Cirrhotic appearance. Tips. Pneumobilia, increased from prior. Stable biliary dilatation. Portal venous stent with thrombus again noted. Stable small hypodensities. No evidence of abscess. Gallbladder: Not abnormally distended. Pancreas: Stable low-density mass in head of pancreas. Spleen: Enlarged, unchanged. Kidneys: Normal size, contour and axis. No radiodense stones. No obstructive uropathy. No suspicious masses seen. Adrenal glands: No masses seen. Aorta: Abdominal portion non-dilated. Lymph nodes: Within normal limits. Soft tissues: Body wall edema. Left inguinal hernia containing fluid. Bladder: Unremarkable. Bowel: Duodenal stent unchanged. No evidence of obstruction. Mild small bowel wall thickening, wilfrido lar to prior. Stool throughout colon. Peritoneal cavity: Moderate quantity of ascites, similar to prior.. No focal collection. No mesente eliana inflammatory response. No free air. Bones: Ankylosis of the SI joints. Degenerative changes of the lumbar spine. No lytic or blastic le maco. Reproductive organs: Within normal limits. IMPRESSION: Stable appearance bilateral pleural effusions. Basilar atelectasis has increased from prior.. Stable ascites. Stable appearance pancreatic head mass, tips, duodenal stent and portal venous stent. Stable pneumob vince and biliary dilatation. No evidence of liver abscess. RADIATION DOSE DELIVERED: Total DLP DATA REPOSITORY: All CT scans at this facility are submitted to the National Radiology Data Registry (NRDR) Dose Index Registry (DIR) with the [employer] (ACR). RADIATION OPTIMIZATION: All CT scans at this facility use at least one of these dose optimization te chniques: automated exposure control; mA and/or kV adjustment per patient size (includes targeted exa ms where dose is matched to clinical indication); or iterative reconstruction.
[2024-01-07] MEDS: Normal Saline - Diluent 50 ML VIAL IJ (01:20)
[2024-01-07] MEDS: Omnipaque 350 MG/ML 100 ML BTL IJ (01:21)
[2024-01-07] MEDS: Norepinephrine in D5W 8 MG/250 ML BAG 9.375 MG IV (01:32)
--- NOTE | 2024-01-07 02:10 | W.ED.GENAD ---
Discharge Plan Discharge Details Chief Complaint: Fever Primary Care Provider: Zohaib Camargo ED Provider: Carol Gomes Home Meds and New Rx's Prescriptions: No Action albuterol sulfate 90 mcg/actuation HFA aerosol inhaler 2 puff inhalation Q6H PRN metformin 500 mg tablet 500 mg PO BID insulin glargine [Lantus Solostar U-100 Insulin] 100 unit/mL (3 mL) insulin pen 10 unit subcut QPM morphine 15 mg tablet extended release 15 mg PO Q12H Patient Comments: TAKE ONE TABLET BY MOUTH TWICE A DAY oxycodone 10 mg tablet 10 mg PO Q4H PRN Patient Comments: TAKE 1-2 TABLETS BY MOUTH EVERY 4 HOURS NEEDED FOR PAIN Jardiance 10 mg tablet 10 mg PO ONCE Patient Comments: TAKE ONE TABLET BY MOUTH EVERY DAY sennosides [senna] 8.6 mg tablet 8.6 mg PO DAILY Patient Comments: TAKE ONE TABLET BY MOUTH TWICE A DAY Creon 24,000-76,000 -120,000 unit capsule,delayed release(DR/EC) 4 cap PO .COMPLEX Patient Comments: TAKE FOUR CAPSULES BY MOUTH PER MEAL AND 2-3 PER SNACK (15 PER DAY) Rx Instructions: 4 caps orally with meals; potassium chloride 20 mEq tablet,ER particles/crystals 20 meq PO BID Patient Comments: TAKE ONE TABLET BY MOUTH TWICE A DAY levofloxacin 750 mg tablet Patient Comments: TAKE ONE TABLET BY MOUTH EVERY MORNING X30 HPI General Date/Time Provider Initiated Documentation: 01/06/24 22:30. Limitations to Documentation: altered mental status. Information obtained by: patient, family and old records reviewed. HPI Narrative: MDM: This is a 53-year-old male patient with a history of metastatic pancreatic cancer, presenting for evaluation of fever, altered mental status, and abdominal pain. My differential includes but is not limited to sepsis, bacteremia, certainly considered meningitis and encephalitis though the patient has no localizing neurodeficits or headache. I considered pneumonia, UTI, central line infection, and considered intra-abdominal causes including liver abscess, ascites, intra-abdominal abscess, bowel perforation, pancreatitis, diverticulitis, appendicitis, cholecystitis, hepatitis. Considered metabolic and electrolyte derangements, kidney injury, liver failure, anemia. Given the patient's fever, tachycardia, and tachypnea he does meet sepsis criteria and so our protocol was initiated. The patient had a broad laboratory workup including 2 peripheral blood cultures and 1 culture from his port site, received 2 L of intravenous fluids, broad-spectrum antibiotics to include cefepime and vancomycin, and a gram of Tylenol for his fever. Will obtain CT chest abdomen pelvis to better characterize any abnormalities to account for his symptoms. ED Course: Laboratory studies were reviewed by myself. He has a white count of 5, and anemia of 7.9 which is slightly decreased from his baseline of 8.3, and has a mild thrombocytopenia to 106. His chemistry panel demonstrates no significant electrolyte abnormality, no evidence of kidney dysfunction, but he does have a transaminitis and an elevated alk phos that has been present on prior studies. Procalcitonin was normal, lactate elevated to 2.3, no acidosis appreciated on his VBG. INR was 1.3, and COVID and influenza testing were negative, as well as his MRSA swab. The patient continued to have hypotension despite his fluid resuscitation, prompting initiation of pressors. I independently reviewed his CT scan given straight slightly worsened pneumobilia, no new abscesses compared to prior, splenomegaly, and bilateral pleural effusions. At the time that I signed out care of this patient to the oncoming team his disposition was pending acceptance to [facility] as our ICU is currently full. The patient was hemodynamically improved while under my care, all further care per the oncoming team. HPI: This is a 53-year-old male patient with a history of metastatic pancreatic cancer with known liver metastases presenting for evaluation of fever, altered mental status, and abdominal pain. The patient was seen in this facility a few days ago with abdominal pain, had CT imaging at that time that were not significantly changed from his priors, with improvement with IV narcotic pain medication and largely reassuring labs. He returned home with robust return precautions and his family member noted that a few hours ago he began to have chills and shaking, and became much more agitated and confused than his typical for him. She was prompted to immediately bring him back for an evaluation. The patient was noted on arrival to be febrile to 39 degrees, tachycardic, and tachypneic. He was brought back immediately for evaluation. The patient endorses abdominal pain, states he is not experiencing headache, changes in vision, or dizziness. He is not experiencing chest pain or shortness of breath, does not have a new oxygen requirement. He is not currently on antibiotics or chemotherapy. Exam: Gen: Closes his eyes but arouses to loud verbal stimuli, able to answer simple questions but with some confusion., HEENT: Non-icteric sclera, Pupils equal and reactive Neck: Supple no meningismus, Lungs: No apparent respiratory distress, normal respiratory effort, with mild tachypnea, lung sounds without right wheezes, rhonchi, rales CV: Appears well perfused, strong distal pulses with tachycardic rate Abdomen: Non-distended, soft tender to palpation with firmness concerning for hepatosplenomegaly, guarding but no rigidity or rebound MSK: Moves 4 extremities without apparent limitation in ROM Skin: Visualized skin without rashes, patient is hot to the touch, dry Neuro: no obvious focal deficits or facial asymmetry. Speaks in full, clear sentences. Psych: Appropriate for situation. Related Data Home Medications ?Medication ?Instructions ?Recorded ?Confirmed albuterol sulfate 90 mcg/actuation 2 puff inhalation Q6H PRN 03/27/22 11/09/23 aerosol inhaler insulin glargine 100 unit/mL (3 10 unit subcut QPM 03/27/22 11/09/23 mL) subcutaneous pen (Lantus Solostar U-100 Insulin) metformin 500 mg tablet 500 mg PO BID 03/27/22 01/06/24 empagliflozin 10 mg tablet 10 mg PO ONCE 06/04/23 01/06/24 (Jardiance) morphine 15 mg tablet,extended 15 mg PO Q12H 06/04/23 01/06/24 release oxycodone 10 mg tablet 10 mg PO Q4H PRN 06/04/23 01/06/24 [id number] 4 cap PO .COMPLEX 07/31/23 01/06/24 24,000-76,000-120,000 unit capsule,delayed rel (Creon) potassium chloride 20 mEq 20 meq PO BID 07/31/23 01/06/24 tablet,extended release(part/cryst) sennosides 8.6 mg tablet (senna) 8.6 mg PO DAILY 07/31/23 11/09/23 levofloxacin 750 mg tablet mg 11/09/23 Allergies Allergy/AdvReac Type Severity Reaction Status Date / Time diphenhydramine Allergy Anaphylaxis Unverified 01/04/24 14:20 General Stated Complaint: Fever SHANNON: 3 Course Vital Signs Vital signs: Vital Signs Temperature 39.4 C H 01/06/24 22:23 Pulse 137 H 01/06/24 22:23 Respiratory Rate 22 01/06/24 22:23 Blood Pressure 119/89 01/06/24 22:23 Pulse Oximetry 93 01/06/24 22:23 Temperature 39.4 C H 01/06/24 22:34 Temperature Source Oral 01/06/24 22:34 Pulse 128 H 01/06/24 22:45 Pulse 122 H 01/06/24 22:50 Respiratory Rate 12 01/06/24 22:50 Respiratory Effort Normal, Non-Labored 01/06/24 22:32 Blood Pressure 109/68 01/06/24 22:45 Blood Pressure Mean 82 01/06/24 22:45 Pulse Oximetry 93 01/06/24 22:34 Oxygen Delivery Method Room Air 01/06/24 22:34 Oxygen Flow Rate 0 01/06/24 22:23 Pain Level 8 01/06/24 23:07 Lab/Test Results Lab/Test Results: 01/06/24 23:37 Blood Blood Culture - Pending 01/06/24 22:44 Blood Blood Culture - Pending 01/06/24 22:41 Blood Blood Culture - Pending Laboratory Tests Range/Units 01/06/24 01/06/24 22:41 22:54 WBC (4.4-10.8) 10^3/uL 5.44 RBC (4.36-5.78) 10^6/uL 3.04 L Hgb (13.5-17.5) g/dL 7.9 L Hct (40.0-50.0) % 25.4 L MCV (80-95) fL 84 MCH (27.0-33.0) pg 26.0 L MCHC (32.0-36.0) % 31.1 L RDW (11.8-14.1) % 18.6 H Plt Count (130-400) 10^3/uL 106 L MPV (8.0-11.0) fL 10.0 Immature Gran % % 0.6 Neutrophils % % 92.7 Lymphocytes % % 2.8 Monocytes % % 3.5 Eosinophils % % 0.0 Basophils % % 0.4 Nucleated RBC % (0.0-0.3) % 0.0 Absolute Neutrophils (1.2-6.7) 10^3/uL 5.05 Absolute Lymphocytes (1.2-3.4) 10^3/uL 0.15 L Absolute Monocytes (0.1-0.8) 10^3/uL 0.19 Absolute Eosinophils (0.0-0.7) 10^3/uL 0.00 Absolute Basophils (0.0-0.2) 10^3/uL 0.02 PT (9.1-11.1) sec 12.6 H INR (0.9-1.1) 1.3 H APTT (23.6-32.8) sec 35.2 H VBG pH (7.31-7.41) 7.49 H VBG pCO2 (41-51) mmHg 33 L VBG pO2 mmHg 52 VBG HCO3 (23-28) mmol/L 26 VBG Total CO2 (24-29) mmol/L 24 VBG O2 Saturation % 89 VBG Base Excess (-2-3) mmol/L 2 VBG Lactate (0.6-1.4) mmol/L 2.3 H* Sodium (136-145) mmol/L 138 Potassium (3.5-5.1) mmol/L 3.7 Chloride (98-107) mmol/L 103 Carbon Dioxide (21.0-32.0) mmol/L 25.1 Anion Gap (3-11) mmol/L 9.9 BUN (7-18) mg/dL 11 Creatinine (0.70-1.30) mg/dL 1.3 Est GFR (CKD-EPI 2020) (mL/min/1.73m2) 64.88 Glucose (74-106) mg/dL 162 H Calcium (8.5-10.1) mg/dL 8.2 L Total Bilirubin (0.2-1.0) mg/dL 0.59 AST (15-37) U/L 63 H ALT (16-63) U/L 113 H Alkaline Phosphatase (46-116) U/L 311 H Troponin I (< or =60) ng/L < 50 Total Protein (6.4-8.2) g/dL 7.4 Albumin (3.4-5.0) g/dL 2.4 L Procalcitonin ng/mL 0.7 COVID-19 Source Cancelled Nasopharynx SARS-CoV-2 (PCR) Cancelled Negative Influenza Type A (PCR) (Negative) Negative Influenza Type B (PCR) (Negative) Negative RSV (PCR) (Negative) Negative MRSA (TEM-PCR) (Negative) Negative Medical Decision Making Quality:SDOH Health Related Social Needs: No Data to Display Critical Care Time Critical Care Time Critical Care Time: Yes Total Critical Care Time: 45 Attestation: Upon my evaluation, this patient had a high probability of imminent or life-threatening deterioration due to septic shock, which required my direct attention, intervention, and personal management. I have personally provided 45 minutes of critical care time exclusive of time spent on separately billable procedures. Time includes review of laboratory data, radiology results, discussion with consultants, and monitoring for potential decompensation. Interventions were performed as documented above. Carol Gomes MD [facility] All Active Problems Metastasis from pancreatic cancer (Acute) Hernia, inguinal, left (Acute) Abdominal pain (Acute) Abnormal weight loss (Acute) Asthma (Chronic) Hypertension (Chronic) Diabetes (Chronic) Screening for colon cancer (Acute) Abrasion, corneal (Acute) Eye foreign body (Acute) Social History Smoking/Tobacco Use Status: Former Tobacco Use Smoking risk assessment performed?: Yes Alcohol Intake: current Alcohol Intake frequency: a few times a month Drug use: Never Substance use type: does not use Housing: house Do you feel safe at home: Yes Do you feel safe in your relationship?: Yes
--- NOTE | 2024-01-07 02:23 | DI.VRAD_ITS ---
PROCEDURE INFORMATION: Exam: CT Chest With Contrast; Diagnostic Exam date and time: 01/07/2024 1:18 AM Age: 53 years old Clinical indication: Other: Abdominal pain, cancer, septic, HX of liver absces TECHNIQUE: Imaging protocol: Diagnostic computed tomography of the chest with contrast. 3D rendering (Not supervised by radiologist): MIP and/or 3D reconstructed images were created by the technologist. Contrast material: OMNI 350; Contrast volume: 100 ml; Contrast route: INTRAVENOUS (IV); COMPARISON: CT CHEST W 08/12/2023 8:14 AM FINDINGS: Tubes, catheters and devices: Right internal jugular infusion port with its tip is at the superior cavoatrial junction. Lungs: Bilateral lower lobe atelectasis. Pleural spaces: Bilateral small pleural effusions. Small bilateral pleural effusions. Heart: Unremarkable. No cardiomegaly. No pericardial effusion. Lymph nodes: Unremarkable. No enlarged lymph nodes. Vasculature: Dilated varices around the distal esophagus. Bones/joints: Unremarkable. No acute fracture. Soft tissues: Unremarkable. IMPRESSION: Small bilateral pleural effusions with bilateral lower lobe atelectasis. PROCEDURE INFORMATION: Exam: CT Abdomen And Pelvis With Contrast Exam date and time: 01/07/2024 1:18 AM Age: 53 years old Clinical indication: Other: Abdominal pain, cancer, septic, HX of liver absces TECHNIQUE: Imaging protocol: Computed tomography of the abdomen and pelvis with contrast. 3D rendering (Not supervised by radiologist): MIP and/or 3D reconstructed images were created by the technologist. Contrast material: OMNI 350; Contrast volume: 100 ml; Contrast route: INTRAVENOUS (IV); COMPARISON: CT ABDOMEN PELVIS W 01/04/2024 6:48 PM FINDINGS: Tubes, catheters and devices: CBD stent is in place. Line Liver: Redemonstrated multiple hypodense hepatic lesions. Gallbladder and biliary ducts: There is interval increase in the pneumobilia with similar dilatation of the intrahepatic biliary ducts. Similar distension of the gallbladder with wall enhancement. Pancreas: Stable rim enhancing lesion in the region of the head pancreas. Spleen: Redemonstrated splenomegaly. Adrenal glands: Normal. No mass. Kidneys and ureters: Normal. No hydronephrosis. Stomach and bowel: Duodenal stent is in unchanged position. Appendix: No evidence of appendicitis. Intraperitoneal space: Stable moderate ascites. Vasculature: Similar portal vein stent with thrombus. Lymph nodes: Unremarkable. No enlarged lymph nodes. Urinary bladder: Unremarkable as visualized. Reproductive: Unremarkable as visualized. Bones/joints: Bilateral sacroiliac joint ankylosis. Soft tissues: Left inguinal hernia containing part of the fluid. IMPRESSION: 1. Stable dilatation of the biliary tree with increase in the pneumobilia. No new hepatic lesion. Similar changes ascending cholangitis, cholecystitis and pancreatitis. 2. Similar focal thrombosis of the portal vein stent. 3. No new abscess formation. Dictated and Authenticated by: Abe Alex MD. Ordering:MIGEL Yang MD
[2024-01-07 02:39] LABS: Troponin I 56 ng/L (< or =60)
[2024-01-07] MEDS: MORPHine 4 MG/ML SYR IVP (02:53)
--- NOTE | 2024-01-07 03:24 | ED.PROG_ITS ---
Date of service: 01/07/24 Time of Service: 03:24 Medical Decision Making Patient was signed out to me pending CT imaging and reassessment. Please refer to Dr. Saint Haider's HPI, physical exam, assessment and plan. Patient has known pancreatic cancer, he is previously and recently had hepatic abscesses, cholecy stitis, ascending cholangitis which surprisingly included a chronic component. He presented today with fever, septic shock, blood pressure in his 70s systolic, started on Levophed, and after 20 cc/kg bolus plus additional 800 cc, and Levophed his blood pressure normalized. He was started on broad-spectrum antibiotics products of vancomycin and cefepime. Laboratory workup shows no white count, hemoglobin slightly lower than normal at 7.5, lactate elevated at 2.3, electrolytes stable, transaminases slightly elevated, bilirubin normal. Procalcitonin high at 0.7, COVID flu and RSV negative. Still pending urinalysis. CT imaging shows evidence of stable dilatation of ALARA tree with increase in the pneumobilia, no new hepatic lesions, but slightly similar/slightly worsened ascending cholangitis, cholecystitis and pancreatitis. Patient also has bilateral pleural effusions with atelectasis. With the patient's critical nature, he does require ICU admission. We have no ICU beds available, and the patient is a regular patient of [facility]. I do feel that transfer is indicated in this scenario. I discussed the case with the chemical strength tester Dr. Corrales, he agrees with the assessment and plan. Patient will be admitted under Dr. Devlin. I have extensively reviewed the treatment plan with the patient. I have addressed all patient concerns at this time. I have also discussed the plan with the admitting physician and they agree with the current assessment and plan and have agreed to assume responsibility for the patient. All parties demonstrate verbal understanding and agreement with our assessment and plan at this time. The documentation in this chart was dictated using [employer] dictation software. Please excuse any dictation errors. Patient's mental status is improving at time of transfer. He is able to hold conversations well. At time of transfer the patient was reassessed and continued to demonstrate No signs of acute respiratory distress requiring intubation, or rapidly declining mental status. FINDINGS: Tubes, catheters and devices: Right internal jugular infusion port with its tip is at the superior cavoatrial junction. Lungs: Bilateral lower lobe atelectasis. Pleural spaces: Bilateral small pleural effusions. Small bilateral pleural effusions. Heart: Unremarkable. No cardiomegaly. No pericardial effusion. Lymph nodes: Unremarkable. No enlarged lymph nodes. Vasculature: Dilated varices around the distal esophagus. Bones/joints: Unremarkable. No acute fracture. Soft tissues: Unremarkable. IMPRESSION: Small bilateral pleural effusions with bilateral lower lobe atelectasis. FINDINGS: Tubes, catheters and devices: CBD stent is in place. Line Liver: Redemonstrated multiple hypodense hepatic lesions. Gallbladder and biliary ducts: There is interval increase in the pneumobilia with similar dilatation of the intrahepatic biliary ducts. Similar distension of the gallbladder with wall enhancement. Pancreas: Stable rim enhancing lesion in the region of the head pancreas. Spleen: Redemonstrated splenomegaly. Adrenal glands: Normal. No mass. Kidneys and ureters: Normal. No hydronephrosis. Stomach and bowel: Duodenal stent is in unchanged position. Appendix: No evidence of appendicitis. Intraperitoneal space: Stable moderate ascites. Vasculature: Similar portal vein stent with thrombus. Lymph nodes: Unremarkable. No enlarged lymph nodes. Urinary bladder: Unremarkable as visualized. Reproductive: Unremarkable as visualized. Bones/joints: Bilateral sacroiliac joint ankylosis. Soft tissues: Left inguinal hernia containing part of the fluid. IMPRESSION: 1. Stable dilatation of the biliary tree with increase in the pneumobilia. No new hepatic lesion. Similar changes ascending cholangitis, cholecystitis and pancreatitis. 2. Similar focal thrombosis of the portal vein stent. 3. No new abscess formation. Thank you for allowing us to participate in the care of your patien Quality:SDOH Health Related Social Needs: No Data to Display Critical Care Time Critical Care Time Critical Care Time: Yes Total Critical Care Time: 75 Attestation: Upon my evaluation, this patient had a high probability of imminent or life-thr eatening deterioration, which required my direct attention, intervention, and personal management. I have personally provided 75 minutes of critical care time exclusive of time spent on separately billable procedures. Time includes review of laboratory data, radiology results, discussion with consultants, and monitoring for potential decompensation. Interventions were performed as documented. Sign Out Sign Out Data: Sign Out Comment: Metastatic pancreatic cancer, presented with septic shock requiring Levophed, likely intra-abdominal versus pulmonary origin. Status post cefepime and vancomycin, 2 L IV fluid, Tylenol, pain meds, awaiting transfer to [facility]. Last updated by Carol Gomes MD at 01/07/24 03:20 Discharge Plan Disposition Patient Disposition: Transfer-Acute Inpatient Care Specific Acute Inpt Facility: [facility] Condition: Critical Discharge Details Chief Complaint: Fever Clinical Impression: Septic shock, Liver abscess and sequelae of chronic liver disease, Cholecystitis with cholangitis Primary Care Provider: Zohaib Camargo ED Provider: Trey Larson Home Meds and New Rx's Prescriptions: No Action albuterol sulfate 90 mcg/actuation HFA aerosol inhaler 2 puff inhalation Q6H PRN metformin 500 mg tablet 500 mg PO BID insulin glargine [Lantus Solostar U-100 Insulin] 100 unit/mL (3 mL) insulin pen 10 unit subcut QPM morphine 15 mg tablet extended release 15 mg PO Q12H Patient Comments: TAKE ONE TABLET BY MOUTH TWICE A DAY oxycodone 10 mg tablet 10 mg PO Q4H PRN Patient Comments: TAKE 1-2 TABLETS BY MOUTH EVERY 4 HOURS NEEDED FOR PAIN Jardiance 10 mg tablet 10 mg PO ONCE Patient Comments: TAKE ONE TABLET BY MOUTH EVERY DAY sennosides [senna] 8.6 mg tablet 8.6 mg PO DAILY Patient Comments: TAKE ONE TABLET BY MOUTH TWICE A DAY Creon 24,000-76,000 -120,000 unit capsule,delayed release(DR/EC) 4 cap PO .COMPLEX Patient Comments: TAKE FOUR CAPSULES BY MOUTH PER MEAL AND 2-3 PER SNACK (15 PER DAY) Rx Instructions: 4 caps orally with meals; potassium chloride 20 mEq tablet,ER particles/crystals 20 meq PO BID Patient Comments: TAKE ONE TABLET BY MOUTH TWICE A DAY levofloxacin 750 mg tablet Patient Comments: TAKE ONE TABLET BY MOUTH EVERY MORNING X30
--- NOTE | 2024-01-07 17:45 | NUR.NOTE ---
Unable to have fax go through to send the positive culture results. Spoke with Jessica the community advocate and have scanned to email to [email or web address]. Nursing Note:
--- NOTE | 2024-01-09 15:20 | NUR.NOTE ---
Blood Culture Aerobic Bottle possitive, gram stain shows gram positive rods, report called to Dr Jasson Otto MD via Diane Noriega RN at 1520 on 10/09/23 in the ICU, Dr Alarcon aware of report, pt at ICU at present time after being transferred to on 01/07/24.
--- NOTE | 2024-01-12 12:43 | NUR.NOTE ---
Lab called with 1 anerobic blood culture bottle positive for gram stain show positive ccci and gram negative rods. Unable to have fax go through to [facility], results called to Jody on that unit. Nursing Note:
== END 2024-01-07 04:34 | disposition short-term general hospital (02) ==
PROVIDERS: Emergency Medicine; Emergency Provider Student in an Organized Health Care Education/Training Program; PCP Family Medicine
DX: R50.9 Fever, unspecified (principal); K81.9 Cholecystitis, unspecified; K75.0 Abscess of liver; K76.9 Liver disease, unspecified; R65.21 Severe sepsis with septic shock; A41.9 Sepsis, unspecified organism; C25.9 Malignant neoplasm of pancreas, unspecified; C79.9 Secondary malignant neoplasm of unspecified site
CPT/HCPCS: 00123; 36415; 74177; 80053; 82805; 84145; 87040; 87077; 87635; 87637; 87641; 96365; 96366; 96367; 96375; 99291; 99292; 71260; 83605; 84484; 85025; 85610; 85730; 87186; J0131; J0692; J1170; J2270; J3370; J3490

== ENCOUNTER 2024-01-15 01:02 | Outpatient (RCR) | payer BC, SELFPAY ==
[2023-12-17 00:25] VITALS: BP 123/81; PULSE 80; RESP 16; TEMP 36.2
[2023-12-18] MEDS: Normal Saline Flush 10 ML SYR IVP (10:49)
[2023-12-18 11:11] LABS: Abs Immature Grans 0.03 10^3/uL (0.0-0.06); Absolute Basophil Count 0.01 10^3/uL (0.0-0.2); Absolute Eosinophil Count 0.17 10^3/uL (0.0-0.7); Absolute Lymphocyte Count 0.23 10^3/uL (1.2-3.4); Absolute Monocyte Count 0.22 10^3/uL (0.1-0.8); Absolute Neutrophil Count 3.18 10^3/uL (1.2-6.7); Basophils % 0.3 %; Eosinophils % 4.4 %; HCT 29.1 % (40.0-50.0); HGB 9.1 g/dL (13.5-17.5); Immature Grans % 0.8 %; MCHC 31.3 % (32.0-36.0); MCV 83 fL (80-95); MPV 9.7 fL (8.0-11.0); Monocytes % 5.7 %; Neutrophils % 82.8 %; Platelet Count 126 10^3/uL (130-400); RDW-SD 51.5 fL; WBC 3.84 10^3/uL (4.4-10.8)
[2023-12-18 11:29] LABS: ALT 40 U/L (16-63); AST 21 U/L (15-37); Albumin 2.5 g/dL (3.4-5.0); Alkaline Phosphatase 120 U/L (46-116); BUN 9 mg/dL (7-18); Bilirubin, Total 0.41 mg/dL (0.2-1.0); Calcium 8.1 mg/dL (8.5-10.1); Chloride 102 mmol/L (98-107); Estimated GFR 88.88 (mL/min/1.73m2); Glucose 250 mg/dL (74-106); Sodium 138 mmol/L (136-145); Total Protein 7.7 g/dL (6.4-8.2)
[2023-12-18 11:34] LABS: Potassium 2.8 mmol/L (3.5-5.1)
[2023-12-18 22:23] LABS: CA 19-9 982 U/mL (<35)
[2024-01-01] MEDS: Normal Saline Flush 10 ML SYR IVP (14:10)
[2024-01-01 14:29] LABS: Abs Immature Grans 0.03 10^3/uL (0.0-0.06); Absolute Basophil Count 0.01 10^3/uL (0.0-0.2); Absolute Eosinophil Count 0.05 10^3/uL (0.0-0.7); Absolute Lymphocyte Count 0.22 10^3/uL (1.2-3.4); Absolute Monocyte Count 0.26 10^3/uL (0.1-0.8); Absolute Neutrophil Count 4.03 10^3/uL (1.2-6.7); Basophils % 0.2 %; Eosinophils % 1.1 %; HCT 26.8 % (40.0-50.0); HGB 8.3 g/dL (13.5-17.5); Immature Grans % 0.7 %; Lymphocytes % 4.8 %; MCH 26.2 pg (27.0-33.0); MCV 85 fL (80-95); MPV 10.2 fL (8.0-11.0); Monocytes % 5.7 %; Neutrophils % 87.5 %; Platelet Count 115 10^3/uL (130-400); RBC 3.17 10^6/uL (4.36-5.78); RDW 17.2 % (11.8-14.1); RDW-SD 52.8 fL
[2024-01-01 14:43] LABS: ALT 33 U/L (16-63); AST 20 U/L (15-37); Albumin 2.5 g/dL (3.4-5.0); Alkaline Phosphatase 115 U/L (46-116); Anion Gap 9.4 mmol/L (3-11); BUN 8 mg/dL (7-18); Bilirubin, Total 0.26 mg/dL (0.2-1.0); CO2 25.6 mmol/L (21.0-32.0); Calcium 8.5 mg/dL (8.5-10.1); Chloride 104 mmol/L (98-107); Estimated GFR 88.88 (mL/min/1.73m2); Glucose 180 mg/dL (74-106); Potassium 3.9 mmol/L (3.5-5.1); Sodium 139 mmol/L (136-145); Total Protein 7.7 g/dL (6.4-8.2)
[2024-01-01 14:47] LABS: Anisocytosis 1+; Diff Comment RBC Morph Reviewed; Hypochromasia 1+
[2024-01-15] MEDS: Normal Saline Flush 10 ML SYR IVP (11:40)
[2024-01-15 11:52] LABS: Abs Immature Grans 0.06 10^3/uL (0.0-0.06); Absolute Eosinophil Count 0.05 10^3/uL (0.0-0.7); Absolute Lymphocyte Count 0.18 10^3/uL (1.2-3.4); Absolute Monocyte Count 0.25 10^3/uL (0.1-0.8); Absolute Neutrophil Count 2.55 10^3/uL (1.2-6.7); Eosinophils % 1.6 %; HCT 28.2 % (40.0-50.0); HGB 8.9 g/dL (13.5-17.5); Immature Grans % 1.9 %; Lymphocytes % 5.8 %; MCH 26.8 pg (27.0-33.0); MCHC 31.6 % (32.0-36.0); MCV 85 fL (80-95); MPV 10.9 fL (8.0-11.0); Monocytes % 8.1 %; Neutrophils % 82.6 %; Platelet Count 117 10^3/uL (130-400); RBC 3.32 10^6/uL (4.36-5.78); RDW-SD 56.2 fL; WBC 3.09 10^3/uL (4.4-10.8)
[2024-01-15 12:06] LABS: ALT 33 U/L (16-63); AST 22 U/L (15-37); Albumin 2.6 g/dL (3.4-5.0); Alkaline Phosphatase 154 U/L (46-116); Anion Gap 6.4 mmol/L (3-11); BUN 9 mg/dL (7-18); Bilirubin, Total 0.33 mg/dL (0.2-1.0); CO2 28.6 mmol/L (21.0-32.0); Calcium 8.4 mg/dL (8.5-10.1); Chloride 99 mmol/L (98-107); Estimated GFR 88.88 (mL/min/1.73m2); Glucose 327 mg/dL (74-106); Potassium 3.9 mmol/L (3.5-5.1); Sodium 134 mmol/L (136-145); Total Protein 7.5 g/dL (6.4-8.2)
== END 2024-01-16 23:59 | disposition home or self-care (01) ==
LOC: INF 01:02
PROVIDERS: PCP Family Medicine; Visit Provider Internal Medicine Hematology & Oncology
DX: C25.0 Malignant neoplasm of head of pancreas (principal); Z45.2 Encounter for adjustment and management of vascular access device
CPT/HCPCS: 36591; 80053; 96523; 85025; 86301

== ENCOUNTER 2024-01-19 16:22 | Outpatient (REF) | payer BC, SELFPAY ==
[2024-01-19 13:47] LABS: Abs Immature Grans 0.02 10^3/uL (0.0-0.06); Absolute Basophil Count 0.01 10^3/uL (0.0-0.2); Absolute Eosinophil Count 0.05 10^3/uL (0.0-0.7); Absolute Lymphocyte Count 0.22 10^3/uL (1.2-3.4); Absolute Monocyte Count 0.23 10^3/uL (0.1-0.8); Absolute Neutrophil Count 3.66 10^3/uL (1.2-6.7); Basophils % 0.2 %; Eosinophils % 1.2 %; HCT 29.4 % (40.0-50.0); HGB 8.9 g/dL (13.5-17.5); Immature Grans % 0.5 %; Lymphocytes % 5.3 %; MCH 26.5 pg (27.0-33.0); MCHC 30.3 % (32.0-36.0); MCV 88 fL (80-95); MPV 10.8 fL (8.0-11.0); Monocytes % 5.5 %; Neutrophils % 87.3 %; Platelet Count 128 10^3/uL (130-400); RBC 3.36 10^6/uL (4.36-5.78); RDW 18.1 % (11.8-14.1); RDW-SD 58.1 fL; WBC 4.19 10^3/uL (4.4-10.8)
[2024-01-19 14:02] LABS: ALT 33 U/L (16-63); AST 23 U/L (15-37); Albumin 2.8 g/dL (3.4-5.0); Alkaline Phosphatase 137 U/L (46-116); Anion Gap 10.4 mmol/L (3-11); BUN 10 mg/dL (7-18); Bilirubin, Total 0.43 mg/dL (0.2-1.0); CO2 26.6 mmol/L (21.0-32.0); Calcium 8.3 mg/dL (8.5-10.1); Chloride 101 mmol/L (98-107); Estimated GFR 88.88 (mL/min/1.73m2); Glucose 363 mg/dL (74-106); Potassium 3.9 mmol/L (3.5-5.1); Sodium 138 mmol/L (136-145); Total Protein 7.2 g/dL (6.4-8.2)
== END 2024-01-19 16:23 | disposition home or self-care (01) ==
LOC: LBN 16:22
PROVIDERS: PCP Family Medicine; Visit Provider Family Medicine
DX: C25.0 Malignant neoplasm of head of pancreas (principal)
CPT/HCPCS: 80053; 85025

== ENCOUNTER 2024-01-20 13:20 | Emergency (ER) | payer BC, SELFPAY ==
[2024-01-20 13:23] VITALS: BP 133/89; PULSE 105; RESP 16; TEMP 36.9; O2SAT 98
--- NOTE | 2024-01-20 14:15 | DI.CT_ITS ---
Exam(s) CT ABDOMEN PELVIS WO EXAM: CT ABDOMEN PELVIS WO CLINICAL HISTORY: bloating, abdominal pain, post procedure/liver bio. TECHNIQUE: Imaging Protocol: Axial computed tomography images with coronal and sagittal reformatted images were created and reviewed CONTRAST MATERIAL: Intravenous: none Oral: None COMPARISON: CT CT CHEST/ABD/PEL W from 01/07/2024 FINDINGS: VISUALIZED LUNG BASES: There is a moderate sized left pleural effusion again noted. Also some atelec tasis and infiltrate in left lung base. Visualized right lung bases clear and there is no right-side d pleural effusion evident at this time. The previously present infiltrate in the posterior basal se gment of the right lower lobe which was evident on 01/07/2024 has resolved. ABDOMEN: There is extensive severe ascites in the abdomen and pelvis which has further increased from 01/07/20 24. LIVER: Liver appears cirrhotic. Some branching gas is seen within the liver which is difficult to de termine as pneumobilia versus is air in the portal venous system. There is a E surgical or intervent ional placed device at the level of the capsule-other aspect of the lower right hepatic lobe inferior ly, unchanged. This may be from prior biopsy site. There is no subcapsular collection at this level . No intrahepatic collection nor abscess seen at this location nor elsewhere in the liver on this no n infused study.. There are multiple stents again noted, unchanged. One of these is probably a TIPS . Another is within the main portal vein. Yet another is probably within the CBD. On this non infu sed study it is difficult to determine if there is still intraluminal thrombus within the main portal vein stent (as was previously the case on 01/07/2024. GALLBLADDER/BILIARY: Appears similar to previous difficult to assess given the amount of surrounding fluid from the generalized ascites. The gallbladder is not distended. There are CBD stents in place , one deployed with in the other. No significant waist narrowing. PANCREAS: Pancreatic tissue is difficult to delineate from surrounding structures. SPLEEN: Splenomegaly is again noted. Craniocaudal length of the spleen is 19.5 cm. ADRENALS: No obvious new findings. KIDNEYS:There is a solitary punctate nonobstructive calculus in the lower pole left kidney. No radio paque calculi seen in the right kidney. No renal masses nor cysts. No hydronephrosis. No obvious s olid renal masses.. ABDOMINAL AORTA: Abdominal aorta is not enlarged. LYMPH NODES: There appear to be multiple moderately enlarged mesenteric lymph nodes. ABDOMINAL WALL: No significant anterior abdominal hernia but there is a left inguinal hernia again no nia which contains fluid within the hernia sac which extends down towards the scrotum. There do not appear to be bowel loops within this left inguinal hernia sac. GI: There is no evidence of bowel obstruction, free air, nor abscess. PELVIS: There is a large amount of ascites in the pelvis. LYMPH NODES: There is no intrapelvic nor inguinal adenopathy. GI: Appendix is not possible to be located.No evidence of obvious sigmoid diverticulitis. URINARY BLADDER: Moderately distended. No intraluminal mass nor radiopaque calculi. REPRODUCTIVE: Prostate size upper normal. OSSEOUS: No fractures nor significant osseous lesions. There is ankylosis/partial ankylosis of the s acroiliac joints noted. There is disc space narrowing with vacuum phenomena at L5-S1 level and there is broad annular bulging at this level. There is mild degenerative anterolisthesis L4 upon L5. IMPRESSION: 1. Severely cachectic patient with massive ascites in the abdomen and pelvis which has further progre ssed from 01/07/2024. Moderate size left pleural effusion. There is presently no right pleural effu maco and the infiltrate previously present right lung base has resolved. 2. Cirrhotic liver with findings as above. Given that this is a noninfused study it is not possible to determine if there is persistent intraluminal thrombus within the main portal vein stent, as was e vident on the prior study of 01/07/2024 CBD stent again noted. 3. Splenomegaly again noted. Multiple small lymph nodes noted in the mesentery. 4. Solitary nonobstructive small calculus in left kidney. No hydronephrosis. No other obvious find ings in the kidneys and urinary bladder. Other findings as above Report called by myself to ER provider 01/20/2024 3:30 p.m. RADIATION DOSE DELIVERED: 460.94mGy.cm Total DLP DATA REPOSITORY: All CT scans at this facility are submitted to the National Radiology Data Registry (NRDR) Dose Index Registry (DIR) with the [employer] ([employer]). RADIATION OPTIMIZATION: All CT scans at this facility use at least one of these dose optimization te chniques: automated exposure control; mA and/or kV adjustment per patient size (includes targeted exa ms where dose is matched to clinical indication); or iterative reconstruction.
[2024-01-20 14:44] LABS: Abs Immature Grans 0.02 10^3/uL (0.0-0.06); Absolute Basophil Count 0.02 10^3/uL (0.0-0.2); Absolute Eosinophil Count 0.06 10^3/uL (0.0-0.7); Absolute Lymphocyte Count 0.22 10^3/uL (1.2-3.4); Absolute Monocyte Count 0.18 10^3/uL (0.1-0.8); Basophils % 0.4 %; Eosinophils % 1.3 %; HCT 29.6 % (40.0-50.0); HGB 9.1 g/dL (13.5-17.5); Immature Grans % 0.4 %; Lymphocytes % 4.9 %; MCHC 30.7 % (32.0-36.0); MCV 88 fL (80-95); MPV 10.3 fL (8.0-11.0); Platelet Count 142 10^3/uL (130-400); RBC 3.37 10^6/uL (4.36-5.78); RDW 18.5 % (11.8-14.1); RDW-SD 58.5 fL
[2024-01-20] MEDS: MORPHine 10 MG/ML VIAL 2 MG IVP (14:44)
[2024-01-20 14:48] LABS: BE (Venous) 5 mmol/L (-2-3); HCO3 (Venous) 29 mmol/L (23-28); O2 Sat (Venous) 61 %; TCO2 (Venous) 28 mmol/L (24-29); pCO2 (Venous) 45 mmHg (41-51); pH (Venous) 7.42 (7.31-7.41); pO2 (Venous) 34 mmHg
[2024-01-20 14:59] LABS: Ammonia 28 umol/L (11-32)
[2024-01-20 15:00] VITALS: BP 130/84; PULSE 101
[2024-01-20 15:00] LABS: INR 1.1 (0.9-1.1); PTT Activated 33.9 sec (23.6-32.8); Prothrombin Time 11.2 sec (9.1-11.1)
[2024-01-20 15:03] LABS: ALT 28 U/L (16-63); AST 25 U/L (15-37); Albumin 2.8 g/dL (3.4-5.0); Alkaline Phosphatase 135 U/L (46-116); Anion Gap 5.5 mmol/L (3-11); BUN 10 mg/dL (7-18); Bilirubin, Total 0.33 mg/dL (0.2-1.0); CO2 29.5 mmol/L (21.0-32.0); CREATININE 1.1 mg/dL (0.70-1.30); Calcium 8.9 mg/dL (8.5-10.1); Chloride 100 mmol/L (98-107); Estimated GFR 79.28 (mL/min/1.73m2); Glucose 422 mg/dL (74-106); Lipase < 10 U/L (16-77); Potassium 4.3 mmol/L (3.5-5.1); Sodium 135 mmol/L (136-145); Total Protein 7.9 g/dL (6.4-8.2)
[2024-01-20 15:11] LABS: NT-proBNP 50 pg/mL (<300)
[2024-01-20 15:21] LABS: Procalcitonin < 0.1 ng/mL
--- NOTE | 2024-01-20 15:28 | ED.GENADUL_ITS ---
Discharge Plan Disposition Patient Disposition: Home Condition: Good Discharge Details Clinical Impression: Ascites Primary Care Provider: Zohaib Camargo ED Provider: Trey Larson Home Meds and New Rx's Prescriptions: No Action albuterol sulfate 90 mcg/actuation HFA aerosol inhaler 2 puff inhalation Q6H PRN metformin 500 mg tablet 500 mg PO BID insulin glargine [Lantus Solostar U-100 Insulin] 100 unit/mL (3 mL) insulin pen 10 unit subcut QPM morphine 15 mg tablet extended release 15 mg PO Q12H Patient Comments: TAKE ONE TABLET BY MOUTH TWICE A DAY oxycodone 10 mg tablet 10 mg PO Q4H PRN Patient Comments: TAKE 1-2 TABLETS BY MOUTH EVERY 4 HOURS NEEDED FOR PAIN Jardiance 10 mg tablet 10 mg PO ONCE Patient Comments: TAKE ONE TABLET BY MOUTH EVERY DAY sennosides [senna] 8.6 mg tablet 8.6 mg PO DAILY Patient Comments: TAKE ONE TABLET BY MOUTH TWICE A DAY Creon 24,000-76,000 -120,000 unit capsule,delayed release(DR/EC) 4 cap PO .COMPLEX Patient Comments: TAKE FOUR CAPSULES BY MOUTH PER MEAL AND 2-3 PER SNACK (15 PER DAY) Rx Instructions: 4 caps orally with meals; potassium chloride 20 mEq tablet,ER particles/crystals 20 meq PO BID Patient Comments: TAKE ONE TABLET BY MOUTH TWICE A DAY levofloxacin 750 mg tablet Patient Comments: TAKE ONE TABLET BY MOUTH EVERY MORNING X30 Discharge Instructions Instructions: Fluid in the Belly (Ascites) (DC) Additional Instructions: At this time your laboratory workup is stable. Your peritoneal fluid does not show any evidence of annmarie infection. However with the previous biopsy that was performed and every paracentesis there is always a chance for infection to develop. Please make sure you are watching closely for worsening abdominal pain fever or chills. Follow-up closely with your specialist at [facility]. If you notice any worsening of your symptoms, or any new symptoms such as vomiting, diarrhea, fever, chills, shortness of breath, chest pain, numbness, weakness, or fainting , please return immediately to the emergency department for reevaluation. Please follow up with your primary care provider as soon as possible for reassessment and reevaluation. As always, it was a pleasure participating in your medical care today. Referrals: Zohaib Camargo MD [Primary Care Provider] - Discharge Data Discharge Date/Time-TO BE ENTERED AT DEPARTURE: 01/20/24 17:33 HPI General Date/Time Provider Initiated Documentation: 01/20/24 14:17 . HPI Narrative: 53-year-old male with a past medical history of known pancreatic cancer previously with hepatic abscesses cholecystitis ascending cholangitis which transition to chronic cholangitis, who was recently admitted transferred and discharged from [facility] on 01/15/2024, at which time he had 2 diagnostic paracenteses which were both negative for spontaneous bacterial peritonitis. He had 6 L removed on 01/13 with albumin replacement. Liver biopsy was performed on 01/12. Still pending pathology. He had Streptococcus constellatus bacteremia which is resolved and he is now taking continued antibiotic therapy of ceftriaxone and Flagyl daily. Who presents today for evaluation of abdominal distention. Patient states that for the last few days since being discharged she has had enlargement of his abdomen with achiness and pain. He denies fever or chills. He denies vomiting or diarrhea but does admit to diminished appetite. He denies any new chest pain or shortness of breath. No other complaints at this time. No other modifying factors. Related Data Home Medications ?Medication ?Instructions ?Recorded ?Confirmed albuterol sulfate 90 mcg/actuation 2 puff inhalation Q6H PRN 03/27/22 11/09/23 aerosol inhaler insulin glargine 100 unit/mL (3 10 unit subcut QPM 03/27/22 11/09/23 mL) subcutaneous pen (Lantus Solostar U-100 Insulin) metformin 500 mg tablet 500 mg PO BID 03/27/22 01/06/24 empagliflozin 10 mg tablet 10 mg PO ONCE 06/04/23 01/06/24 (Jardiance) morphine 15 mg tablet,extended 15 mg PO Q12H 06/04/23 01/06/24 release oxycodone 10 mg tablet 10 mg PO Q4H PRN 06/04/23 01/06/24 qhgeua-[id number]-sbqtaat 4 cap PO .COMPLEX 07/31/23 01/06/24 24,000-76,000-120,000 unit capsule,delayed rel (Creon) potassium chloride 20 mEq 20 meq PO BID 07/31/23 01/06/24 tablet,extended release(part/cryst) sennosides 8.6 mg tablet (senna) 8.6 mg PO DAILY 07/31/23 11/09/23 levofloxacin 750 mg tablet mg 11/09/23 Allergies Allergy/AdvReac Type Severity Reaction Status Date / Time diphenhydramine Allergy Anaphylaxis Verified 01/20/24 13:31 General Stated Complaint: Abd Prob SHANNON: 3 Review of Systems All systems reviewed & are unremarkable except as noted in HPI and below Exam Narrative Exam Narrative: 1.Const: Well-nourished, Well-developed, appearing stated age 2.Eyes: PERRL, no conjunctival injection, and symmetrical lids. 3.ENT: Atraumatic external nose and ears. Moist MM. Neck: Symmetric, trachea midline, No thyromegaly. 4.CVS: +S1/S2, No murmurs or gallops. Peripheral pulses 2+ and equal in all extremities. Brisk capillary refill in all extremities. 5.RESP: Unlabored respiratory effort. Clear to auscultation bilaterally. No wheezes rales or rhonchi 6.GI: Mild distention with ascites and fluid movement of the abdomen. No redness or warmth. No focal tenderness. No hyperesthesias. 7.MSK: Normocephalic/Atraumatic, Extremities w/o deformity or ttp No cyanosis or clubbing, Normal movement of all extremities 8.Skin: Warm, Dry. No rashes or lesions. 9.Neuro: taxation agent II-XII grossly intact. Sensation grossly intact, no focal neurologic deficits. 10.Psych: (AAO) x3. Appropriate mood and affect Course Vital Signs Vital signs: Vital Signs Temperature 36.9 C 01/20/24 13:23 Pulse 105 H 01/20/24 13:23 Respiratory Rate 16 01/20/24 13:23 Blood Pressure 133/89 01/20/24 13:23 Pulse Oximetry 98 01/20/24 13:23 Temperature 36.9 C 01/20/24 13:23 Temperature Source Tympanic 01/20/24 13:23 Pulse 105 H 01/20/24 13:23 Respiratory Rate 16 01/20/24 13:23 Respiratory Effort Normal 01/20/24 13:31 Blood Pressure 133/89 01/20/24 13:23 Pulse Oximetry 98 01/20/24 13:23 Oxygen Delivery Method Room Air 01/20/24 13:23 Oxygen Flow Rate 0 01/20/24 13:23 Pain Level 8 01/20/24 14:44 Lab/Test Results Lab/Test Results: 01/20/24 14:30 Blood Blood Culture - Pending 01/20/24 14:19 Blood Blood Culture - Pending Laboratory Tests Range/Units 01/20/24 14:30 WBC (4.4-10.8) 10^3/uL 4.50 RBC (4.36-5.78) 10^6/uL 3.37 L Hgb (13.5-17.5) g/dL 9.1 L Hct (40.0-50.0) % 29.6 L MCV (80-95) fL 88 MCH (27.0-33.0) pg 27.0 MCHC (32.0-36.0) % 30.7 L RDW (11.8-14.1) % 18.5 H Plt Count (130-400) 10^3/uL 142 MPV (8.0-11.0) fL 10.3 Immature Gran % % 0.4 Neutrophils % % 89.0 Lymphocytes % % 4.9 Monocytes % % 4.0 Eosinophils % % 1.3 Basophils % % 0.4 Nucleated RBC % (0.0-0.3) % 0.0 Absolute Neutrophils (1.2-6.7) 10^3/uL 4.00 Absolute Lymphocytes (1.2-3.4) 10^3/uL 0.22 L Absolute Monocytes (0.1-0.8) 10^3/uL 0.18 Absolute Eosinophils (0.0-0.7) 10^3/uL 0.06 Absolute Basophils (0.0-0.2) 10^3/uL 0.02 PT (9.1-11.1) sec 11.2 H INR (0.9-1.1) 1.1 APTT (23.6-32.8) sec 33.9 H VBG pH (7.31-7.41) 7.42 H VBG pCO2 (41-51) mmHg 45 VBG pO2 mmHg 34 VBG HCO3 (23-28) mmol/L 29 H VBG Total CO2 (24-29) mmol/L 28 VBG O2 Saturation % 61 VBG Base Excess (-2-3) mmol/L 5 H Sodium (136-145) mmol/L 135 L Potassium (3.5-5.1) mmol/L 4.3 Chloride (98-107) mmol/L 100 Carbon Dioxide (21.0-32.0) mmol/L 29.5 Anion Gap (3-11) mmol/L 5.5 BUN (7-18) mg/dL 10 Creatinine (0.70-1.30) mg/dL 1.1 Est GFR (CKD-EPI 2020) (mL/min/1.73m2) 79.28 Glucose (74-106) mg/dL 422 H Calcium (8.5-10.1) mg/dL 8.9 Total Bilirubin (0.2-1.0) mg/dL 0.33 AST (15-37) U/L 25 ALT (16-63) U/L 28 Alkaline Phosphatase (46-116) U/L 135 H Ammonia (11-32) umol/L 28 NT-Pro-B Natriuret Pep (<300) pg/mL 50 Total Protein (6.4-8.2) g/dL 7.9 Albumin (3.4-5.0) g/dL 2.8 L Lipase (16-77) U/L < 10 L Procalcitonin ng/mL < 0.1 Procedures Paracentesis Time Out Performed: Yes Indication: Ascites Procedure: diagnostic paracentesis Location: LLQ Local Anesthetic: Lidocaine 1% Amount of anesthesia used (mL): 2 Bedside Ultrasound Used: yes, Ascites confirmed and location marked Preparation: sterile prep and drape Amount of Fluid Obtained: 2,500 Fluid: clear Post Procedure Exam: awake, alert, normal BP, normal HR and normal SpO2 Patient Tolerated Procedure: well and no complications Complications: none Medical Decision Making 53-year-old male with a past medical history of known pancreatic cancer previously with hepatic abscesses cholecystitis ascending cholangitis which transition to chronic cholangitis, who was recently admitted transferred and discharged from [facility] on 01/15/2024, at which time he had 2 diagnostic paracenteses which were both negative for spontaneous bacterial peritonitis. He had 6 L removed on 01/13 with albumin replacement. Liver biopsy was performed on 01/12. Still pending pathology. He had Streptococcus constellatus bacteremia which is resolved and he is now taking continued antibiotic therapy of ceftriaxone and Flagyl daily. Who presents today for evaluation of abdominal distention. Patient states that for the last few days since being discharged she has had enlargement of his abdomen with achiness and pain. He denies fever or chills. He denies vomiting or diarrhea but does admit to diminished appetite. He denies any new chest pain or shortness of breath. No other complaints at this time. No other modifying factors. Exam demonstrates mildly dilated and distended abdomen with evidence to suggest ascites. He has no fever to suggest spontaneous bacterial peritonitis, however with his multiple recent paracenteses and biopsy, risk remains high. We will get a CT scan to rule out acute process prior to paracentesis. A good fluid pocket is noted on bedside ultrasound. Will get blood work monitor closely control his pain and reassess. Laboratory workup shows no white count, normal platelets. No bandemia. No ev idence to suggest infectious etiology. Electrolytes stable. proBNP normal. Lipase normal. Procalcitonin normal. Symptoms inconsistent with sepsis or septic shock. We discussed risks and benefits of paracentesis. Patient has consented. Paracentesis was performed and 2.5 L was removed. Fluid has 108 WBCs, with only 12% polymorphonuclear sites. Symptoms inconsistent for spontaneous bacterial peritonitis from an objective laboratory standpoint as well as a clinical standpoint. Patient has complete resolution of his symptoms after paracentesis. Patient feels well and is requesting discharge. Patient will be discharged home. Discussed red flags for which return, recommend continued antibiotic use and close follow-up with [facility]. I have extensively reviewed the treatment plan and discharge instructions with the patient and their family. I have addressed all patient concerns at this time. The patient and family was made aware of what symptoms to monitor for that would warrant a return to the emergency department. Discussed the plan with the patient and family, they demonstrate verbal understanding and agreement with our assessment and plan at this time. The documentation in this chart was dictated using [employer] dictation software. Please excuse any dictation errors. FINDINGS: VISUALIZED LUNG BASES: There is a moderate sized left pleural effusion again noted. Also some atelectasis and infiltrate in left lung base. Visualized right lung bases clear and there is no right-sided pleural effusion evident at this time. The previously present infiltrate in the posterior basal segment of the right lower lobe which was evident on 01/07/2024 has resolved. ABDOMEN: There is extensive severe ascites in the abdomen and pelvis which has further increased from 01/07/2024. LIVER: Liver appears cirrhotic. Some branching gas is seen within the liver which is difficult to determine as pneumobilia versus is air in the portal venous system. There is a E surgical or interventional placed device at the level of the capsule-other aspect of the lower right hepatic lobe inferiorly, unchanged. This may be from prior biopsy site. There is no subcapsular collection at this level. No intrahepatic collection nor abscess seen at this location nor elsewhere in the liver on this non infused study.. There are multiple stents again noted, unchanged. One of these is probably a TIPS. Another is within the main portal vein. Yet another is probably within the CBD. On this non infused study it is difficult to determine if there is still intraluminal thrombus within the main portal vein stent (as was previously the case on 01/07/2024. GALLBLADDER/BILIARY: Appears similar to previous difficult to assess given the amount of surrounding fluid from the generalized ascites. The gallbladder is not distended. There are CBD stents in place, one deployed with in the other. No significant waist narrowing. PANCREAS: Pancreatic tissue is difficult to delineate from surrounding structures. SPLEEN: Splenomegaly is again noted. Craniocaudal length of the spleen is 19.5 cm. ADRENALS: No obvious new findings. KIDNEYS:There is a solitary punctate nonobstructive calculus in the lower pole left kidney. No radiopaque calculi seen in the right kidney. No renal masses nor cysts. No hydronephrosis. No obvious solid renal masses.. ABDOMINAL AORTA: Abdominal aorta is not enlarged. LYMPH NODES: There appear to be multiple moderately enlarged mesenteric lymph nodes. ABDOMINAL WALL: No significant anterior abdominal hernia but there is a left inguinal hernia again noted which contains fluid within the hernia sac which extends down towards the scrotum. There do not appear to be bowel loops within this left inguinal hernia sac. GI: There is no evidence of bowel obstruction, free air, nor abscess. PELVIS: There is a large amount of ascites in the pelvis. LYMPH NODES: There is no intrapelvic nor inguinal adenopathy. GI: Appendix is not possible to be located.No evidence of obvious sigmoid diverticulitis. URINARY BLADDER: Moderately distended. No intraluminal mass nor radiopaque calculi. REPRODUCTIVE: Prostate size upper normal. OSSEOUS: No fractures nor significant osseous lesions. There is ankylosis/partial ankylosis of the sacroiliac joints noted. There is disc space narrowing with vacuum phenomena at L5-S1 level and there is broad annular bulging at this level. There is mild degenerative anterolisthesis L4 upon L5. IMPRESSION: 1. Severely cachectic patient with massive ascites in the abdomen and pelvis which has further progressed from 01/07/2024. Moderate size left pleural effusion. There is presently no right pleural effusion and the infiltrate previously present right lung base has resolved. 2. Cirrhotic liver with findings as above. Given that this is a noninfused study it is not possible to determine if there is persistent intraluminal thrombus within the main portal vein stent, as was evident on the prior study of 01/07/2024 CBD stent again noted. 3. Splenomegaly again noted. Multiple small lymph nodes noted in the mesentery. 4. Solitary nonobstructive small calculus in left kidney. No hydronephrosis. No other obvious findings in the kidneys and urinary bladder. Other findings as above Report called by myself to ER provider 01/20/2024 3:30 p.m. Quality:SDOH Health Related Social Needs: No Data to Display PFSH All Active Problems Ascites (Acute) Cholecystitis with cholangitis (Acute) Liver abscess and sequelae of chronic liver disease (Acute) Septic shock (Acute) Metastasis from pancreatic cancer (Acute) Hernia, inguinal, left (Acute) Abdominal pain (Acute) Abnormal weight loss (Acute) Asthma (Chronic) Hypertension (Chronic) Diabetes (Chronic) Screening for colon cancer (Acute) Abrasion, corneal (Acute) Eye foreign body (Acute) Social History Smoking/Tobacco Use Status: Former Tobacco Use Smoking risk assessment performed?: Yes Alcohol Intake: current Alcohol Intake frequency: a few times a month Drug use: Never Substance use type: does not use Housing: house Do you feel safe at home: Yes Do you feel safe in your relationship?: Yes
[2024-01-20 16:00] VITALS: BP 142/68; PULSE 105
[2024-01-20] MEDS: HYDROmorphone 2 MG/ML SYR 1 MG IVP (16:26)
[2024-01-20 16:57] LABS: Source Peritoneal
[2024-01-20 16:58] LABS: Mononuclear Cells 88 %; Nucleated Cells 108 uL (0); Polynuclear Cells 12 %
== END 2024-01-20 17:33 | disposition home or self-care (01) ==
PROVIDERS: Emergency Provider Student in an Organized Health Care Education/Training Program; PCP Family Medicine
DX: R18.8 Other ascites (principal); J90 Pleural effusion, not elsewhere classified; K74.60 Unspecified cirrhosis of liver; R16.1 Splenomegaly, not elsewhere classified; I10 Essential (primary) hypertension; E11.9 Type 2 diabetes mellitus without complications; C25.9 Malignant neoplasm of pancreas, unspecified; C78.7 Secondary malignant neoplasm of liver and intrahepatic bile duct; Z79.84 Long term (current) use of oral hypoglycemic drugs; Z79.4 Long term (current) use of insulin; Z87.891 Personal history of nicotine dependence
CPT/HCPCS: 36415; 49082; 80053; 82805; 82962; 83690; 84145; 87040; 96374; 96375; 99285; 74176; 82140; 83880; 85025; 85610; 85730; 87070; 87205; 89051; J1170; J2270

== ENCOUNTER 2024-01-21 12:04 | Outpatient (REF) | payer BC, SELFPAY ==
[2024-01-21 15:21] LABS: Vitamin B12 335 pg/mL (193-986)
== END 2024-01-21 12:05 | disposition home or self-care (01) ==
LOC: NCHCN 12:04
PROVIDERS: PCP Family Medicine; Visit Provider Family Medicine
DX: R20.2 Paresthesia of skin (principal)
CPT/HCPCS: 82607; 82746

== ENCOUNTER 2024-01-21 15:53 | Observation (INO) | payer BC, SELFPAY ==
[2024-01-21] VITALS (52 sets, daily range): BP systolic 94–132; BP diastolic 56–90; PULSE 87–110; RESP 16–20; TEMP 36.7–37.5; O2SAT 91–100
--- NOTE | 2024-01-21 16:12 | W.ED.GENAD ---
Discharge Plan Disposition Patient Disposition: Admit to [facility] Condition: Stable Discharge Details Clinical Impression: Ascites, Pleural effusion, Pancreatic carcinoma metastatic to liver, Portal vein thrombosis Primary Care Provider: Zohaib Camargo ED Provider: Trey Mays Home Meds and New Rx's Prescriptions: No Action albuterol sulfate 90 mcg/actuation HFA aerosol inhaler 2 puff inhalation Q6H PRN metformin 500 mg tablet 500 mg PO BID insulin glargine [Lantus Solostar U-100 Insulin] 100 unit/mL (3 mL) insulin pen 10 unit subcut QPM morphine 15 mg tablet extended release 15 mg PO Q12H Patient Comments: TAKE ONE TABLET BY MOUTH TWICE A DAY oxycodone 10 mg tablet 10 mg PO Q4H PRN Patient Comments: TAKE 1-2 TABLETS BY MOUTH EVERY 4 HOURS NEEDED FOR PAIN Jardiance 10 mg tablet 10 mg PO ONCE Patient Comments: TAKE ONE TABLET BY MOUTH EVERY DAY sennosides [senna] 8.6 mg tablet 8.6 mg PO DAILY Patient Comments: TAKE ONE TABLET BY MOUTH TWICE A DAY Creon 24,000-76,000 -120,000 unit capsule,delayed release(DR/EC) 4 cap PO .COMPLEX Patient Comments: TAKE FOUR CAPSULES BY MOUTH PER MEAL AND 2-3 PER SNACK (15 PER DAY) Rx Instructions: 4 caps orally with meals; potassium chloride 20 mEq tablet,ER particles/crystals 20 meq PO BID Patient Comments: TAKE ONE TABLET BY MOUTH TWICE A DAY levofloxacin 750 mg tablet Patient Comments: TAKE ONE TABLET BY MOUTH EVERY MORNING X30 HPI General Date/Time Provider Initiated Documentation: 01/21/24 15:55. HPI Narrative: 53 year-old male presents to ED today by POV/ambulating with a chief complaint of re-check- patient was seen yesterday for abdominal bloating in the setting of known pancreatic primary cancer, with recent liver biopsy, results pending- underwent paracentesis with ~3.5L drained here. He states his abdomen has completely filled back up today, he is nauseous, and dizzy all day with some LLQ tendenres near the paracentesis site. He had multiple recent diagnostic taps which were negative, and had a prior drainage of 6L on 01/12. Patient has follow-up scheduled tomorrow with Dr. Walsh of [facility] Heme/Onc service. Quality described as abdominal pain, nausea, dizziness, severe rapid increase in abdominal bloating since paracentesis yesterday, no radiation to fever, cough, chest pain, shortness of breath, hemoptysis, confusion, altered mentation, severe jaundice. Severity is described as severe. Palliating factors include frequent taps recently. Provoking factors include nothing specific. Events leading up to the incident/Associated Symptoms: Patient is unaware of liver biopsy results at this time. Patient has gone through 8 cycles of chemo and full radiation treatment regimen. Patient not anticoagulated. Related Data Home Medications ?Medication ?Instructions ?Recorded ?Confirmed albuterol sulfate 90 mcg/actuation 2 puff inhalation Q6H PRN 03/27/22 11/09/23 aerosol inhaler insulin glargine 100 unit/mL (3 10 unit subcut QPM 03/27/22 11/09/23 mL) subcutaneous pen (Lantus Solostar U-100 Insulin) metformin 500 mg tablet 500 mg PO BID 03/27/22 01/06/24 empagliflozin 10 mg tablet 10 mg PO ONCE 06/04/23 01/06/24 (Jardiance) morphine 15 mg tablet,extended 15 mg PO Q12H 06/04/23 01/06/24 release oxycodone 10 mg tablet 10 mg PO Q4H PRN 06/04/23 01/06/24 mcdcza-lxbocnhf-wlenqvl 4 cap PO .COMPLEX 07/31/23 01/06/24 24,000-76,000-120,000 unit capsule,delayed rel (Creon) potassium chloride 20 mEq 20 meq PO BID 07/31/23 01/06/24 tablet,extended release(part/cryst) sennosides 8.6 mg tablet (senna) 8.6 mg PO DAILY 07/31/23 11/09/23 levofloxacin 750 mg tablet mg 11/09/23 Allergies Allergy/AdvReac Type Severity Reaction Status Date / Time diphenhydramine Allergy Anaphylaxis Verified 01/21/24 16:11 General Stated Complaint: Abd Prob SHANNON: 3 Review of Systems All systems reviewed & are unremarkable except as noted in HPI and below Exam Narrative Exam Narrative: GENERAL APPEARANCE: Well-nourished, non-toxic, awake and alert, atraumatic, no acute distress. SKIN: Warm, pink, dry, intact, without rashes/lesions/ulcerations. HEAD: Normocephalic, atraumatic, normal hair distribution for gender/age. EYES: Normal conjunctiva, no exudates on lids/lashes. ENT: Nares patent, no circumoral cyanosis, no facial swelling NECK: Supple, trachea midline, painless cervical ROM. LUNGS/CHEST: Lungs CTA bilaterally, non-labored respirations, normal A/P diameter, symmetrical expansion, no chest wall deformity HEART (CV/PV): Regular rate and rhythm without murmur, no peripheral edema, no JVD. ABDOMEN: Soft, non-distended, no guarding. MSK: Normal ROM, no swelling/deformity to bilateral UEs or LEs, moving all extremities without weakness, no cyanosis, spine midline without tenderness, normal curvature. NEURO: Mental Status AAOx4 - alert to person, place, time, events No facial droop, no forehead involvement. Motor: No focal weakness - strength 5/5 in bilateral UEs and LEs, proximal and distal, symmetric. Sensory: sensation intact to light touch globally. Gait normal: patient ambulated without ataxia into ED room. PSYCH: euthymic, cooperative, pleasant, appropriate speech Course Vital Signs Vital signs: Vital Signs Temperature 36.7 C 01/21/24 15:57 Pulse 110 H 01/21/24 15:57 Respiratory Rate 20 01/21/24 15:57 Blood Pressure 130/90 01/21/24 15:57 Pulse Oximetry 98 01/21/24 15:57 Temperature 36.7 C 01/21/24 16:01 Pulse 110 H 01/21/24 16:01 Respiratory Rate 20 01/21/24 16:01 Respiratory Effort Normal 01/21/24 16:01 Blood Pressure 130/90 01/21/24 16:01 Blood Pressure Position Sitting 01/21/24 16:01 Pulse Oximetry 98 01/21/24 16:01 Oxygen Delivery Method Room Air 01/21/24 16:01 Oxygen Flow Rate 0 01/21/24 16:01 Pain Level 8 01/21/24 16:01 Medical Decision Making This dictation utilizes [id number] dictation software and may contain unedited grammatical errors. 53 year-old male presents to ED today by POV/ambulating with a chief complaint of re-check- patient was seen yesterday for abdominal bloating in the setting of known pancreatic primary cancer, with recent liver biopsy, results pending- underwent paracentesis with ~3.5L drained here. He states his abdomen has completely filled back up today, he is nauseous, and dizzy all day with some LLQ tendenres near the paracentesis site. He had multiple recent diagnostic taps which were negative, and had a prior drainage of 6L on 01/12. Patient has follow-up scheduled tomorrow with Dr. Walsh of [facility] Heme/Onc service. Quality described as abdominal pain, nausea, dizziness, severe rapid increase in abdominal bloating since paracentesis yesterday, no radiation to fever, cough, chest pain, shortness of breath, hemoptysis, confusion, altered mentation, severe jaundice. Severity is described as severe. Palliating factors include frequent taps recently. Provoking factors include nothing specific. Events leading up to the incident/Associated Symptoms: Patient is unaware of liver biopsy results at this time. Patient has gone through 8 cycles of chemo and full radiation treatment regimen. Patient not anticoagulated. Patients' medical history: Ascites, ascending cholangitis, known liver abscess, stage IV pancreatic cancer, asthma, hypertension, diabetes. Family and social history: No EtOH use at this time, lives with , no sick contacts. Pertinent exam findings / vital signs include severe ascites with left lower quadrant tenderness, lungs clear to auscultation, nontoxic vitals, afebrile, neuro intact, no severe jaundice. Differential / pathologies of concern include malignancy, cholangiitis, obstructive hepatopathy, less likely SBP. Diagnostic studies of: -CBC, BMP, lactate, lipase, magnesium, liver panel, PT/INR, UA, ammonia level, serial troponins, blood cultures, CT abdomen/pelvis with contrast. -CBC shows chronic leukopenia, chronic anemia with a significant drop of 0.9gm in the past 24 hours without symptoms of GI bleeding -Initial lactate 3.4, patient does not likely clear lactate due to hepatopathy -BMP shows mildly low sodium, normal kidney function, liver panel shows no significantly elevated bilirubin, LFTs within normal limits, low albumin of 2.6 -Magnesium within normal limits -UA shows no actionable abnormalities there is glucose spilling into the urine -PT/INR unremarkable -Ammonia unremarkable -Serial troponins negative -CT shows massive ascites in the abdomen and pelvis with a moderate size left pleural effusion, there is splenomegaly, completely occluded portal vein stent with likely malignancy, fluid in the gallbladder, left inguinal hernia containing ascitic fluid Interventions of: -hydromorphone PRN, compazine, 500mL bolus LR, consult [facility] heme/onc. -Consult with [facility] Heme/Onc Fellow Dr. Ward @ 2034, they would like to take the patient in transfer to [facility] for Pleurex drain- due to capacity this may need to be delayed til tomorrow. Patient has been requiring too much q2HR hydromorphone and compazine to tolerate it at home tonight. -Consulted with Dr. Gipson, we have possibility of placing a pleurex drain if we have supplies on site- which we would find out in the morning with central supply. Provisionally has medicine acceptance for [facility] when bed becomes available tomorrow- most likely in afternoon if we cannot provide palliative drain placement. -Consulted with Hospitalist Dr. Roblero who will admit the patient overnight. -Provisionally accepted for [facility] Medicine bed by Dr. Maddox at 2200 hrs, bed available likely tomorrow. ED Course/Assessment/Plan: Patient requiring Q2HR hydromorphone, compazine Q6hr. Needs palliative procedure, logistics pending, admit to [facility] to medicine, consults to Surgery, low likelihood of need for overnight paracentesis Findings not consistent with sepsis, SBP, DKA, respiratory distress. Disposition of Ascites, pleural effusion, pancreatic carcinoma metastatic to liver, portal vein thrombosis Patient verbalized understanding of the plan and return to ED criteria and engaged in shared decision making. Medical Records Medical records reviewed: Yes I reviewed the patient's medical records. Imaging Data Radiologic Study: Attestation: I personally reviewed and interpreted this imaging study as follows: Imaging: CT Scan Radiologist's impression: EXAM: CT ABDOMEN PELVIS W CLINICAL HISTORY: LLQ tenderness, recent procedures, ascites. TECHNIQUE: Imaging Protocol: Axial computed tomography images with coronal and sagittal reformatted images were created and reviewed CONTRAST MATERIAL: Intravenous: Omnipaque-350 100cc Oral: None COMPARISON: CT CT CHEST/ABD/PEL W from 01/07/[address] ABDOMEN PELVIS WO from 01/20/[address] scan 01/07/2024. FINDINGS: VISUALIZED LUNG BASES: The unilateral non loculated left pleural effusion is unchanged in size from yesterday and is associated with some volume loss in the left lower lobe basal segments. There is no pleural effusion on the opposite-right side. ABDOMEN: There is a massive amount of ascites again noted in the abdomen and pelvis and this is again noted to extend into a left inguinal hernia sac. There are stents again noted. In the CBD there is a stent within a stent again noted. The self expanding-type CBD stent measures approximately 7 cm. Adjacent to this is a larger caliber self expanding-type stent in the vertical part of the duodenal C-loop. The other stent is in the main portal vein extending from the portal vein confluence into the liver and this is occluded with thrombus. The splenic vein as well as collaterals appear patent. The superior mesenteric vein branches appear patent. The upper aspect of the superior mesenteric vein is circumferentially narrowed and but not occluded and does appear to reach the portal vein confluence. However, the main portal vein is occluded from the level of the portal vein confluence all the way through the entire length of the portal vein stent and into the liver. There is contrast enhancement within the intrahepatic left and portal vein which is probably by collateral flow. Intrahepatic systemic veins are opacified and drain into the nonoccluded IVC. LIVER: Somewhat cirrhotic appearance. Previously described device at the capsular surface of the inferior right hepatic lobe is again noted with no abnormal collection at this level around the liver nor in the subcapsular aspect of the liver at this level. There are no obvious liver masses. No dilated intrahepatic ducts. There is significantly less air within intrahepatic ducts than was evident yesterday. GALLBLADDER/BILIARY: There is a fluid around the gallbladder which is most probably related to the ascites. No obvious calcified gallstones. The gallbladder lumen does not appear distended, despite the presence of a stent in the CBD . PANCREAS: There is some air-gas in the pancreatic head which is probably within the pancreatic duct. Pancreatic head itself is somewhat difficult to delineate. SPLEEN: Splenomegaly again noted. No intrasplenic lesions. ADRENALS: There are no significant adrenal masses. KIDNEYS:No cysts evident. No solid renal masses. No calculi nor hydronephrosis.. ABDOMINAL AORTA: Abdominal aorta is not enlarged. LYMPH NODES:There is no retroperitoneal nor paraaortic adenopathy. ABDOMINAL WALL: Left inguinal hernia again noted which contains ascitic fluid but no bowel loops. GI: There is no evidence of bowel obstruction, free air, nor abscess. PELVIS: GI: No evidence of appendicitis.No evidence of sigmoid diverticulitis. LYMPH NODES: There is no intrapelvic nor inguinal adenopathy. REPRODUCTIVE: Prostate not enlarged. URINARY BLADDER: Bladder moderately distended. No obvious calculi nor masses in the lumen. OSSEOUS: No fractures and no significant osseous lesions. IMPRESSION: 1. Compared to the noninfused CT scan of 01/20/2024 there is again noted massive ascites in the abdomen and pelvis as well as a moderate sized left pleural effusion. No pleural effusion on the right side. 2. There is splenomegaly again noted. Craniocaudal length of the spleen measures 19.6 cm (normal less than 13 cm). There are no intrasplenic lesions evident nor evidence of intrasplenic abscess. 3. Massive ascites is probably related to combination of the malignancy and the fact that there is occlusion of the entire length of the portal vein stent. 4. No evidence of bowel obstruction. No evidence of obstruction of the urinary tracts. Lab Data Lab results reviewed: Yes I reviewed the patient's lab results. Labs: 01/21/24 16:55 Blood Blood Culture - Pending 01/21/24 17:12 Blood Blood Culture - Pending Laboratory Tests Range/Units 01/21/24 01/21/24 01/21/24 16:57 18:23 18:52 WBC (4.4-10.8) 10^3/uL 3.94 L RBC (4.36-5.78) 10^6/uL 3.05 L Hgb (13.5-17.5) g/dL 8.2 L Hct (40.0-50.0) % 26.8 L MCV (80-95) fL 88 MCH (27.0-33.0) pg 26.9 L MCHC (32.0-36.0) % 30.6 L RDW (11.8-14.1) % 18.5 H Plt Count (130-400) 10^3/uL 111 L MPV (8.0-11.0) fL 10.5 Immature Gran % % 0.5 Neutrophils % % 87.3 Lymphocytes % % 5.1 Monocytes % % 5.8 Eosinophils % % 1.0 Basophils % % 0.3 Nucleated RBC % (0.0-0.3) % 0.0 Absolute Neutrophils (1.2-6.7) 10^3/uL 3.44 Absolute Lymphocytes (1.2-3.4) 10^3/uL 0.20 L Absolute Monocytes (0.1-0.8) 10^3/uL 0.23 Absolute Eosinophils (0.0-0.7) 10^3/uL 0.04 Absolute Basophils (0.0-0.2) 10^3/uL 0.01 PT (9.1-11.1) sec 10.9 INR (0.9-1.1) 1.1 VBG Lactate (0.6-1.4) mmol/L 3.4 H* Sodium (136-145) mmol/L 135 L Potassium (3.5-5.1) mmol/L 3.8 Chloride (98-107) mmol/L 99 Carbon Dioxide (21.0-32.0) mmol/L 28.4 Anion Gap (3-11) mmol/L 7.6 BUN (7-18) mg/dL 9 Creatinine (0.70-1.30) mg/dL 1.1 Est GFR (CKD-EPI 2020) (mL/min/1.73m2) 79.28 Glucose (74-106) mg/dL 291 H Calcium (8.5-10.1) mg/dL 8.8 Magnesium (1.8-2.4) mg/dL 1.9 Total Bilirubin (0.2-1.0) mg/dL 0.23 Conjugated Bilirubin (0.0-0.2) mg/dL 0.1 AST (15-37) U/L 31 ALT (16-63) U/L 27 Alkaline Phosphatase (46-116) U/L 115 Ammonia (11-32) umol/L 29 Troponin I High Sens (< or =60) ng/L < 50 < 50 Total Protein (6.4-8.2) g/dL 7.4 Albumin (3.4-5.0) g/dL 2.6 L Lipase (16-77) U/L < 10 L Urine Color (Yellow) Yellow Urine Clarity (Clear) Clear Urine pH (5-8) 5.5 Ur Specific [place] (1.005-1.025) <= 1.005 Urine Protein (Neg-Trace) mg/dL Negative Urine Ketones (Negative) mg/dL Negative Urine Blood (Negative) Negative Urine Nitrite (Negative) Negative Urine Bilirubin (Negative) Negative Urine Urobilinogen (Up to 0.2) mg/dL 0.2 Ur Leukocyte Esterase (Negative) Negative Urine RBC (0-2) HPF 0-2 Urine WBC (0-5) HPF Negative Ur Epithelial Cells (Negative) HPF Many Urine Crystals (Negative) HPF Negative Urine Bacteria (Negative) HPF Negative Urine Mucus (Negative) Negative Ur Culture Indicated? No Urine Glucose (Negative) mg/dL >=1000 H Range/Units 01/21/24 19:24 WBC (4.4-10.8) 10^3/uL RBC (4.36-5.78) 10^6/uL Hgb (13.5-17.5) g/dL Hct (40.0-50.0) % MCV (80-95) fL MCH (27.0-33.0) pg MCHC (32.0-36.0) % RDW (11.8-14.1) % Plt Count (130-400) 10^3/uL MPV (8.0-11.0) fL Immature Gran % % Neutrophils % % Lymphocytes % % Monocytes % % Eosinophils % % Basophils % % Nucleated RBC % (0.0-0.3) % Absolute Neutrophils (1.2-6.7) 10^3/uL Absolute Lymphocytes (1.2-3.4) 10^3/uL Absolute Monocytes (0.1-0.8) 10^3/uL Absolute Eosinophils (0.0-0.7) 10^3/uL Absolute Basophils (0.0-0.2) 10^3/uL PT (9.1-11.1) sec INR (0.9-1.1) VBG Lactate (0.6-1.4) mmol/L Sodium (136-145) mmol/L Potassium (3.5-5.1) mmol/L Chloride (98-107) mmol/L Carbon Dioxide (21.0-32.0) mmol/L Anion Gap (3-11) mmol/L BUN (7-18) mg/dL Creatinine (0.70-1.30) mg/dL Est GFR (CKD-EPI 2020) (mL/min/1.73m2) Glucose (74-106) mg/dL Calcium (8.5-10.1) mg/dL Magnesium (1.8-2.4) mg/dL Total Bilirubin (0.2-1.0) mg/dL Conjugated Bilirubin (0.0-0.2) mg/dL AST (15-37) U/L ALT (16-63) U/L Alkaline Phosphatase (46-116) U/L Ammonia (11-32) umol/L Troponin I High Sens (< or =60) ng/L Cancelled Total Protein (6.4-8.2) g/dL Albumin (3.4-5.0) g/dL Lipase (16-77) U/L Urine Color (Yellow) Urine Clarity (Clear) Urine pH (5-8) Ur Specific [place] (1.005-1.025) Urine Protein (Neg-Trace) mg/dL Urine Ketones (Negative) mg/dL Urine Blood (Negative) Urine Nitrite (Negative) Urine Bilirubin (Negative) Urine Urobilinogen (Up to 0.2) mg/dL Ur Leukocyte Esterase (Negative) Urine RBC (0-2) HPF Urine WBC (0-5) HPF Ur Epithelial Cells (Negative) HPF Urine Crystals (Negative) HPF Urine Bacteria (Negative) HPF Urine Mucus (Negative) Ur Culture Indicated? Urine Glucose (Negative) mg/dL Quality:SDOH Health Related Social Needs: No Data to Display PFSH All Active Problems (Updated 01/21/24 @ 21:45 by ASA Romano) Portal vein thrombosis (Acute) Pancreatic carcinoma metastatic to liver (Acute) Pleural effusion (Acute) Ascites (Acute) Ascites (Acute) Cholecystitis with cholangitis (Acute) Liver abscess and sequelae of chronic liver disease (Acute) Septic shock (Acute) Metastasis from pancreatic cancer (Acute) Hernia, inguinal, left (Acute) Abdominal pain (Acute) Abnormal weight loss (Acute) Asthma (Chronic) Hypertension (Chronic) Diabetes (Chronic) Screening for colon cancer (Acute) Abrasion, corneal (Acute) Eye foreign body (Acute) Social History Smoking/Tobacco Use Status: Former Tobacco Use Smoking risk assessment performed?: Yes Alcohol Intake: current Alcohol Intake frequency: a few times a month Drug use: Never Substance use type: does not use Housing: house Do you feel safe at home: Yes Do you feel safe in your relationship?: Yes
[2024-01-21 17:08] LABS: Lactate 3.4 mmol/L (0.6-1.4)
[2024-01-21 17:10] LABS: Abs Immature Grans 0.02 10^3/uL (0.0-0.06); Absolute Basophil Count 0.01 10^3/uL (0.0-0.2); Absolute Eosinophil Count 0.04 10^3/uL (0.0-0.7); Absolute Monocyte Count 0.23 10^3/uL (0.1-0.8); Absolute Neutrophil Count 3.44 10^3/uL (1.2-6.7); Basophils % 0.3 %; HCT 26.8 % (40.0-50.0); HGB 8.2 g/dL (13.5-17.5); Immature Grans % 0.5 %; Lymphocytes % 5.1 %; MCH 26.9 pg (27.0-33.0); MCHC 30.6 % (32.0-36.0); MCV 88 fL (80-95); MPV 10.5 fL (8.0-11.0); Monocytes % 5.8 %; Neutrophils % 87.3 %; Platelet Count 111 10^3/uL (130-400); RBC 3.05 10^6/uL (4.36-5.78); RDW 18.5 % (11.8-14.1); RDW-SD 59.2 fL; WBC 3.94 10^3/uL (4.4-10.8)
[2024-01-21 17:21] LABS: INR 1.1 (0.9-1.1); Prothrombin Time 10.9 sec (9.1-11.1)
[2024-01-21 17:23] LABS: Ammonia 29 umol/L (11-32)
[2024-01-21 17:29] LABS: ALT 27 U/L (16-63); AST 31 U/L (15-37); Albumin 2.6 g/dL (3.4-5.0); Alkaline Phosphatase 115 U/L (46-116); Anion Gap 7.6 mmol/L (3-11); BUN 9 mg/dL (7-18); Bilirubin, Direct 0.1 mg/dL (0.0-0.2); Bilirubin, Total 0.23 mg/dL (0.2-1.0); CO2 28.4 mmol/L (21.0-32.0); CREATININE 1.1 mg/dL (0.70-1.30); Calcium 8.8 mg/dL (8.5-10.1); Chloride 99 mmol/L (98-107); Estimated GFR 79.28 (mL/min/1.73m2); Glucose 291 mg/dL (74-106); Lipase < 10 U/L (16-77); Magnesium 1.9 mg/dL (1.8-2.4); Potassium 3.8 mmol/L (3.5-5.1); Sodium 135 mmol/L (136-145); Total Protein 7.4 g/dL (6.4-8.2); Troponin I < 50 ng/L (< or =60)
[2024-01-21] MEDS: Lactated Ringers 250 ML IV (17:33)
[2024-01-21] MEDS: Prochlorperazine 10 MG/2 ML VIAL 5 MG IM (17:33)
[2024-01-21] MEDS: HYDROmorphone 2 MG/ML SYR 0.5 MG IVP ×4 (17:39→23:43)
[2024-01-21] MEDS: Normal Saline - Diluent 50 ML VIAL IJ (18:13)
[2024-01-21] MEDS: Omnipaque 350 MG/ML 100 ML BTL IJ (18:14)
--- NOTE | 2024-01-21 18:16 | DI.CT_ITS ---
Exam(s) CT ABDOMEN PELVIS W EXAM: CT ABDOMEN PELVIS W CLINICAL HISTORY: LLQ tenderness, recent procedures, ascites. TECHNIQUE: Imaging Protocol: Axial computed tomography images with coronal and sagittal reformatted images were created and reviewed CONTRAST MATERIAL: Intravenous: Omnipaque-350 100cc Oral: None COMPARISON: CT CT CHEST/ABD/PEL W from 01/07/[address] ABDOMEN PELVIS WO from 01/20/[address] scan 01/07/2024. FINDINGS: VISUALIZED LUNG BASES: The unilateral non loculated left pleural effusion is unchanged in size from y ester and is associated with some volume loss in the left lower lobe basal segments. There is no pleural effusion on the opposite-right side. ABDOMEN: There is a massive amount of ascites again noted in the abdomen and pelvis and this is again noted to extend into a left inguinal hernia sac. There are stents again noted. In the CBD there is a stent within a stent again noted. The self expa nding-type CBD stent measures approximately 7 cm. Adjacent to this is a larger caliber self expandin g-type stent in the vertical part of the duodenal C-loop. The other stent is in the main portal vein extending from the portal vein confluence into the liver a nd this is occluded with thrombus. The splenic vein as well as collaterals appear patent. The super ior mesenteric vein branches appear patent. The upper aspect of the superior mesenteric vein is circ umferentially narrowed and but not occluded and does appear to reach the portal vein confluence. How ever, the main portal vein is occluded from the level of the portal vein confluence all the way throu gh the entire length of the portal vein stent and into the liver. There is contrast enhancement with in the intrahepatic left and portal vein which is probably by collateral flow. Intrahepatic systemic veins are opacified and drain into the nonoccluded IVC. LIVER: Somewhat cirrhotic appearance. Previously described device at the capsular surface of the inf erior right hepatic lobe is again noted with no abnormal collection at this level around the liver no r in the subcapsular aspect of the liver at this level. There are no obvious liver masses. No dilat ed intrahepatic ducts. There is significantly less air within intrahepatic ducts than was evident ye sterday. GALLBLADDER/BILIARY: There is a fluid around the gallbladder which is most probably related to the as cites. No obvious calcified gallstones. The gallbladder lumen does not appear distended, despite th e presence of a stent in the CBD . PANCREAS: There is some air-gas in the pancreatic head which is probably within the pancreatic duct. Pancreatic head itself is somewhat difficult to delineate. SPLEEN: Splenomegaly again noted. No intrasplenic lesions. ADRENALS: There are no significant adrenal masses. KIDNEYS:No cysts evident. No solid renal masses. No calculi nor hydronephrosis.. ABDOMINAL AORTA: Abdominal aorta is not enlarged. LYMPH NODES:There is no retroperitoneal nor paraaortic adenopathy. ABDOMINAL WALL: Left inguinal hernia again noted which contains ascitic fluid but no bowel loops. GI: There is no evidence of bowel obstruction, free air, nor abscess. PELVIS: GI: No evidence of appendicitis.No evidence of sigmoid diverticulitis. LYMPH NODES: There is no intrapelvic nor inguinal adenopathy. REPRODUCTIVE: Prostate not enlarged. URINARY BLADDER: Bladder moderately distended. No obvious calculi nor masses in the lumen. OSSEOUS: No fractures and no significant osseous lesions. IMPRESSION: 1. Compared to the noninfused CT scan of 01/20/2024 there is again noted massive ascites in the abdom en and pelvis as well as a moderate sized left pleural effusion. No pleural effusion on the right si de. 2. There is splenomegaly again noted. Craniocaudal length of the spleen measures 19.6 cm (normal les s than 13 cm). There are no intrasplenic lesions evident nor evidence of intrasplenic abscess. 3. Massive ascites is probably related to combination of the malignancy and the fact that there is oc clusion of the entire length of the portal vein stent. 4. No evidence of bowel obstruction. No evidence of obstruction of the urinary tracts. RADIATION DOSE DELIVERED: 412.04mGy.cm Total DLP DATA REPOSITORY: All CT scans at this facility are submitted to the National Radiology Data Registry (NRDR) Dose Index Registry (DIR) with the [employer] (ACR). RADIATION OPTIMIZATION: All CT scans at this facility use at least one of these dose optimization te chniques: automated exposure control; mA and/or kV adjustment per patient size (includes targeted exa ms where dose is matched to clinical indication); or iterative reconstruction.
[2024-01-21 18:48] LABS: Bilirubin Negative (Negative); Blood Negative (Negative); Clarity Clear (Clear); Glucose >=1000 mg/dL (Negative); Ketones Negative (Negative); Leukocyte Esterase Negative (Negative); Nitrite Negative (Negative); Specific Gravity <= 1.005 (1.005-1.025); Urobilinogen 0.2 mg/dL (Up to 0.2); pH 5.5 (5-8)
[2024-01-21 18:53] LABS: RBC 0-2 HPF (0-2); WBC Negative HPF (0-5)
[2024-01-21 18:54] LABS: Bacteria Negative HPF (Negative); C & S Indicated? No; Crystals Negative HPF (Negative); Epithelial Cells Many HPF (Negative); Mucus Negative (Negative)
[2024-01-21 19:17] LABS: Troponin I < 50 ng/L (< or =60)
--- NOTE | 2024-01-21 20:30 | RT.EKG_ITS ---
APPROVED REPORT Exam: Resting ECG Reason for Exam: dizziness Patient Location: E HR:91 bpm ECG Measurements Heart Rate 91 AXIS MN 145 P 52 QRSd 88 QRS -52 QT 385 T 34 QTc 471 Conclusion Sinus rhythm, rate 91 No interval abnormality or ectopy No STEMI
[2024-01-21] MEDS: Lactated Ringers 1,000 ML 125 ML IV (21:41)
--- NOTE | 2024-01-21 22:03 | HPE_ITS ---
Date of service: 01/21/24 Time of Service: 22:03 Assessment and Plan Assessment and plan (1) Ascites: Status: Acute Assessment and plan: Malignant ascites rapidly accumulating. The goal is to get a Pleurx drain to allow continuous drainage. He is approaching palliative care mode. Most recent liver biopsy showed malignancy. Qualifiers: Ascites type: malignant Qualified Code(s): R18.0 - Malignant ascites (2) Portal vein thrombosis: Status: Acute Assessment and plan: The portal vein stent appears to have occluded which is the cause of the rapidly accumulating ascites. Goal is to have him evaluated at oncology for further and more definitive treatment of his rapidly accumulating ascites. (3) Pancreatic carcinoma metastatic to liver: Status: Acute Assessment and plan: Stage IV pancreatic cancer. He is still full code which needs to be addressed. Further follow-up with oncology and palliative care. (4) Pleural effusion: Status: Acute Assessment and plan: Pleural effusion does not appear to be symptomatic at this time (5) Diabetes: Status: Chronic Assessment and plan: Blood sugar quite elevated at 291. Will keep him on his basal insulin, Lantus 18 units at bedtime, add sliding scale for moderate control. Continue his other medicines except the metformin given his deteriorating condition and poor p.o. intake. History of Present Illness History of Present Illness Chief Complaint: Massive ascites/pain control/pancreatic cancer Narrative: 53-year-old male with pancreatic cancer status post chemotherapy and radiation therapy as well as multiple intrahepatic and pancreatic stents. He has had rapidly accumulating ascites over the last several weeks. He had 6 L tapped on 01/13/2024 and 3.5 L tapped on 01/20/2024. He saw his primary today, Dr. Camargo, who made adjustments to his insulin. He had been nauseous and dizzy all day with left lower quadrant tenderness. In the emergency room a repeat CT scan showed massive ascites and moderate left pleural effusion with splenomegaly. The portal vein stent appears completely occluded with malignancy surrounding it. Patient received multiple doses of Compazine and Dilaudid for symptom control. [facility] oncology was contacted and felt he should be evaluated there but they had capacity issues. He is admitted to observation status with planned ER to ER transfer in the a.m. for evaluation for a Pleurx drain via interventional radiology. (Dr. Gipson from general surgery was consulted here with was not sure we had the equipment to do the procedure). Review of Systems Narrative: He is mostly complaining of pain in the left lower quadrant. He has profound nausea and no appetite. He is not having any chest pain or shortness of breath. He is having some dizziness. He has had a profound weight loss through this illness. He feels his baseline weight is about 130 pounds though with the ascites he can go up to as high as 150 pounds. He has not been able to eat or take in adequate calories during this illness. PFSH All Active Problems (Updated 01/21/24 @ 22:12 by Saravanan Roblero MD) Portal vein thrombosis (Acute) Pancreatic carcinoma metastatic to liver (Acute) Pleural effusion (Acute) Ascites (Acute) Diabetes (Chronic) Medical History (Updated 01/21/24 @ 22:12 by Saravanan Roblero MD) Eye foreign body Abrasion, corneal Screening for colon cancer Hypertension Asthma Abnormal weight loss Abdominal pain Septic shock Hernia, inguinal, left Metastasis from pancreatic cancer Liver abscess and sequelae of chronic liver disease Cholecystitis with cholangitis Ascites Social History Smoking/Tobacco Use Status: Former Tobacco Use Smoking risk assessment performed?: Yes Alcohol Intake: current Alcohol Intake frequency: a few times a month Drug use: Never Substance use type: does not use Housing: house Do you feel safe at home: Yes Do you feel safe in your relationship?: Yes Meds Allergies and Home Medications Allergies Allergy/AdvReac Type Severity Reaction Status Date / Time diphenhydramine Allergy Anaphylaxis Verified 01/21/24 16:11 Home Medications ?Medication ?Instructions ?Recorded ?Confirmed ?Type albuterol sulfate 90 mcg/actuation 2 puff inhalation Q6H PRN 03/27/22 11/09/23 History aerosol inhaler insulin glargine 100 unit/mL (3 10 unit subcut QPM 03/27/22 11/09/23 History mL) subcutaneous pen (Lantus Solostar U-100 Insulin) metformin 500 mg tablet 500 mg PO BID 03/27/22 01/06/24 History empagliflozin 10 mg tablet 10 mg PO ONCE 06/04/23 01/06/24 History (Jardiance) morphine 15 mg tablet,extended 15 mg PO Q12H 06/04/23 01/06/24 History release oxycodone 10 mg tablet 10 mg PO Q4H PRN 06/04/23 01/06/24 History mikudo-pzvawktu-eoivtvt 4 cap PO .COMPLEX 07/31/23 01/06/24 History 24,000-76,000-120,000 unit capsule,delayed rel (Creon) potassium chloride 20 mEq 20 meq PO BID 07/31/23 01/06/24 History tablet,extended release(part/cryst) sennosides 8.6 mg tablet (senna) 8.6 mg PO DAILY 07/31/23 11/09/23 History levofloxacin 750 mg tablet mg 11/09/23 History Exam Narrative Exam Narrative: On exam he appeared somewhat cachectic but does have a massive abdomen. He is alert and conversant and in no significant distress though sedated by the Dilaudid. Breathing was not labored. Lungs were clear to auscultation. Heart somewhat hyperdynamic but no significant murmur. Abdomen quite enlarged but not tense and not really all that tender to light palpation in all 4 quadrants. There was no guarding or rebound. There is obvious ascitic fluid. The lower extremity showed no edema and appear well perfused. Neurologically there are no focal deficits. Results Labs 01/21/24 16:57 01/21/24 16:57 Labs: Laboratory Results - last 24 hr 01/21/24 01/21/24 01/21/24 16:57 18:23 18:52 WBC 3.94 L RBC 3.05 L Hgb 8.2 L Hct 26.8 L MCV 88 MCH 26.9 L MCHC 30.6 L RDW 18.5 H Plt Count 111 L MPV 10.5 Immature Gran % 0.5 Neutrophils % 87.3 Lymphocytes % 5.1 Monocytes % 5.8 Eosinophils % 1.0 Basophils % 0.3 Nucleated RBC % 0.0 Absolute Neutrophils 3.44 Absolute Lymphocytes 0.20 L Absolute Monocytes 0.23 Absolute Eosinophils 0.04 Absolute Basophils 0.01 PT 10.9 INR 1.1 VBG Lactate 3.4 H* Sodium 135 L Potassium 3.8 Chloride 99 Carbon Dioxide 28.4 Anion Gap 7.6 BUN 9 Creatinine 1.1 Est GFR (CKD-EPI 2020) 79.28 Glucose 291 H Calcium 8.8 Magnesium 1.9 Total Bilirubin 0.23 Conjugated Bilirubin 0.1 AST 31 ALT 27 Alkaline Phosphatase 115 Ammonia 29 Troponin I High Sens < 50 < 50 Total Protein 7.4 Albumin 2.6 L Lipase < 10 L Urine Color Yellow Urine Clarity Clear Urine pH 5.5 Ur Specific [place] <= 1.005 Urine Protein Negative Urine Ketones Negative Urine Blood Negative Urine Nitrite Negative Urine Bilirubin Negative Urine Urobilinogen 0.2 Ur Leukocyte Esterase Negative Urine RBC 0-2 Urine WBC Negative Ur Epithelial Cells Many Urine Crystals Negative Urine Bacteria Negative Urine Mucus Negative Ur Culture Indicated? No Urine Glucose >=1000 H 01/21/24 19:24 WBC RBC Hgb Hct MCV MCH MCHC RDW Plt Count MPV Immature Gran % Neutrophils % Lymphocytes % Monocytes % Eosinophils % Basophils % Nucleated RBC % Absolute Neutrophils Absolute Lymphocytes Absolute Monocytes Absolute Eosinophils Absolute Basophils PT INR VBG Lactate Sodium Potassium Chloride Carbon Dioxide Anion Gap BUN Creatinine Est GFR (CKD-EPI 2020) Glucose Calcium Magnesium Total Bilirubin Conjugated Bilirubin AST ALT Alkaline Phosphatase Ammonia Troponin I High Sens Cancelled Total Protein Albumin Lipase Urine Color Urine Clarity Urine pH Ur Specific [place] Urine Protein Urine Ketones Urine Blood Urine Nitrite Urine Bilirubin Urine Urobilinogen Ur Leukocyte Esterase Urine RBC Urine WBC Ur Epithelial Cells Urine Crystals Urine Bacteria Urine Mucus Ur Culture Indicated? Urine Glucose Last Vital Signs Temp 37.5 C 01/21/24 18:54 Pulse 89 01/21/24 20:45 Resp 20 01/21/24 16:01 BP 108/66 01/21/24 20:45 Pulse Ox 100 01/21/24 20:13 Time Spent Time spent with Patient: <40 minutes Time was spent: preparing to see the patient(eg.review tests), obtaining and/or reviewing separately otained hiistory, ordering medications,tests, procedures, referring, communicating with other health career technical education instructor, indepentently interpreting results and counseling the patient
--- NOTE | 2024-01-21 23:17 | W.PCEDHO ---
Registration Status: Primary Language: Preferred Language: ED Information & Data Chief Complaint Abd Prob 01/21/24 16:12 Triage Note Abd is bloated and firm, 01/21/24 15:57 potentially related to pancreatic cancer. States it was cared for yesterday and improved then, worse nausea and dizziness worse today. Medical / Surgical History (Last Updated 01/21/24 @ 22:09 by Saravanan Roblero MD) Eye foreign body Abrasion, corneal Screening for colon cancer Hypertension Asthma Abnormal weight loss Abdominal pain Septic shock Hernia, inguinal, left Metastasis from pancreatic cancer Liver abscess and sequelae of chronic liver disease Cholecystitis with cholangitis Ascites Most Recent Vital Signs Temperature 37.5 C 01/21/24 18:54 Temperature Source Oral 01/21/24 18:54 Pulse 87 01/21/24 23:00 Respiratory Rate 20 01/21/24 16:01 Respiratory Effort Normal 01/21/24 16:01 Blood Pressure 98/56 L 01/21/24 23:00 Blood Pressure Mean 68 01/21/24 23:00 Blood Pressure Position Sitting 01/21/24 16:01 Pulse Oximetry 95 01/21/24 23:01 Oxygen Delivery Method Room Air 01/21/24 16:01 Oxygen Flow Rate 0 01/21/24 16:01 Pain Level 8 01/21/24 16:01 Allergies diphenhydramine Allergy (Verified 01/21/24 16:11) Anaphylaxis Active Medications Generic Name Dose Route Start Last Admin Trade Name Freq PRN Reason Stop Dose Admin Hydromorphone HCl 0.5 mg 01/21/24 20:36 01/21/24 20:40 Hydromorphone 2 Mg/Ml Syr IVP 0.5 mg Q2H PRN PRN Administration Ringer's Solution 1,000 mls @ 125 mls/hr 01/21/24 21:15 01/21/24 21:41 IV 125 mls/hr INFUSION TED Administration Iohexol 100 ml 01/21/24 18:15 01/21/24 18:14 Omnipaque 350 Mg/Ml 100 Ml Btl IJ 02/20/24 23:59 100 ml DIRECTED TED Administration Sodium Chloride 50 ml 01/21/24 18:15 01/21/24 18:13 Normal Saline - Diluent 50 Ml Vial IJ 50 ml .FOR DI USE TED Administration IV IV Catheter Type [Left Forearm Saline Lock ] IV Catheter Gauge [Left 18 Forearm] Diet Orders Category Date Time Status npo [Nothing Per Oral] [DIET] Nutrition 01/22/24 Breakfast Ordered Diagnostics 01/21/24 01/21/24 01/21/24 Range/Units 19:24 18:52 18:23 WBC (4.4-10.8) 10^3/uL RBC (4.36-5.78) 10^6/uL Hgb (13.5-17.5) g/dL Hct (40.0-50.0) % MCV (80-95) fL MCH (27.0-33.0) pg MCHC (32.0-36.0) % RDW (11.8-14.1) % Plt Count (130-400) 10^3/uL MPV (8.0-11.0) fL Immature Gran % % Neutrophils % % Lymphocytes % % Monocytes % % Eosinophils % % Basophils % % Nucleated RBC % (0.0-0.3) % Absolute Neutrophils (1.2-6.7) 10^3/uL Absolute Lymphocytes (1.2-3.4) 10^3/uL Absolute Monocytes (0.1-0.8) 10^3/uL Absolute Eosinophils (0.0-0.7) 10^3/uL Absolute Basophils (0.0-0.2) 10^3/uL PT (9.1-11.1) sec INR (0.9-1.1) VBG Lactate (0.6-1.4) mmol/L Sodium (136-145) mmol/L Potassium (3.5-5.1) mmol/L Chloride (98-107) mmol/L Carbon Dioxide (21.0-32.0) mmol/L Anion Gap (3-11) mmol/L BUN (7-18) mg/dL Creatinine (0.70-1.30) mg/dL Est GFR (CKD-EPI 2020) (mL/min/1.73m2) Glucose (74-106) mg/dL Calcium (8.5-10.1) mg/dL Magnesium (1.8-2.4) mg/dL Total Bilirubin (0.2-1.0) mg/dL Conjugated Bilirubin (0.0-0.2) mg/dL AST (15-37) U/L ALT (16-63) U/L Alkaline Phosphatase (46-116) U/L Ammonia (11-32) umol/L Troponin I High Sens Cancelled < 50 (< or =60) ng/L Total Protein (6.4-8.2) g/dL Albumin (3.4-5.0) g/dL Lipase (16-77) U/L Urine Color Yellow (Yellow) Urine Clarity Clear (Clear) Urine pH 5.5 (5-8) Ur Specific [place] <= 1.005 (1.005-1.025) Urine Protein Negative (Neg-Trace) mg/dL Urine Ketones Negative (Negative) mg/dL Urine Blood Negative (Negative) Urine Nitrite Negative (Negative) Urine Bilirubin Negative (Negative) Urine Urobilinogen 0.2 (Up to 0.2) mg/dL Ur Leukocyte Esterase Negative (Negative) Urine RBC 0-2 (0-2) HPF Urine WBC Negative (0-5) HPF Ur Epithelial Cells Many (Negative) HPF Urine Crystals Negative (Negative) HPF Urine Bacteria Negative (Negative) HPF Urine Mucus Negative (Negative) Ur Culture Indicated? No Urine Glucose >=1000 H (Negative) mg/dL 01/21/24 Range/Units 16:57 WBC 3.94 L (4.4-10.8) 10^3/uL RBC 3.05 L (4.36-5.78) 10^6/uL Hgb 8.2 L (13.5-17.5) g/dL Hct 26.8 L (40.0-50.0) % MCV 88 (80-95) fL MCH 26.9 L (27.0-33.0) pg MCHC 30.6 L (32.0-36.0) % RDW 18.5 H (11.8-14.1) % Plt Count 111 L (130-400) 10^3/uL MPV 10.5 (8.0-11.0) fL Immature Gran % 0.5 % Neutrophils % 87.3 % Lymphocytes % 5.1 % Monocytes % 5.8 % Eosinophils % 1.0 % Basophils % 0.3 % Nucleated RBC % 0.0 (0.0-0.3) % Absolute Neutrophils 3.44 (1.2-6.7) 10^3/uL Absolute Lymphocytes 0.20 L (1.2-3.4) 10^3/uL Absolute Monocytes 0.23 (0.1-0.8) 10^3/uL Absolute Eosinophils 0.04 (0.0-0.7) 10^3/uL Absolute Basophils 0.01 (0.0-0.2) 10^3/uL PT 10.9 (9.1-11.1) sec INR 1.1 (0.9-1.1) VBG Lactate 3.4 H* (0.6-1.4) mmol/L Sodium 135 L (136-145) mmol/L Potassium 3.8 (3.5-5.1) mmol/L Chloride 99 (98-107) mmol/L Carbon Dioxide 28.4 (21.0-32.0) mmol/L Anion Gap 7.6 (3-11) mmol/L BUN 9 (7-18) mg/dL Creatinine 1.1 (0.70-1.30) mg/dL Est GFR (CKD-EPI 2020) 79.28 (mL/min/1.73m2) Glucose 291 H (74-106) mg/dL Calcium 8.8 (8.5-10.1) mg/dL Magnesium 1.9 (1.8-2.4) mg/dL Total Bilirubin 0.23 (0.2-1.0) mg/dL Conjugated Bilirubin 0.1 (0.0-0.2) mg/dL AST 31 (15-37) U/L ALT 27 (16-63) U/L Alkaline Phosphatase 115 (46-116) U/L Ammonia 29 (11-32) umol/L Troponin I High Sens < 50 (< or =60) ng/L Total Protein 7.4 (6.4-8.2) g/dL Albumin 2.6 L (3.4-5.0) g/dL Lipase < 10 L (16-77) U/L Urine Color (Yellow) Urine Clarity (Clear) Urine pH (5-8) Ur Specific [place] (1.005-1.025) Urine Protein (Neg-Trace) mg/dL Urine Ketones (Negative) mg/dL Urine Blood (Negative) Urine Nitrite (Negative) Urine Bilirubin (Negative) Urine Urobilinogen (Up to 0.2) mg/dL Ur Leukocyte Esterase (Negative) Urine RBC (0-2) HPF Urine WBC (0-5) HPF Ur Epithelial Cells (Negative) HPF Urine Crystals (Negative) HPF Urine Bacteria (Negative) HPF Urine Mucus (Negative) Ur Culture Indicated? Urine Glucose (Negative) mg/dL 01/21/24 16:55 Blood Culture - Pending Blood 01/21/24 17:12 Blood Culture - Pending Blood Intake and Output - 24 Hour Total 01/21/24 15:53 thru 01/21/24 20:42 Intake Total 280 Balance 280 Weight 66.7 kg Intake: IV 280 Falls Risk Assessment History of Falls No History 01/21/24 16:01 Contributing Factors No Factors 01/21/24 16:01 Ambulatory Aids Independent 01/21/24 16:01 Tubes/Lines None 01/21/24 16:01 Gait Evaluation No gait disturbance 01/21/24 16:01 Cognition No cognitive impairment 01/21/24 16:01 Fall Total Score 0 01/21/24 16:01 Level of Risk Standard/Low Risk 01/21/24 16:01 Problems (Last Updated 01/21/24 @ 22:09 by Saravanan Roblero MD) Portal vein thrombosis (Acute) Pancreatic carcinoma metastatic to liver (Acute) Pleural effusion (Acute) Ascites (Acute) Diabetes (Chronic) v v v v v v v v v Sending and/or Receiving Nurses: Please use comment section below to note any information pertinent to the patient hand-off not included above. Information / Comments: 53 yo male malignant pancreatic cancer that has spread to the liver tapped yesterday- 3.5L tapped 01/13/24 at [facility]- 6L Hepatic stent is occluded Left pleural effusion ascites 18g LFA, has a port that was accessed by [facility] recently for antibiotics last bp 98/56 A&O was given 0.5mg dilauded at 2039 has LR running @125ml/h, will stop before bringing him up Jardiance was not given, pt states he takes in the day time will be transfered to [facility] in the morning for a pleurex for comfort Report received from: Lane @ [id number]
[2024-01-22] MEDS: HYDROmorphone 2 MG/ML SYR 0.5 MG IVP ×3 (02:07→18:52)
[2024-01-22 07:17] LABS: Abs Immature Grans 0.01 10^3/uL (0.0-0.06); Absolute Eosinophil Count 0.08 10^3/uL (0.0-0.7); Absolute Lymphocyte Count 0.21 10^3/uL (1.2-3.4); Absolute Monocyte Count 0.14 10^3/uL (0.1-0.8); Absolute Neutrophil Count 1.71 10^3/uL (1.2-6.7); Eosinophils % 3.7 %; HCT 23.8 % (40.0-50.0); HGB 7.3 g/dL (13.5-17.5); Immature Grans % 0.5 %; Lymphocytes % 9.8 %; MCH 26.8 pg (27.0-33.0); MCHC 30.7 % (32.0-36.0); MCV 88 fL (80-95); Monocytes % 6.5 %; Neutrophils % 79.5 %; Platelet Count 104 10^3/uL (130-400); RBC 2.72 10^6/uL (4.36-5.78); RDW 18.6 % (11.8-14.1); RDW-SD 59.5 fL; WBC 2.15 10^3/uL (4.4-10.8)
[2024-01-22 07:49] LABS: Anion Gap 7.3 mmol/L (3-11); BUN 10 mg/dL (7-18); CO2 29.7 mmol/L (21.0-32.0); CREATININE 0.8 mg/dL (0.70-1.30); Calcium 8.3 mg/dL (8.5-10.1); Chloride 105 mmol/L (98-107); Estimated GFR 104.51 (mL/min/1.73m2); Glucose 67 mg/dL (74-106); Potassium 3.3 mmol/L (3.5-5.1); Sodium 142 mmol/L (136-145)
[2024-01-22 08:20] VITALS: BP 102/74; PULSE 83; RESP 15; TEMP 36.9; O2SAT 96
[2024-01-22] MEDS: Prochlorperazine 10 MG/2 ML VIAL 5 MG IVP (08:25)
[2024-01-22] MEDS: Enoxaparin 40 MG/0.4 ML SYR SC (09:29)
[2024-01-22] MEDS: POTASSIUM CHLORIDE 10 MEQ/100 ML BAG 100 MEQ IVINF ×3 (09:30→12:53)
[2024-01-22] MEDS: Furosemide 20 MG/2 ML VIAL IVP (11:08)
[2024-01-22] MEDS: Spironolactone 25 MG TAB 12.5 MG PO (11:09)
[2024-01-22] MEDS: levoFLOXacin 750 MG/150 ML BAG 100 MG IVPB (12:50)
--- NOTE | 2024-01-22 14:30 | CHAPLAIN ---
Vitaly was in bed resting when I visited. There were two friends and a service dog visiting him when I stopped in. We had a brief visit. I explained my role and offered support. Vitaly as stage IV pancreatic cancer. He's been in the ED recently to have fluid drained.
[2024-01-22 15:01] VITALS: BP 110/91; PULSE 95; RESP 15; TEMP 36.6; O2SAT 100
[2024-01-22] MEDS: Furosemide 20 MG TAB PO (16:04)
--- NOTE | 2024-01-22 16:15 | NUR.NOTE ---
Nursing Note: Pt is agitated that he has not heard anything from [facility] today yet. Discussed with CM and Hospitalist, agreed to allow him to eat and drink, then place back on NPO status at [place]. Pt agrees to this plan.
[2024-01-22] MEDS: Creon, Lipase 24,000 CAPCR 4 CAP PO (16:54)
--- NOTE | 2024-01-22 17:13 | DSE_ITS ---
Date of service: 01/22/24 Time of Service: 17:14 DS: Diagnosis Discharge Diagnosis (1) Ascites: Status: Acute (2) Portal vein thrombosis: Status: Acute (3) Pancreatic carcinoma metastatic to liver: Status: Acute (4) Pleural effusion: Status: Acute (5) Diabetes: Status: Chronic Discharge Plan Disposition Patient Disposition: Transfer-Acute Inpatient Care Specific Acute Inpt Facility: [facility] Condition: Stable Discharge Details Reason For Visit: Stage IV pancreatic cancer/massive ascites/.... Admit Date/Time: 01/21/24 21:59 Admit Provider: Saravanan Roblero Attending Provider: Saravanan Roblero Primary Care Provider: Zohaib Camargo Hospital Course Hospital Course: 53 yo M with DM known metastatic pancreatic cancer and recently biopsied new liver metastases, with recent admission 01/06 to [facility] with septic shock presented to [facility] ED with rapidly accumulating and painful ascites. He had 6L paracentesis 01/12 and 3.5L paracentsis 01/19 in the ED, but retured 01/[address] confirmed massive ascites, left pleural effusion, and complete occlusion of the portal vein stent. The patient was reviewed and accepted by [facility] pending bed availability. Surgical consult here felt she could place pleurex catheter, but did not feel comfortable with this if chemotherapy was planned due to infection risk. The case was reviewed with his primary oncologist Dr. Bliss, who felt pleurex catheter may be indicated either way, but the fluid analysis from 01/12 suggested exudative rather than clearly malignant effusion, and we decided to try diuresis to try to control ascites. The patient was given 20mg IV furosemide and started on spironolactone 12.5mg BID. His pain was treated with hydromorphone and nausea with prochlorperazine. His potassium was low and was supplemented. Previously prescribed levofloxacin was continued. The positive biopsy of the liver was discussed with the patient, with discussion of options deferred to the oncology team. Portal vein thrombosis was not treated with anticoagulation. He did get a dose of prophylactic dose enoxaparin Palliative care was consulted but was not able to see the patient before transfer. Home Meds and New Rx's Prescriptions: No Action albuterol sulfate 90 mcg/actuation HFA aerosol inhaler 2 puff inhalation Q6H PRN metformin 500 mg tablet 500 mg PO BID insulin glargine [Lantus Solostar U-100 Insulin] 100 unit/mL (3 mL) insulin pen 10 unit subcut QPM morphine 15 mg tablet extended release 15 mg PO Q12H Patient Comments: TAKE ONE TABLET BY MOUTH TWICE A DAY oxycodone 10 mg tablet 10 mg PO Q4H PRN Patient Comments: TAKE 1-2 TABLETS BY MOUTH EVERY 4 HOURS NEEDED FOR PAIN Jardiance 10 mg tablet 10 mg PO ONCE Patient Comments: TAKE ONE TABLET BY MOUTH EVERY DAY sennosides [senna] 8.6 mg tablet 8.6 mg PO DAILY Patient Comments: TAKE ONE TABLET BY MOUTH TWICE A DAY Creon 24,000-76,000 -120,000 unit capsule,delayed release(DR/EC) 4 cap PO .COMPLEX Patient Comments: TAKE FOUR CAPSULES BY MOUTH PER MEAL AND 2-3 PER SNACK (15 PER DAY) Rx Instructions: 4 caps orally with meals; potassium chloride 20 mEq tablet,ER particles/crystals 20 meq PO BID Patient Comments: TAKE ONE TABLET BY MOUTH TWICE A DAY metronidazole 500 mg tablet 500 mg PO TID Patient Comments: TAKE ONE TABLET BY MOUTH THREE TIMES A DAY FOR 7 DAYS Discharge Instructions Activity:: Activity as Tolerated Equipment/Supplies:: No Equipment Needed Diet:: As Tolerated Discharge Orders Discharge Orders: Discharge Order (Routine); Ordered 01/22/24 Ordered By: Derian Sánchez DS: Summary Time Spent with Patient providing and/or coordinating discharge services: Greater than 30 minutes Status at Discharge Functional status at discharge: bed bound Overall status at discharge: patient is not back to baseline Mental Status: mental status grossly normal Speech and Movement: speech and movement normal Mood: congruent mood Affect: normal affect Quality:SDOH Health Related Social Needs: No Data to Display Exam Narrative Exam Narrative: On exam he appears fatigued, somewhat cachectic but does have a massive abdomen. He is alert and conversant.. Breathing was not labored, Lungs were clear to auscultation. Heart somewhat hyperdynamic but no significant murmur. Abdomen quite enlarged but not tense and minimally tender to light palpation in all 4 quadrants. There was no guarding or rebound. There is obvious ascitic fluid. The lower extremity showed no edema and appear well perfused. Psych Mental Status: mental status grossly normal Speech and Movement: speech and movement normal Mood: congruent mood Affect: normal affect DS: Data Vitals/I&O Vitals and I&O: Vital Signs Temperature 36.6 C 01/22/24 15:01 Temperature Source Skin 01/22/24 15:01 Pulse 95 H 01/22/24 15:01 Pulse Rhythm Regular 01/21/24 23:27 Respiratory Rate 15 01/22/24 15:01 Respiratory Effort Normal 01/21/24 23:27 Respiratory Depth Normal 01/21/24 23:27 Respiratory Pattern Normal 01/21/24 23:27 Blood Pressure 110/91 H 01/22/24 15:01 Blood Pressure Mean 68 01/21/24 23:00 Blood Pressure Position Sitting 01/21/24 16:01 Pulse Oximetry 100 01/22/24 15:01 Oxygen Delivery Method Room Air 01/22/24 15:01 Oxygen Flow Rate 0 01/22/24 15:01 Pain Level 0 01/22/24 15:01 Intake & Output 01/21/24 01/22/24 01/22/24 23:59 11:59 23:59 Intake Total 280 / 280 100 / 1450 1350 / 1450 Balance 280 / 280 100 / 1450 1350 / 1450 Weight 68.855 kg Intake: IV 280 / 280 100 / 1450 1350 / 1450 Data Completed and Pending Labs on day of discharge: Labs from last 24 hours 01/22/24 01/21/24 01/21/24 06:00 19:24 18:52 WBC 2.15 L RBC 2.72 L Hgb 7.3 L Hct 23.8 L MCV 88 MCH 26.8 L MCHC 30.7 L RDW 18.6 H Plt Count 104 L MPV 11.0 Immature Gran % 0.5 Neutrophils % 79.5 Lymphocytes % 9.8 Monocytes % 6.5 Eosinophils % 3.7 Basophils % 0.0 Nucleated RBC % 0.0 Absolute Neutrophils 1.71 Absolute Lymphocytes 0.21 L Absolute Monocytes 0.14 Absolute Eosinophils 0.08 Absolute Basophils 0.00 PT INR Sodium 142 Potassium 3.3 L Chloride 105 Carbon Dioxide 29.7 Anion Gap 7.3 BUN 10 Creatinine 0.8 Est GFR (CKD-EPI 2020) 104.51 Glucose 67 L Calcium 8.3 L Magnesium Total Bilirubin Conjugated Bilirubin AST ALT Alkaline Phosphatase Ammonia Troponin I High Sens Cancelled < 50 Total Protein Albumin Lipase Urine Color Urine Clarity Urine pH Ur Specific [place] Urine Protein Urine Ketones Urine Blood Urine Nitrite Urine Bilirubin Urine Urobilinogen Ur Leukocyte Esterase Urine RBC Urine WBC Ur Epithelial Cells Urine Crystals Urine Bacteria Urine Mucus Ur Culture Indicated? Urine Glucose 01/21/24 01/21/24 18:23 16:57 WBC RBC Hgb Hct MCV MCH MCHC RDW Plt Count MPV Immature Gran % Neutrophils % Lymphocytes % Monocytes % Eosinophils % Basophils % Nucleated RBC % Absolute Neutrophils Absolute Lymphocytes Absolute Monocytes Absolute Eosinophils Absolute Basophils PT 10.9 INR 1.1 Sodium 135 L Potassium 3.8 Chloride 99 Carbon Dioxide 28.4 Anion Gap 7.6 BUN 9 Creatinine 1.1 Est GFR (CKD-EPI 2020) 79.28 Glucose 291 H Calcium 8.8 Magnesium 1.9 Total Bilirubin 0.23 Conjugated Bilirubin 0.1 AST 31 ALT 27 Alkaline Phosphatase 115 Ammonia 29 Troponin I High Sens < 50 Total Protein 7.4 Albumin 2.6 L Lipase < 10 L Urine Color Yellow Urine Clarity Clear Urine pH 5.5 Ur Specific [place] <= 1.005 Urine Protein Negative Urine Ketones Negative Urine Blood Negative Urine Nitrite Negative Urine Bilirubin Negative Urine Urobilinogen 0.2 Ur Leukocyte Esterase Negative Urine RBC 0-2 Urine WBC Negative Ur Epithelial Cells Many Urine Crystals Negative Urine Bacteria Negative Urine Mucus Negative Ur Culture Indicated? No Urine Glucose >=1000 H 01/21/24 16:55 Blood Blood Culture - Pending 01/21/24 17:12 Blood Blood Culture - Pending Preliminary micro results at discharge 01/21/24 16:55 Blood Culture - Pending Blood 01/21/24 17:12 Blood Culture - Pending Blood PFSH All Active Problems (Updated 01/21/24 @ 22:12 by Saravanan Roblero MD) Portal vein thrombosis (Acute) Pancreatic carcinoma metastatic to liver (Acute) Pleural effusion (Acute) Ascites (Acute) Diabetes (Chronic) Medical History (Updated 01/21/24 @ 22:12 by Saravanan Roblero MD) Ascites Cholecystitis with cholangitis Liver abscess and sequelae of chronic liver disease Septic shock Metastasis from pancreatic cancer Hernia, inguinal, left Abdominal pain Abnormal weight loss Asthma Hypertension Screening for colon cancer Eye foreign body Abrasion, corneal Social History Smoking/Tobacco Use Status: Former Tobacco Use Smoking risk assessment performed?: Yes Alcohol Intake: current Alcohol Intake frequency: a few times a month Drug use: Never Substance use type: does not use Housing: other Do you feel safe at home: Yes Do you feel safe in your relationship?: Yes Time Spent with Patient Time Spent with Patient: 45-69 minutes Time was spent: preparing to see the patient(eg.review tests), obtaining and/or reviewing separately otained hiistory, ordering medications,tests, procedures, referring, communicating with other health intensive care anaesthetist, indepentently interpreting results, counseling the patient and care coordination
--- NOTE | 2024-01-22 17:30 | INITIAL_ITS ---
Date of service: 01/22/24 Time of Service: 17:30 Care Management Initial Assmt Initial Assessment Reason for Hospitalization: Stage IV pancreatic cancer, ascites Functional Status/Living Situation Patient Presentation: Vitaly was lying in bed when CM met with him; his Sabrina whitehead was by his side visiting. Vitaly stated that he would like to know if he is going to be transferred, because if not, he would like to go home. He and Sabrina shared that Vitaly was told he only has two months to live, and that he wants to be home enjoying himself, and not at the hospital. CM offered to speak to MD about the plan, and return. CM spoke to MD, who stated that Vitaly has been accepted at [facility], awaiting a bed. CM suggested palliative care to support Vitaly and Sabrina; an order was placed. CM provided education to Vitaly and Sabrina about the process of transfer. Later in the afternoon, a bed became available, and he was transferred. Town of Residence: [facility] Resides with: Spouse (Sabrina whitehead) Natural Supports: Sabrina Instrumental Activities of Daily Living (ADLs): Independent Medications Medication Management: No Issues/Barriers identified Advance Directives Advance Directives: Do you have an Advance Directive: N 12/12/20 14:29 AD On File at [facility]: N 12/12/20 14:29 Date Asked 01/21/24 01/21/24 12:01 AD Date Reviewed COLST On File at [facility] COLST Date Scanned Code Status Resuscitation Status Full Code Insurance Coverage/Financial Issues Insurance: BC/BS Care Team Visit Care Team Role Provider Type Zohaib Camargo MD Primary Care Provider NON-[facility] STAFF PHYS [facility] Emergency Provider PHYSICIANS ASSISTANT PROFESSOR OF PSYCHOLOGY Saravanan Roblero MD Admit Provider [facility] STAFF PHYSICIAN Attending Provider Discharge Potential Discharge Needs: Other (transfer) Anticipated Barriers to Discharge: Bed availability Patient/Family Education Needs: Review discharge instructions, discuss Ask Me Three Transportation: EMS Plan: Vitaly was transferred to [facility] for further care. He was transported via EMS, coord inated by RN supervisor tile and mottle. He had a palliative consult placed, and CM requested that they set up an outpatient appointment to follow him in the community. CM will continue to follow. PFSH All Active Problems (Updated 01/21/24 @ 22:12 by Saravanan Roblero MD) Portal vein thrombosis (Acute) Pancreatic carcinoma metastatic to liver (Acute) Pleural effusion (Acute) Ascites (Acute) Diabetes (Chronic) Medical History (Updated 01/21/24 @ 22:12 by Saravanan Roblero MD) Eye foreign body Abrasion, corneal Screening for colon cancer Hypertension Asthma Abnormal weight loss Abdominal pain Septic shock Hernia, inguinal, left Metastasis from pancreatic cancer Liver abscess and sequelae of chronic liver disease Cholecystitis with cholangitis Ascites Social History Smoking/Tobacco Use Status: Former Tobacco Use Smoking risk assessment performed?: Yes Alcohol Intake: current Alcohol Intake frequency: a few times a month Drug use: Never Substance use type: does not use Housing: other Do you feel safe at home: Yes Do you feel safe in your relationship?: Yes SDOH(Care Management) Screening Will the Patient Participate in the Screening?: Unable to obtain
--- NOTE | 2024-01-22 19:11 | NUR.NOTE ---
Nursing Note: Patient significant other refused for him to take 1 of 4 lypase enzyme pills (Creon). She stated that he did not need it. Placed in sharps container.
== END 2024-01-22 19:15 | disposition short-term general hospital (02) ==
LOC: ER 22:24 → MS 23:23
PROVIDERS: Admitting Provider Family Medicine; Emergency Provider Physician Assistant; PCP Family Medicine; Visit Provider Family Medicine
DX: I81 Portal vein thrombosis (principal); C25.9 Malignant neoplasm of pancreas, unspecified; C78.7 Secondary malignant neoplasm of liver and intrahepatic bile duct; R18.0 Malignant ascites; E11.9 Type 2 diabetes mellitus without complications; K83.1 Obstruction of bile duct; J90 Pleural effusion, not elsewhere classified; I10 Essential (primary) hypertension; J45.909 Unspecified asthma, uncomplicated; R63.4 Abnormal weight loss; Z87.891 Personal history of nicotine dependence
CPT/HCPCS: 00123; 36415; 80048; 80076; 83690; 87040; 93005; 96361; 96365; 96366; 96372; 96375; 96376; 99285; J1650; 74177; 81003; 81015; 82140; 83605; 83735; 84484; 85025; 85610; 93010; 99222; 99239; G0378; J0780; J1170; J1815; J1941; J1956; J3480; J3490

== ENCOUNTER 2024-01-28 18:52 | Emergency (ER) | payer BC, SELFPAY ==
[2024-01-28] VITALS (15 sets, daily range): BP systolic 103–132; BP diastolic 74–91; PULSE 103–112; RESP 16; TEMP 36.9; O2SAT 95–99
--- NOTE | 2024-01-28 19:15 | DI.RAD_ITS ---
Exam(s) XR CHEST 2V PA LATERAL EXAM: XR CHEST 2V PA LATERAL CLINICAL HISTORY: metastatic pancreatic ca, nausea vomiting TECHNIQUE: 2D digital imaging was performed. Two views. COMPARISON: CR XR ABD FLAT UPRIGHT PA CHEST from 11/09/[address] CHEST/ABD/PEL W from 01/07/2024 FINDINGS: Port noted over right upper chest. HEART: Normal size. Aorta: Not dilated. PULMONARY VASCULATURE: Normal. MEDIASTINUM: Unremarkable. LUNGS: The lungs are suboptimally inflated. Mild atelectasis. PLEURAL SPACE: No pleural effusion or pneumothorax. BONE:Unremarkable for age. SOFT TISSUES: Stents noted in the upper abdomen. IMPRESSION: No acute abnormality. DATA REPOSITORY: RADIATION DOSE DELIVERED:
--- NOTE | 2024-01-28 19:32 | W.ED.GENAD ---
Discharge Plan Disposition Patient Disposition: Home Condition: Improving Discharge Details Clinical Impression: Ascites Primary Care Provider: Zohaib Camargo ED Provider: Rodri Rodgers Home Meds and New Rx's Prescriptions: New simethicone [Gas Relief 80 (simethicone)] 80 mg tablet,chewable 80 mg PO DAILY PRNQty: 10 0RF Rx Instructions: prn gas pain No Action albuterol sulfate 90 mcg/actuation HFA aerosol inhaler 2 puff inhalation Q6H PRN metformin 500 mg tablet 500 mg PO BID insulin glargine [Lantus Solostar U-100 Insulin] 100 unit/mL (3 mL) insulin pen 10 unit subcut QPM morphine 15 mg tablet extended release 15 mg PO Q12H Patient Comments: TAKE ONE TABLET BY MOUTH TWICE A DAY oxycodone 10 mg tablet 10 mg PO Q4H PRN Patient Comments: TAKE 1-2 TABLETS BY MOUTH EVERY 4 HOURS NEEDED FOR PAIN Jardiance 10 mg tablet 10 mg PO ONCE Patient Comments: TAKE ONE TABLET BY MOUTH EVERY DAY sennosides [senna] 8.6 mg tablet 8.6 mg PO DAILY Patient Comments: TAKE ONE TABLET BY MOUTH TWICE A DAY Creon 24,000-76,000 -120,000 unit capsule,delayed release(DR/EC) 4 cap PO .COMPLEX Patient Comments: TAKE FOUR CAPSULES BY MOUTH PER MEAL AND 2-3 PER SNACK (15 PER DAY) Rx Instructions: 4 caps orally with meals; potassium chloride 20 mEq tablet,ER particles/crystals 20 meq PO BID Patient Comments: TAKE ONE TABLET BY MOUTH TWICE A DAY prochlorperazine maleate 10 mg tablet 10 mg PO TID ondansetron 4 mg tablet,disintegrating 4 mg translingual TID magnesium oxide 400 mg (241.3 mg magnesium) tablet Discharge Instructions Instructions: Fluid in the Belly (Ascites) (DC) Additional Instructions: Please follow-up with your primary care physician and oncology team. Please return to the emergency department for any worsening symptoms HPI General Date/Time Provider Initiated Documentation: 01/28/24 19:12. HPI Narrative: 53-year-old male history of metastatic pancreatic cancer recent discharge from [facility] had a Pleurx catheter placed in his abdomen to drain his ascites presents with nausea and vomiting after draining ascites over the last couple of days, has been draining 2000 to 4000 cc of clear ascites over the last couple of days. Related Data Home Medications ?Medication ?Instructions ?Recorded ?Confirmed albuterol sulfate 90 mcg/actuation 2 puff inhalation Q6H PRN 03/27/22 01/28/24 aerosol inhaler insulin glargine 100 unit/mL (3 10 unit subcut QPM 03/27/22 01/28/24 mL) subcutaneous pen (Lantus Solostar U-100 Insulin) metformin 500 mg tablet 500 mg PO BID 03/27/22 01/28/24 empagliflozin 10 mg tablet 10 mg PO ONCE 06/04/23 01/28/24 (Jardiance) morphine 15 mg tablet,extended 15 mg PO Q12H 06/04/23 01/28/24 release oxycodone 10 mg tablet 10 mg PO Q4H PRN 06/04/23 01/28/24 hienir-olblruhi-swmxucj 4 cap PO .COMPLEX 07/31/23 01/28/24 24,000-76,000-120,000 unit capsule,delayed rel (Creon) potassium chloride 20 mEq 20 meq PO BID 07/31/23 01/28/24 tablet,extended release(part/cryst) sennosides 8.6 mg tablet (senna) 8.6 mg PO DAILY 07/31/23 01/28/24 magnesium oxide 400 mg (241.3 mg mg 01/28/24 magnesium) tablet ondansetron 4 mg disintegrating 4 mg translingual TID 01/28/24 01/28/24 tablet prochlorperazine maleate 10 mg 10 mg PO TID 01/28/24 01/28/24 tablet simethicone 80 mg chewable tablet 80 mg PO DAILY PRN #10 tabs 01/28/24 (Gas Relief 80 (simethicone)) Previous Rx's ?Medication ?Instructions ?Recorded simethicone 80 mg chewable tablet 80 mg PO DAILY PRN #10 tabs 01/28/24 (Gas Relief 80 (simethicone)) Allergies Allergy/AdvReac Type Severity Reaction Status Date / Time diphenhydramine Allergy Anaphylaxis Verified 01/28/24 19:06 General Stated Complaint: GenMedical SHANNON: 2 Exam Narrative Exam Narrative: Frail cachectic Dry skin dry oral mucosa Mildly distended abdomen nontense ascites with fluid wave, Pleurx catheter in place clean dry intact no erythema induration or purulence Moving all extremities that deficit Alert oriented No respiratory distress speaking full sentences lungs clear bilaterally No rashes or ecchymosis noted Course Vital Signs Vital signs: Vital Signs Temperature 36.9 C 01/28/24 19:00 Pulse 112 H 01/28/24 19:00 Respiratory Rate 16 01/28/24 19:00 Blood Pressure 115/83 01/28/24 19:00 Pulse Oximetry 96 01/28/24 19:00 Temperature 36.9 C 01/28/24 19:00 Temperature Source Oral 01/28/24 19:00 Pulse 112 H 01/28/24 19:00 Respiratory Rate 16 01/28/24 19:00 Respiratory Effort Normal 01/28/24 19:08 Blood Pressure 115/83 01/28/24 19:00 Pulse Oximetry 96 01/28/24 19:00 Oxygen Delivery Method Room Air 01/28/24 19:00 Oxygen Flow Rate 0 01/28/24 19:00 Pain Level 9 01/28/24 19:00 Medical Decision Making 53-year-old male with metastatic pancreatic cancer recently discharged at [facility] with Pleurx drain from abdomen to drain ascites presents with intermittent nausea and vomiting after draining ascites over the last couple of days draining 2000 to 4000 cc/day, clear ascites, afebrile, relatively nontoxic however does appear frail and cachectic as well as mildly dehydrated with dry oromucosa dry skin, speaking full sentences no respiratory distress no tachypnea no hypoxia, abdomen soft mildly distended without tense ascites does have fluid wave, nonperitoneal, Pleurx drain from left side of abdomen clean dry intact no purulence fluctuance or bleeding consider dehydration related to hypovolemia in the setting of multiple high-volume ascites drainages versus hypoalbuminemia versus electrolyte derangement muscles consider infectious process such as viral illness versus pneumonia lower suspicion for UTI lower suspicion for spontaneous bacterial peritonitis given history and physical examination will obtain basic labs chest x-ray fluids blood cultures urinalysis fluid repletion will consider albumin infusion pending lab results. 21: 15 patient still feeling nauseous and uncomfortable. Have added hydromorphone order, will obtain CT abdomen pelvis to assess for intra-abdominal pathology 10: 25 resting comfortably no acute distress. No vomiting or diarrhea here in department. Hemodynamically stable. Albumin running in. CT largely unchanged labs unremarkable. Quality:[facility] Health Related Social Needs: No Data to Display PFSH All Active Problems (Updated 01/28/24 @ 22:26 by Rodri Rodgers MD) Portal vein thrombosis (Acute) Pancreatic carcinoma metastatic to liver (Acute) Pleural effusion (Acute) Ascites (Acute) Diabetes (Chronic) Medical History (Updated 01/28/24 @ 22:26 by Rodri Rodgers MD) Eye foreign body Abrasion, corneal Screening for colon cancer Hypertension Asthma Abnormal weight loss Abdominal pain Septic shock Hernia, inguinal, left Metastasis from pancreatic cancer Liver abscess and sequelae of chronic liver disease Cholecystitis with cholangitis Ascites Social History Smoking/Tobacco Use Status: Former Tobacco Use Smoking risk assessment performed?: Yes Alcohol Intake: current Alcohol Intake frequency: a few times a month Drug use: Never Substance use type: does not use Housing: other Do you feel safe at home: Yes Do you feel safe in your relationship?: Yes
[2024-01-28 19:53] LABS: Abs Immature Grans 0.02 10^3/uL (0.0-0.06); Absolute Basophil Count 0.01 10^3/uL (0.0-0.2); Absolute Eosinophil Count 0.08 10^3/uL (0.0-0.7); Absolute Lymphocyte Count 0.25 10^3/uL (1.2-3.4); Absolute Monocyte Count 0.31 10^3/uL (0.1-0.8); Basophils % 0.3 %; Eosinophils % 2.4 %; HCT 31.1 % (40.0-50.0); HGB 9.6 g/dL (13.5-17.5); Immature Grans % 0.6 %; Lymphocytes % 7.4 %; MCH 27.2 pg (27.0-33.0); MCHC 30.9 % (32.0-36.0); MCV 88 fL (80-95); MPV 11.3 fL (8.0-11.0); Monocytes % 9.2 %; Neutrophils % 80.1 %; Platelet Count 120 10^3/uL (130-400); RBC 3.53 10^6/uL (4.36-5.78); RDW 18.1 % (11.8-14.1); RDW-SD 57.8 fL; WBC 3.37 10^3/uL (4.4-10.8)
[2024-01-28 20:05] LABS: INR 1.1 (0.9-1.1); PTT Activated 32.1 sec (23.6-32.8); Prothrombin Time 10.6 sec (9.1-11.1)
[2024-01-28 20:17] LABS: ALT 24 U/L (16-63); AST 20 U/L (15-37); Albumin 2.4 g/dL (3.4-5.0); Alkaline Phosphatase 112 U/L (46-116); Anion Gap 8.9 mmol/L (3-11); BUN 11 mg/dL (7-18); Bilirubin, Total 0.34 mg/dL (0.2-1.0); CO2 28.1 mmol/L (21.0-32.0); CREATININE 1.1 mg/dL (0.70-1.30); Chloride 102 mmol/L (98-107); Estimated GFR 79.28 (mL/min/1.73m2); Glucose 258 mg/dL (74-106); Potassium 4.4 mmol/L (3.5-5.1); Sodium 139 mmol/L (136-145); Total Protein 7.7 g/dL (6.4-8.2)
[2024-01-28 20:17] LABS: Bilirubin Negative (Negative); Blood Negative (Negative); Clarity Clear (Clear); Glucose 500 mg/dL (Negative); Ketones Negative (Negative); Leukocyte Esterase Negative (Negative); Nitrite Negative (Negative); Urobilinogen 0.2 mg/dL (Up to 0.2); pH 5.5 (5-8)
[2024-01-28] MEDS: Normal Saline 1,000 ML 1000 ML IV (20:25)
[2024-01-28] MEDS: Ondansetron 4 MG/2 ML VIAL IVP (20:37)
[2024-01-28] MEDS: Ketorolac 15 MG/ML VIAL IVP (20:37)
[2024-01-28 20:41] LABS: COVID-19 PCR Negative (Negative); Influenza A PCR Negative (Negative); Influenza B PCR Negative (Negative); RSV PCR Negative (Negative)
[2024-01-28 20:42] LABS: Source NASOPHARYNX
--- NOTE | 2024-01-28 21:00 | DI.CT_ITS ---
Exam(s) CT ABDOMEN PELVIS W EXAM: CT ABDOMEN PELVIS W CLINICAL HISTORY: abd pain, metastatic pancreatic ca. TECHNIQUE: Imaging Protocol: Axial computed tomography images with coronal and sagittal reformatted images were created and reviewed CONTRAST MATERIAL: Intravenous: Omnipaque 350 Contrast volume:100 ml Oral: no COMPARISON: CT CT ABDOMEN PELVIS W from 01/21/2024 FINDINGS: ABDOMEN and PELVIS: Lung Bases: Small left pleural effusion, decreased from prior. Liver: Portal vein stent , again noted to be occluded. Stable appearance of lesions in the left lobe and caudate. Gallbladder and biliary tract: And gallbladder are mildly contracted. No radiodense calculus. Commo n bile duct stent again noted. Pneumobilia. Pancreas: Dilated pancreatic duct again noted. Pancreatic head mass not well-defined. Spleen: Enlarged, unchanged. Kidneys: Normal size, contour and axis. Nonobstructing bilateral renal calculi. No obstructive urop athy. No suspicious masses seen. Adrenal glands: No masses seen. Vasculature: Abdominal aorta non-dilated. Soft tissues: New drainage catheter entering from the left lateral abdomen with the tip in the right lower to mid abdomen.. Left inguinal hernia containing fluid. Bladder: No gross wall thickening. No calculi.No focal mass. Bowel: Duodenal stent in place. The stomach is somewhat distended with fluid. This could be seconda ry to an element of obstruction this above the level of the duodenal stent. Similar appearance of mi ld small bowel dilatation wall enhancement. Peritoneal cavity: Increase in amount of ascites, large volume. Ascites. No focal collection. No me senteric inflammatory response. Bones: Unremarkable for age. Reproductive organs: Unremarkable. Lymph nodes: No pathologically enlarged lymph nodes. IMPRESSION:: Increase in amount of ascites. Status post placement of drainage catheter in the perit santos cavity. Decreased size of right pleural effusion. Gastric distension which could be secondary to partial obstruction by mass or inflammation just above the level of the duodenal stent. Stable appearance of mild bowel dilatation and wall enhancement. RADIATION DOSE DELIVERED: 411.72mGy.cm Total DLP DATA REPOSITORY: All CT scans at this facility are submitted to the National Radiology Data Registry (NRDR) Dose Index Registry (DIR) with the [employer] ([employer]). RADIATION OPTIMIZATION: All CT scans at this facility use at least one of these dose optimization te chniques: automated exposure control; mA and/or kV adjustment per patient size (includes targeted exa ms where dose is matched to clinical indication); or iterative reconstruction.
--- NOTE | 2024-01-28 21:06 | DI.VRAD_ITS ---
PROCEDURE INFORMATION: Exam: XR Chest Exam date and time: 01/28/2024 8:20 PM Age: 53 years old Clinical indication: Other: Metastatic pancreatic CA, nausea vomiting TECHNIQUE: Imaging protocol: Radiologic exam of the chest. Views: 2 views. COMPARISON: CT CHEST/ABD/PEL W 01/07/2024 1:18 AM FINDINGS: Tubes, catheters and devices: Right-sided Port-A-Cath in place. Lungs: Minimal left lower lobe atelectasis noted. Lung volumes are relatively reduced. Pleural spaces: Unremarkable. No pleural effusion. No pneumothorax. Heart/Mediastinum: Unremarkable. No cardiomegaly. Diaphragm: There is mild elevation of the left hemidiaphragm. Bones/joints: Unremarkable. Intraperitoneal space: Scattered air-fluid levels are noted in the upper abdomen. Other findings: No significant effusions. IMPRESSION: 1. Mild hypoinflation and left lower lobe atelectasis. 2. Probable abdominal ileus. Dictated and Authenticated by: Nikole Rosario MD. Ordering:BRAD Mace MD
[2024-01-28] MEDS: HYDROmorphone 2 MG/ML SYR 1 MG IVP (21:28)
[2024-01-28] MEDS: Omnipaque 350 MG/ML 100 ML BTL IJ (21:43)
[2024-01-28] MEDS: Normal Saline - Diluent 50 ML VIAL IJ (21:43)
[2024-01-28] MEDS: ALBUMIN HUMAN 25 GM/100 ML BTL IVPB (22:05)
--- NOTE | 2024-01-28 22:15 | DI.VRAD_ITS ---
PROCEDURE INFORMATION: Exam: CT Abdomen And Pelvis With Contrast Exam date and time: 01/28/2024 9:41 PM Age: 53 years old Clinical indication: Abdominal pain; Prior surgery; Surgery date: 6+ months; Surgery type: Stents x 4; Additional info: Abd pain, metastatic pancreatic CA TECHNIQUE: Imaging protocol: Computed tomography of the abdomen and pelvis with contrast. Contrast material: OMNI 350; Contrast volume: 85 ml; Contrast route: INTRAVENOUS (IV); COMPARISON: CT ABDOMEN PELVIS W 01/21/2024 6:05 PM. Report not available. FINDINGS: Tubes, catheters and devices: Left drainage catheter identified, new since previous study. The tip is in the right lower abdomen. Pleural spaces: Previously seen left pleural effusion is reduced. Liver: See Gallbladder and biliary ducts finding. Gallbladder and biliary ducts: Pneumobilia with mild biliary ectasia overall unchanged. Biliary stent remains in place. There appears to be a degree of gallbladder contracture. Gallbladder wall thickening again seen. Left lobe hepatic mass again noted 2 cm in diameter. Low-density caudate lobe lesion unchanged. Pancreas: Pancreatic ductal distension again seen. Diameter is to 6 mm. Pancreatic head mass is again seen. There is some adjacent air, unchanged. Suspect degree of necrosis. Spleen: No change splenomegaly. Adrenal glands: Normal. No mass. Kidneys and ureters: Nonobstructing bilateral renal calculi. No significant hydronephrosis or hydroureter. Stomach and bowel: Duodenal stent remains in place, patent. Mild gastric distension. There is some wall thickening and hyperemia involving jejunal bowel loops, unchanged from previous exam. Appendix: No evidence of appendicitis. Intraperitoneal space: There appears to be some increase in the amount of ascites. Vasculature: Portal vein stent again seen, occluded. This is unchanged from previous study. Lymph nodes: Unremarkable. No enlarged lymph nodes. Urinary bladder: Unremarkable as visualized. Reproductive: Unremarkable as visualized. Bones/joints: Moderate lumbar spondylosis. Soft tissues: Fluid and fat containing left inguinal hernia identified. IMPRESSION: 1. Slight increased ascites compared to prior study. Left-sided indwelling catheter identified. 2. Portal venous stent remains in place, occluded. 3. Biliary stent again seen. 4. Duodenal stent identified, patent. 5. No change hepatic metastases. Dictated and Authenticated by: Nikole Rosario MD. Ordering:BRAD Mace MD
[2024-01-28] MEDS: Simethicone 80 MG CHEW 40 MG PO (22:32)
== END 2024-01-28 22:42 | disposition home or self-care (01) ==
PROVIDERS: Emergency Provider Emergency Medicine; PCP Family Medicine
DX: R11.2 Nausea with vomiting, unspecified (principal); R18.8 Other ascites; C25.9 Malignant neoplasm of pancreas, unspecified; C78.7 Secondary malignant neoplasm of liver and intrahepatic bile duct
CPT/HCPCS: 36415; 80053; 87040; 87637; 96361; 96365; 96375; 99285; 71046; 74177; 81003; 83735; 85025; 85610; 85730; 99283; J1170; J1885; J2405; J3490; P9047